=== PATIENT | female | born 1995 | race Caucasian/White ===

== ENCOUNTER 2019-05-01 07:59 | Outpatient (CLI) | payer OTHER, SELFPAY ==
[2019-05-01 08:48] LABS: Basophils Percent Auto 0.4 % (0.2-1.2); Eosinophils Absolute Auto 0.1 K/mm3 (0-0.3); Eosinophils Percent Auto 1.7 % (0-4.4); Hematocrit 38.6 % (37.0-47.0); Hemoglobin 12.9 g/dL (12.0-15.0); Immature Granulocyte Absolute 0.01 K/mm3 (0.00-0.031); Immature Granulocyte Percent A 0.2 % (0-0.5); Lymphocytes Absolute Auto 1.41 K/mm3 (0.9-3.2); Lymphocytes Percent Auto 26.1 % (18.3-44.2); Mean Corpuscular HGB Conc 33.4 g/dl (32-36); Mean Corpuscular Hemoglobin 28.9 pg (26-34); Mean Corpuscular Volume 86.4 fl (80-100); Mean Platelet Volume 9.2 fl (7.4-10.4); Monocytes Absolute Auto 0.5 K/mm3 (0.1-0.6); Monocytes Percent Auto 9.2 % (2.6-8.5); Neutrophils Absolute Auto 3.4 K/mm3 (1.3-6.7); Neutrophils Percent Auto 62.4 % (45.5-73.1); Platelet Count Result 254 k/mm3 (150-375); Red Blood Count 4.47 M/mm3 (4.2-5.4); Red Cell Distribution Width 12.5 % (11.5-14.5); White Blood Count 5.4 K/mm3 (4.5-10.0)
[2019-05-01 09:02] LABS: Alanine Aminotransferase 29 U/L (4-35); Albumin Level 4.4 g/dL (3.5-5.1); Alkaline Phosphatase 69 U/L (38-126); Aspartate Amino Transferase 34 U/L (14-36); Bilirubin,Total 0.5 mg/dL (0.2-1.3); Blood Urea Nitrogen 19 mg/dL (7-17); Calcium 8.4 mg/dL (8.4-10.2); Carbon Dioxide 22 mmol/L (22-30); Chloride 103 mmol/L (98-107); Estimated Glomerular Filt Rate > 60; Glucose 96 mg/dL (65-105); Sodium 139 mmol/L (137-145)
[2019-05-01 09:20] LABS: Rheumatoid Factor 65.2 IU/ML (<12)
[2019-05-01 09:30] LABS: Free T4 Free Thyroxine 0.75 ng/mL (0.78-2.19)
[2019-05-01 09:34] LABS: Cortisol Random 7.73 ug/dL
[2019-05-01 10:08] LABS: Folic Acid 13.9 ng/mL (2.76->20)
[2019-05-03 04:49] LABS: Insulin Level Total 4.6 uIU/mL (<=19.6); Thyroid Peroxidase Antibodies 204 IU/mL (<9)
[2019-05-03 12:39] LABS: LH 3.9 mIU/mL (***); Progesterone 4.2 ng/mL (***); Triiodothyronine T3 Free 3.3 pg/mL (2.3-4.2)
[2019-05-04 04:27] LABS: Adrenocorticotropic Hormone 18 pg/mL (6-50)
[2019-05-04 13:54] LABS: Thyroid Stimulating Immunoglob <89 % baseline (<140)
[2019-05-04 15:40] LABS: Testosterone Free 2.2 pg/mL (0.1-6.4); Testosterone Total 20 ng/dL (2-45)
[2019-05-06 13:19] LABS: DHEA-Sulfate 121 mcg/dL (18-391)
== END 2019-05-01 08:00 | disposition home or self-care (01) ==
PROVIDERS: Visit Provider Internal Medicine Endocrinology, Diabetes & Metabolism
DX: E06.3 Autoimmune thyroiditis (principal); N92.6 Irregular menstruation, unspecified; R53.83 Other fatigue
CPT/HCPCS: 36415; 80053; 82024; 82533; 82607; 82627; 82746; 83001; 83002; 83525; 84144; 84146; 84402; 84403; 84439; 84443; 84445; 84481; 85025; 86038; 86376; 86430

== ENCOUNTER 2019-05-02 07:33 | Outpatient (CLI) | payer OTHER, SELFPAY ==
--- NOTE | ~2019-05-02 | US_ITS ---
EXAMINATION: US thyroid EXAM DATE: 05/02/2019 07:57 INDICATION: Goiter. TECHNIQUE: Multiple grayscale and Doppler images of the thyroid were obtained (by a technologist who performed the scan) and subsequently reviewed. Individual nodules may be reported using TI-RADS syst em as designated by the 2017 ACR White Paper TI-RADS committee. Comparison is made to prior examinati on from 07/11/2012. FINDINGS: Right thyroid lobe measures 3.7 x 2.1 x 1.3 cm, the left measuring 3.4 x 1.7 x 1.2 cm. There is diffu sely mildly heterogeneous thyroid echogenicity with mildly lobular contour, but no focal nodules iden tified. The isthmus measures 4 mm in thickness. IMPRESSION: Mildly heterogeneous and enlarged thyroid. Reviewed, dictated and finalized at location B. 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
== END 2019-05-02 07:34 | disposition home or self-care (01) ==
LOC: ANHIMG 07:39
PROVIDERS: Visit Provider Internal Medicine Endocrinology, Diabetes & Metabolism
DX: E04.9 Nontoxic goiter, unspecified (principal)
CPT/HCPCS: 76536

== ENCOUNTER 2019-06-20 07:45 | Outpatient (CLI) | payer OTHER, SELFPAY ==
[2019-06-20 08:20] LABS: Alanine Aminotransferase 18 U/L (4-35); Albumin Level 4.5 g/dL (3.5-5.1); Alkaline Phosphatase 56 U/L (38-126); Aspartate Amino Transferase 29 U/L (14-36); Bilirubin,Total 0.2 mg/dL (0.2-1.3); Blood Urea Nitrogen 18 mg/dL (7-17); Calcium 9.2 mg/dL (8.4-10.2); Carbon Dioxide 30 mmol/L (22-30); Chloride 102 mmol/L (98-107); Estimated Glomerular Filt Rate > 60; Glucose 115 mg/dL (65-105); Potassium 4.2 mmol/L (3.4-5.0); Sodium 137 mmol/L (137-145)
[2019-06-22 12:10] LABS: Triiodothyronine T3 Free 2.9 pg/mL (2.3-4.2)
== END 2019-06-20 07:46 | disposition home or self-care (01) ==
LOC: ANHLAB 07:50
PROVIDERS: Visit Provider Internal Medicine Endocrinology, Diabetes & Metabolism
DX: E03.9 Hypothyroidism, unspecified (principal)
CPT/HCPCS: 36415; 80053; 84439; 84443; 84481

== ENCOUNTER 2020-01-18 06:43 | Emergency (ER) | payer OTHER, SELFPAY ==
--- NOTE | ~2020-01-18 | XR_ITS ---
EXAMINATION: XR elbow RT min 3V DATE: 01/18/2020 08:40 INDICATION: Right elbow pain. TECHNIQUE: 4 views of right elbow were obtained. COMPARISON: None. FINDINGS: Bone alignment is normal. No fracture. Joint spaces are well maintained. There is no elbow joint effusion. IMPRESSION: 1. Normal right elbow. Reviewed, dictated and finalized at location B. 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 Normal right elbow.
[2020-01-18 06:48] VITALS: BP 134/84; PULSE 58; RESP 18; TEMP 36.9; O2SAT 100
--- NOTE | 2020-01-18 08:14 | ED.UPPEXIN ---
HPI - Extremity Injury (Upper) General Chief Complaint: Extremity Injury, Upper Stated Complaint: elbow swelling and pain Time Seen by Provider: 01/18/20 08:13 Source: patient Mode of arrival: ambulatory Limitations: no limitations History of Present Illness HPI narrative: 24 years old female complaining of right elbow pain, worse with movement, started 2 weeks ago and gradually getting worse. 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 Right elbow pain started day 1 and gradually getting worse. Was seen by her family physician 1 week ago started on anti-inflammatory medication without improvement. Patient denies any trauma, fever, chills, nausea, vomiting. Related Data Home Medications Medication Instructions Recorded Confirmed carbamazepine 400 mg PO BID 01/18/20 sertraline 100 mg PO HS 01/18/20 thyroid (pork) [[place] Thyroid] 30 mg PO QACDINNER 01/18/20 thyroid (pork) [[place] Thyroid] 60 mg PO DAILY 01/18/20 topiramate 50 mg PO BID 01/18/20 Allergies Allergy/AdvReac Type Severity Reaction Status Date / Time No Known Allergies Allergy Unknown Verified 01/18/20 06:56 Review of Systems Review of Systems: Narrative: CONSTITUTIONAL: Denies fever, chills, or sweats. EYES: Denies visual changes, redness, or discharge. ENT: Denies rhinorrhea, congestion, sore throat, or otalgia. CARDIOVASCULAR: Denies chest pain, palpitations, or edema. RESPIRATORY: Denies cough or dyspnea. GASTROINTESTINAL: Denies abdominal pain, nausea, vomiting, or diarrhea. GENITOURINARY: Denies dysuria or hematuria. SKIN: Denies rash or itching. MUSCULOSKELETAL: Denies back pain, joint pain, or myalgia. NEUROLOGIC: Denies headache, numbness, or weakness. PSYCHIATRIC: Denies anxiety or depression. PMFSH Social History Social History Gender identity (if verbalized by the patient): Female Exam Narrative: Exam Narrative: General appearance: Well-developed, well-nourished Skin: Normal color Chest and respiratory: Airway patent, no respiratory distress, no accessory muscle use Heart: Regular rate/rhythm Vascular: Normal peripheral pulses, normal capillary refill. 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 Right elbow x-ray ordered. Patient need to stop her job or do light activity job. Anti-inflammatory medication to help to cool the pain down but not to cure the underlying cause which is strenuous physical work. Differential Diagnosis Differential diagnosis: Likely other (Avulsion fracture, musculoskeletal strain/sprain) Critical Care Time Critical Care Time Critical Care Time: No Discharge Plan Discharge Clinical Impression: Strain of elbow, right Qualifiers: Encounter type: subsequent encounter Qualified Code(s): S46.911D - St
--- NOTE | 2020-01-18 08:46 | PC.NURSE ---
pt refusing motrin. pt requesting mri. states does not appreciate having edps educated guess of diagnosis. somebody better figure something out . charge nurse notified and asked to speak with pt.
== END 2020-01-18 09:35 | disposition home or self-care (01) ==
PROVIDERS: Emergency Provider Emergency Medicine
DX: S46.911A Strain of unspecified muscle, fascia and tendon at shoulder and upper arm level, right arm, initial encounter (principal); X50.3XXA Overexertion from repetitive movements, initial encounter
CPT/HCPCS: 73080; 99283

== ENCOUNTER 2020-04-23 10:07 | Emergency (ER) | payer OTHER, SELFPAY ==
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
[2020-04-23 10:30] VITALS: BP 129/92; PULSE 83; RESP 18; TEMP 37.1; O2SAT 100
[2020-04-24 13:13] LABS: SARS-CoV-2 RNA PCR Negative
== END 2020-04-23 10:35 | disposition home or self-care (01) ==
PROVIDERS: Emergency Provider Nurse Practitioner Family
DX: J02.9 Acute pharyngitis, unspecified (principal); Z20.822 Contact with and (suspected) exposure to COVID-19; E78.00 Pure hypercholesterolemia, unspecified; I10 Essential (primary) hypertension; E03.9 Hypothyroidism, unspecified; F41.9 Anxiety disorder, unspecified; F32.9 Major depressive disorder, single episode, unspecified
CPT/HCPCS: 87081; 87426; 87880; 99213; C9803; G0463; U0003; U0005

== ENCOUNTER 2020-05-07 20:48 | Emergency (ER) | payer OTHER, SELFPAY ==
[2020-05-07 20:53] VITALS: BP 132/82; PULSE 67; RESP 23; TEMP 36.4; O2SAT 99
== END 2020-05-08 00:26 | disposition left against medical advice (07) ==
LOC: ANHED 22:45
DX: L29.2 Pruritus vulvae (principal)
CPT/HCPCS: 99199

== ENCOUNTER 2020-06-08 15:12 | Emergency (ER) | payer OTHER, SELFPAY ==
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
[2020-06-08 15:40] VITALS: BP 120/75; PULSE 70; RESP 16; TEMP 35.8; O2SAT 98
== END 2020-06-08 15:50 | disposition home or self-care (01) ==
PROVIDERS: Emergency Provider Nurse Practitioner
DX: J32.9 Chronic sinusitis, unspecified (principal); E78.00 Pure hypercholesterolemia, unspecified; I10 Essential (primary) hypertension; E03.9 Hypothyroidism, unspecified; F41.9 Anxiety disorder, unspecified; F31.9 Bipolar disorder, unspecified
CPT/HCPCS: 99213; G0463

== ENCOUNTER 2021-03-20 12:24 | Emergency (ER) | payer OTHER, SELFPAY ==
[2021-03-20 12:34] VITALS: BP 121/80; PULSE 61; RESP 18; TEMP 36.7; O2SAT 97
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
== END 2021-03-20 13:06 | disposition home or self-care (01) ==
PROVIDERS: Emergency Provider Nurse Practitioner
DX: J02.0 Streptococcal pharyngitis (principal); Z20.822 Contact with and (suspected) exposure to COVID-19; E78.00 Pure hypercholesterolemia, unspecified; I10 Essential (primary) hypertension; E03.9 Hypothyroidism, unspecified; F12.90 Cannabis use, unspecified, uncomplicated
CPT/HCPCS: 87426; 87880; 99213; C9803; G0463

== ENCOUNTER 2021-07-01 09:04 | Emergency (ER) | payer OTHER, SELFPAY ==
[2021-07-01 09:06] VITALS: BP 133/74; PULSE 97; RESP 18; TEMP 36.8; O2SAT 100
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
[2021-07-01 10:01] LABS: Add Urine Microscopic? YES; Appearance Urine Cloudy (Clear); Bacteria Urine Trace /hpf; Bilirubin Urine Negative (Negative); Blood Urine 1+ (Negative); Color Urine Yellow (Yellow); Glucose Urine UA Negative (Negative); Ketones Urine Negative (Negative); Leukocyte Esterase Ur 3+ LEU/UL (Negative); Mucus Urine Moderate /lpf; Nitrate Urine Negative (Negative); Protein Urine 1+ mg/dL (Negative); Squamous Epithelial Cell Urine Many /hpf (Few); Urobilinogen Urine Negative mg/dL (<2.0)
[2021-07-01 10:05] LABS: Specific Grav Ur 1.032 (1.001-1.035)
[2021-07-01] MEDS: FLUCONAZOLE 150 MG TABLET PO (10:07)
== END 2021-07-01 10:34 | disposition home or self-care (01) ==
PROVIDERS: Physician Assistant; Emergency Provider Emergency Medicine
DX: B37.3 Candidiasis of vulva and vagina (principal); N39.0 Urinary tract infection, site not specified; F31.9 Bipolar disorder, unspecified; E78.00 Pure hypercholesterolemia, unspecified; I10 Essential (primary) hypertension; E03.9 Hypothyroidism, unspecified
CPT/HCPCS: 81001; 81025; 87086; 87088; 99283; A9270

== ENCOUNTER 2021-07-03 05:07 | Emergency (ER) | payer OTHER, SELFPAY ==
[2021-07-03 05:11] VITALS: BP 136/86; PULSE 89; RESP 18; TEMP 36.1; O2SAT 98
--- NOTE | 2021-07-03 05:15 | PC.NURSE ---
When triaging pt RN asked pt for weight. Pt states I will not give that to you. RN asked if pt could write it down. Pt states I dont know what you dont understand. I am not giving it to you. RN explained need to dose medications off weight. Pt stated Well we will cross that bridge when we get there wont we.
[2021-07-03] MEDS: HYDROcodone/acetaminophen (*CRX) 5-325 MG TABLET 1 TAB PO (05:31)
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
[2021-07-03 05:48] LABS: Add Urine Microscopic? YES; Appearance Urine Turbid (Clear); Bacteria Urine 1+ /hpf; Bilirubin Urine Negative (Negative); Blood Urine 1+ (Negative); Calcium Oxalate Crystals Urine Present /hpf; Color Urine Amber (Yellow); Glucose Urine UA Negative (Negative); Ketones Urine Negative (Negative); Leukocyte Esterase Ur 2+ LEU/UL (Negative); Mucus Urine Moderate /lpf; Nitrate Urine Positive (Negative); Protein Urine 1+ mg/dL (Negative); RBC Urine >75 /hpf (0-2); Squamous Epithelial Cell Urine Many /hpf (Few); WBC Clumps Urine Present /HPF; WBC Urine >75 /hpf
[2021-07-03 05:56] LABS: Specific Grav Ur 1.032 (1.001-1.035)
[2021-07-03 06:04] LABS: Basophils Percent Auto 0.2 % (0.2-1.2); Eosinophils Absolute Auto 0.2 K/mm3 (0-0.3); Eosinophils Percent Auto 2.4 % (0-4.4); Hematocrit 40.6 % (37.0-47.0); Immature Granulocyte Absolute 0.04 K/mm3 (0.00-0.031); Immature Granulocyte Percent A 0.4 % (0-0.5); Lymphocytes Absolute Auto 1.99 K/mm3 (0.9-3.2); Lymphocytes Percent Auto 20.2 % (18.3-44.2); Mean Corpuscular Hemoglobin 27.5 pg (26-34); Mean Corpuscular Volume 85.8 fl (80-100); Monocytes Percent Auto 9.9 % (2.6-8.5); Neutrophils Absolute Auto 6.6 K/mm3 (1.3-6.7); Neutrophils Percent Auto 66.9 % (45.5-73.1); Platelet Count Result 291 k/mm3 (150-375); Red Blood Count 4.73 M/mm3 (4.2-5.4); Red Cell Distribution Width 13.6 % (11.5-14.5); White Blood Count 9.8 K/mm3 (4.5-10.0)
[2021-07-03 06:14] LABS: Anion Gap 5 mmol/L (8-16); Blood Urea Nitrogen 16 mg/dL (7-17); Calcium 8.4 mg/dL (8.4-10.2); Carbon Dioxide 24 mmol/L (22-30); Chloride 109 mmol/L (98-107); Estimated Glomerular Filt Rate > 60; Glucose 129 mg/dL (65-110); Potassium 3.9 mmol/L (3.4-5.0); Sodium 138 mmol/L (137-145)
[2021-07-03] MEDS: cefTRIAXone 1 GM VIAL IM (06:26)
[2021-07-03 06:29] VITALS: BP 143/89; PULSE 59; RESP 18; O2SAT 98
== END 2021-07-03 06:42 | disposition home or self-care (01) ==
PROVIDERS: Emergency Provider Family Medicine
DX: N30.00 Acute cystitis without hematuria (principal); B37.3 Candidiasis of vulva and vagina; E11.65 Type 2 diabetes mellitus with hyperglycemia; E06.3 Autoimmune thyroiditis; E78.00 Pure hypercholesterolemia, unspecified; I10 Essential (primary) hypertension; E03.9 Hypothyroidism, unspecified
CPT/HCPCS: 36415; 80048; 81001; 85025; 87070; 87086; 87491; 87591; 87808; 96372; 99284; A9270; J0696

== ENCOUNTER 2021-08-08 04:10 | Emergency (ER) | payer OTHER, SELFPAY ==
--- NOTE | ~2021-08-08 | CT_ITS ---
EXAMINATION: CTA chest PE protocol DATE: 08/08/2021 06:40 CDT INDICATION: Sharp right chest pain. TECHNIQUE: Computed tomographic angiography (CTA) of the chest was performed with 100 mL Omnipaque-35 0 intravenous contrast. The dose-length product was 762.69 mGy-cm. Maximum intensity projection 3D-re constructions of the aorta and other arteries were constructed by the technologist on a separate work station. Automated exposure control and iterative reconstruction technique were employed. COMPARISON: Chest x-ray dated 09/25/2014. FINDINGS: Study is technically adequate without evidence for pulmonary embolism. No significant pleur al or pericardial effusion. Mildly enlarged mediastinal lymph node and precarinal location measuring 12 mm. There are nonenlarged axillary lymph nodes. Upper abdomen is unremarkable. No pneumothorax. Th ere is a 5 mm fissural lymph node on the right, image 48. No focal airspace consolidation. No pneumot horax. No endobronchial lesions. No acute osseous abnormality. IMPRESSION: 1. No acute cardiopulmonary disease. No evidence for pulmonary embolism. 2: Mild mediastinal lymphadenopathy, likely reactive. Reviewed, dictated and finalized at location A.
--- NOTE | 2021-08-08 04:13 | ECG_ITS ---
Measurements Intervals [place] Rate: 89 P: 34 [place]: 150 QRS: 18 QRSD: 90 T: 8 QT: 346 QTc: 421 Interpretive Statements SINUS RHYTHM NORMAL ECG COMPARED TO ECG 12/05/2018 20:34:29 NO SIGNIFICANT CHANGES Electronically Signed On 08-08-2021 16:56:56 CDT by Chivo Flores M.D.
[2021-08-08 04:31] VITALS: PULSE 97
[2021-08-08 04:33] VITALS: BP 122/92; PULSE 87; RESP 20; O2SAT 99
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
[2021-08-08 04:42] LABS: Basophils Percent Auto 0.5 % (0.2-1.2); Eosinophils Absolute Auto 0.1 K/mm3 (0-0.3); Eosinophils Percent Auto 1.8 % (0-4.4); Hematocrit 40.4 % (37.0-47.0); Hemoglobin 13.7 g/dL (12.0-15.0); Immature Granulocyte Absolute 0.02 K/mm3 (0.00-0.031); Immature Granulocyte Percent A 0.3 % (0-0.5); Lymphocytes Absolute Auto 1.82 K/mm3 (0.9-3.2); Lymphocytes Percent Auto 27.7 % (18.3-44.2); Mean Corpuscular HGB Conc 33.9 g/dl (32-36); Mean Corpuscular Hemoglobin 28.2 pg (26-34); Mean Corpuscular Volume 83.1 fl (80-100); Mean Platelet Volume 9.2 fl (7.4-10.4); Monocytes Absolute Auto 1.2 K/mm3 (0.1-0.6); Neutrophils Absolute Auto 3.4 K/mm3 (1.3-6.7); Neutrophils Percent Auto 51.7 % (45.5-73.1); Platelet Count Result 295 k/mm3 (150-375); Red Blood Count 4.86 M/mm3 (4.2-5.4); White Blood Count 6.6 K/mm3 (4.5-10.0)
[2021-08-08] MEDS: KETOROLAC 30 MG/ML VIAL (*BKC) IV PUSH (04:44)
[2021-08-08] MEDS: ASPIRIN 81 MG CHEWABLE TABLET 324 MG PO (04:45)
[2021-08-08 04:53] LABS: Alanine Aminotransferase 29 U/L (6-35); Albumin Level 4.1 g/dL (3.5-5.1); Alkaline Phosphatase 73 U/L (38-126); Anion Gap 5 mmol/L (8-16); Aspartate Amino Transferase 36 U/L (14-36); Bilirubin,Total 0.2 mg/dL (0.2-1.3); Blood Urea Nitrogen 14 mg/dL (7-17); Calcium 8.7 mg/dL (8.4-10.2); Carbon Dioxide 23 mmol/L (22-30); Chloride 110 mmol/L (98-107); Estimated CRCL calculation 132 ml/min; Estimated Glomerular Filt Rate > 60; Glucose 114 mg/dL (65-110); Lipase 82 U/L (23-300); Potassium 4.3 mmol/L (3.4-5.0); Sodium 138 mmol/L (137-145)
[2021-08-08 04:57] LABS: INR 0.9; Prothrombin Time 12.2 Seconds (11.1-14.7)
[2021-08-08 04:58] LABS: Partial Thromboplastin Time 29.5 SECONDS (22.3-36.8)
[2021-08-08 05:04] LABS: Troponin I < 0.012 ng/mL (0.000-0.034)
--- NOTE | 2021-08-08 05:21 | PC.NURSE ---
Pt readly admits to smoking Cannabis prior to arrival after being woke up with chest pain. Pt. currently on her period denies being preg. Also has ana IUD.
[2021-08-08 07:08] VITALS: BP 136/91; PULSE 65; RESP 20; O2SAT 99
== END 2021-08-08 07:11 | disposition home or self-care (01) ==
PROVIDERS: Emergency Provider Emergency Medicine; PCP Emergency Medicine
DX: R07.89 Other chest pain (principal); E03.9 Hypothyroidism, unspecified; I10 Essential (primary) hypertension
CPT/HCPCS: 36415; 71275; 80053; 83690; 84484; 85025; 85610; 85730; 93005; 96374; 99284; A9270; J1885; Q9967

== ENCOUNTER 2021-08-12 19:43 | Emergency (ER) | payer OTHER, SELFPAY ==
--- NOTE | ~2021-08-12 | XR_ITS ---
EXAMINATION: XR chest 2V Exam Date/Time: 08/12/2021 20:30 CDT HISTORY: SHARP MEDIAL CP Comparison: 09/25/2014. RESULT: Lines, tubes, and devices: None. Lungs and pleura: Clear. Cardiomediastinal silhouette: Stable cardiomediastinal silhouette. Other: No acute osseous or upper abdominal finding. IMPRESSION: No acute cardiopulmonary process. Reviewed, dictated and finalized at location K.
[2021-08-12 19:45] VITALS: O2SAT 99
--- NOTE | 2021-08-12 19:46 | ECG_ITS ---
Measurements Intervals [place] Rate: 98 P: 43 [place]: 145 QRS: 31 QRSD: 88 T: 3 QT: 337 QTc: 431 Interpretive Statements SINUS RHYTHM WITHIN NORMAL LIMITS COMPARED TO ECG 08/08/2021 04:19:48 NO SIGNIFICANT CHANGE Electronically Signed On 08-13-2021 7:25:55 CDT by Cipriano Mcdonald M.D.
[2021-08-12 19:52] VITALS: BP 147/113; PULSE 90; RESP 18; TEMP 36.7; O2SAT 100
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
[2021-08-12 20:20] LABS: Basophils Percent Auto 0.4 % (0.2-1.2); Eosinophils Absolute Auto 0.1 K/mm3 (0-0.3); Eosinophils Percent Auto 1.2 % (0-4.4); Hemoglobin 13.9 g/dL (12.0-15.0); Immature Granulocyte Absolute 0.02 K/mm3 (0.00-0.031); Immature Granulocyte Percent A 0.2 % (0-0.5); Lymphocytes Absolute Auto 2.88 K/mm3 (0.9-3.2); Lymphocytes Percent Auto 35.8 % (18.3-44.2); Mean Corpuscular HGB Conc 33.1 g/dl (32-36); Mean Corpuscular Hemoglobin 27.3 pg (26-34); Mean Corpuscular Volume 82.5 fl (80-100); Mean Platelet Volume 8.8 fl (7.4-10.4); Monocytes Absolute Auto 1.2 K/mm3 (0.1-0.6); Monocytes Percent Auto 14.9 % (2.6-8.5); Neutrophils Absolute Auto 3.8 K/mm3 (1.3-6.7); Neutrophils Percent Auto 47.5 % (45.5-73.1); Platelet Count Result 340 k/mm3 (150-375); Red Blood Count 5.09 M/mm3 (4.2-5.4); Red Cell Distribution Width 12.9 % (11.5-14.5)
[2021-08-12] MEDS: ASPIRIN 81 MG CHEWABLE TABLET 324 MG PO (20:23)
[2021-08-12 20:29] LABS: Alanine Aminotransferase 41 U/L (6-35); Albumin Level 4.8 g/dL (3.5-5.1); Alkaline Phosphatase 79 U/L (38-126); Anion Gap 8 mmol/L (8-16); Aspartate Amino Transferase 40 U/L (14-36); Bilirubin,Total 0.5 mg/dL (0.2-1.3); Blood Urea Nitrogen 14 mg/dL (7-17); Calcium 9.1 mg/dL (8.4-10.2); Carbon Dioxide 23 mmol/L (22-30); Chloride 104 mmol/L (98-107); Estimated CRCL calculation 114 ml/min; Estimated Glomerular Filt Rate > 60; Glucose 106 mg/dL (65-110); Lipase 62 U/L (23-300); Potassium 3.6 mmol/L (3.4-5.0); Sodium 135 mmol/L (137-145)
[2021-08-12 20:30] LABS: INR 1.1; Prothrombin Time 13.4 Seconds (11.1-14.7)
--- NOTE | 2021-08-12 20:30 | PC.NURSE ---
Pt refused morphine, stating, I am a recovering addict and I want nothing to do with that. This nurse notified MD Barker about the pt medication preference.
[2021-08-12 20:31] LABS: Partial Thromboplastin Time 29.6 SECONDS (22.3-36.8)
[2021-08-12 20:35] VITALS: BP 136/93; PULSE 96; RESP 18; O2SAT 99
[2021-08-12] MEDS: NITROGLYCERIN SL 0.4 MG TABLET SUBLINGUAL (20:35)
[2021-08-12 20:41] LABS: Troponin I < 0.012 ng/mL (0.000-0.034)
[2021-08-12] MEDS: KETOROLAC 15 MG/ML VIAL (*BKC) IV PUSH (20:54)
[2021-08-12 20:56] VITALS: BP 133/92; PULSE 97; RESP 16; O2SAT 99
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
[2021-08-12 21:55] VITALS: BP 140/101; PULSE 88; RESP 18; O2SAT 97
== END 2021-08-12 21:55 | disposition home or self-care (01) ==
PROVIDERS: Emergency Medicine; Emergency Provider Emergency Medicine; PCP Emergency Medicine
DX: M94.0 Chondrocostal junction syndrome [Tietze] (principal); R07.89 Other chest pain; I10 Essential (primary) hypertension; E78.5 Hyperlipidemia, unspecified; E06.3 Autoimmune thyroiditis; E03.9 Hypothyroidism, unspecified; R73.03 Prediabetes; Z79.84 Long term (current) use of oral hypoglycemic drugs
CPT/HCPCS: 36415; 71046; 80053; 83690; 84484; 85025; 85610; 85730; 93005; 96374; 99284; A9270; J1885

== ENCOUNTER 2021-12-02 10:40 | Outpatient (CLI) | payer OTHER, SELFPAY ==
[2021-12-02 11:45] LABS: Beta HCG Quantitative 94.38 mIU/ML
== END 2021-12-02 10:41 | disposition home or self-care (01) ==
LOC: ANHLAB 10:45
PROVIDERS: PCP Emergency Medicine; Visit Provider Obstetrics & Gynecology
DX: N91.2 Amenorrhea, unspecified (principal)
CPT/HCPCS: 36415; 84702; 85461

== ENCOUNTER 2021-12-25 09:02 | Emergency (ER) | payer OTHER, SELFPAY ==
[2021-12-25 09:17] VITALS: BP 124/71; PULSE 98; RESP 16; TEMP 36.4; O2SAT 98
--- NOTE | 2021-12-25 09:51 | PC.NURSE ---
pt refusing ABG.
--- NOTE | 2021-12-25 09:53 | PC.NURSE ---
pt reports she just wants a piece of paper that says she has covid Informed patient that she would have to see a provider. COVID test ordered and will inform patient of results.
--- NOTE | 2021-12-25 09:53 | PCRCNOTE ---
PT. REFUSED THE ABG; DR. HUSSEIN NOTIFIED.
[2021-12-25 10:00] LABS: Alanine Aminotransferase 27 U/L (6-35); Albumin Level 4.2 g/dL (3.5-5.1); Alkaline Phosphatase 92 U/L (38-126); Anion Gap 10 mmol/L (8-16); Aspartate Amino Transferase 24 U/L (14-36); Bilirubin,Total 0.4 mg/dL (0.2-1.3); Blood Urea Nitrogen 11 mg/dL (7-17); Carbon Dioxide 26 mmol/L (22-30); Chloride 104 mmol/L (98-107); Estimated CRCL calculation 139 ml/min; Estimated Glomerular Filt Rate > 60; Glucose 138 mg/dL (65-110); Potassium 3.6 mmol/L (3.4-5.0); Sodium 140 mmol/L (137-145)
[2021-12-25 10:02] LABS: Basophils Percent Auto 0.2 % (0.2-1.2); Eosinophils Absolute Auto 0.1 K/mm3 (0-0.3); Eosinophils Percent Auto 0.4 % (0-4.4); Hematocrit 41.1 % (37.0-47.0); Hemoglobin 13.4 g/dL (12.0-15.0); Immature Granulocyte Absolute 0.05 K/mm3 (0.00-0.031); Immature Granulocyte Percent A 0.4 % (0-0.5); Lymphocytes Absolute Auto 1.57 K/mm3 (0.9-3.2); Lymphocytes Percent Auto 11.2 % (18.3-44.2); Mean Corpuscular HGB Conc 32.6 g/dl (32-36); Mean Corpuscular Hemoglobin 26.9 pg (26-34); Mean Corpuscular Volume 82.4 fl (80-100); Mean Platelet Volume 9.1 fl (7.4-10.4); Monocytes Absolute Auto 1.2 K/mm3 (0.1-0.6); Monocytes Percent Auto 8.8 % (2.6-8.5); Neutrophils Absolute Auto 11.1 K/mm3 (1.3-6.7); Platelet Count Result 310 k/mm3 (150-375); Red Blood Count 4.99 M/mm3 (4.2-5.4)
[2021-12-25 10:39] LABS: SARS-CoV-2 RNA PCR Negative
[2021-12-25 10:44] LABS: Influenza A QL RT-PCR Negative (Negative); Influenza B QL RT-PCR Negative (Negative)
== END 2021-12-25 11:10 | disposition left against medical advice (07) ==
LOC: ANHED 11:09
PROVIDERS: Nurse Practitioner Family; Emergency Provider Emergency Medicine
DX: R50.9 Fever, unspecified (principal); Z20.822 Contact with and (suspected) exposure to COVID-19
CPT/HCPCS: 36415; 80053; 85025; 87502; 99199; C9803; U0003; U0005

== ENCOUNTER 2022-05-30 19:02 | Emergency (ER) | payer OTHER, SELFPAY ==
[2022-05-30 19:08] VITALS: BP 147/88; PULSE 105; RESP 18; TEMP 36.8; O2SAT 100
--- NOTE | 2022-05-30 19:50 | ECG_ITS ---
Measurements Intervals [place] Rate: 82 P: 44 [place]: 149 QRS: 14 QRSD: 86 T: 14 QT: 348 QTc: 409 Interpretive Statements SINUS RHYTHM POSSIBLE LEFT ATRIAL ENLARGEMENT POSSIBLE LEFT VENTRICULAR HYPERTROPHY BASELINE WANDER- V2-V3 BORDERLINE ECG COMPARED TO ECG 08/12/2021 19:50:44 NO SIGNIFICANT CHANGES Electronically Signed On 05-30-2022 20:43:23 CDT by Manny Mcgowan D.O.
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
[2022-05-30] MEDS: NIFEdipine 30 MG TAB.ER.24 PO (20:24)
[2022-05-30] MEDS: ACETAMINOPHEN 500 MG TABLET 1000 MG PO (20:24)
[2022-05-30 20:52] LABS: Basophils Percent Auto 0.3 % (0.2-1.2); Eosinophils Absolute Auto 0.1 K/mm3 (0-0.3); Eosinophils Percent Auto 0.9 % (0-4.4); Hematocrit 39.9 % (37.0-47.0); Hemoglobin 13.2 g/dL (12.0-15.0); Immature Granulocyte Absolute 0.05 K/mm3 (0.00-0.031); Immature Granulocyte Percent A 0.4 % (0-0.5); Lymphocytes Absolute Auto 2.54 K/mm3 (0.9-3.2); Lymphocytes Percent Auto 21.9 % (18.3-44.2); Mean Corpuscular HGB Conc 33.1 g/dl (32-36); Mean Corpuscular Hemoglobin 27.1 pg (26-34); Mean Corpuscular Volume 81.9 fl (80-100); Mean Platelet Volume 9.1 fl (7.4-10.4); Monocytes Percent Auto 8.5 % (2.6-8.5); Neutrophils Absolute Auto 7.9 K/mm3 (1.3-6.7); Platelet Count Result 289 k/mm3 (150-375); Red Blood Count 4.87 M/mm3 (4.2-5.4); Red Cell Distribution Width 13.9 % (11.5-14.5); White Blood Count 11.6 K/mm3 (4.5-10.0)
[2022-05-30 20:58] LABS: Alanine Aminotransferase 22 U/L (6-35); Albumin Level 4.1 g/dL (3.5-5.1); Alkaline Phosphatase 76 U/L (38-126); Anion Gap 6 mmol/L (8-16); Aspartate Amino Transferase 26 U/L (14-36); Bilirubin,Total 0.3 mg/dL (0.2-1.3); Blood Urea Nitrogen 13 mg/dL (7-17); Calcium 8.6 mg/dL (8.4-10.2); Carbon Dioxide 26 mmol/L (22-30); Chloride 106 mmol/L (98-107); Estimated CRCL calculation 146 ml/min; Estimated Glomerular Filt Rate > 60; Glucose 110 mg/dL (65-110); Potassium 3.8 mmol/L (3.4-5.0); Sodium 138 mmol/L (137-145)
[2022-05-30 21:09] LABS: Troponin I < 0.012 ng/mL (0.000-0.034)
[2022-05-30 21:13] VITALS: PULSE 76; RESP 20
--- NOTE | 2022-05-30 21:26 | PC.NURSE ---
Patient moved to room 7 from 5 upon request. Patient comes to desk stating I need to move rooms, I am not going to be in a room with another patient who has c-diff. I just heard them talking about that a minute ago. I need my stuff moved now. This nurse informed her that she was moved from room 16 to 5 since she c/o cp on initial assessment to another RN and that was the only monitored room that was open. Patient still states well I am not going to stay in a room with another patient who has c-diff. Patient informed that the patient on the other side of the curtain is in a different room and hand hygiene has been maintained at all times. Patient refused to go back into room 5 and waited until room 7 was cleaned. Patient informed again that room 5 was the only one available at the time when she c/o chest pain so she was placed in that room. operating room registered nurse notified and spoke with patient as well in regards to situation.
[2022-05-30 21:28] VITALS: PULSE 81; RESP 24
[2022-05-30 21:29] VITALS: BP 138/98; PULSE 81; RESP 22
[2022-05-30 21:30] VITALS: PULSE 76
[2022-05-30 21:31] VITALS: BP 136/95; PULSE 75; RESP 24
[2022-05-30 21:34] LABS: Thyroid Stimulating Hormone Reflex 0.092 uIU/mL (0.465-4.68)
[2022-05-30 21:58] LABS: Appearance Urine Clear (Clear); Bacteria Urine 2+ /hpf; Bilirubin Urine Negative (Negative); Blood Urine Negative (Negative); Calcium Oxalate Crystals Urine Present /hpf; Color Urine Yellow (Yellow); Glucose Urine UA Negative (Negative); Ketones Urine Trace mg/dL (Negative); Leukocyte Esterase Ur 1+ LEU/UL (Negative); Nitrate Urine Negative (Negative); Non Pathogenic Casts 0-2; Protein Urine Negative (Negative); Specific Grav Ur 1.033 (1.001-1.035); Squamous Epithelial Cell Urine Moderate /hpf (Few); Urobilinogen Urine 0.2 mg/dL (<2.0); pH Urine 5.5 (5.0-9.0)
[2022-05-30 22:01] LABS: Add Urine Microscopic? YES
[2022-05-30 22:21] LABS: Free T4 Free Thyroxine Reflex 1.19 ng/dL (0.78-2.19)
[2022-05-30 23:10] LABS: Total Triiodothyronine (T3) 2.12 NG/ML (0.97-1.69)
== END 2022-05-30 22:19 | disposition home or self-care (01) ==
PROVIDERS: Emergency Provider Preventive Medicine Aerospace Medicine
DX: O10.911 Unspecified pre-existing hypertension complicating pregnancy, first trimester (principal); Z3A.00 Weeks of gestation of pregnancy not specified; R82.71 Bacteriuria
CPT/HCPCS: 36415; 80053; 81001; 84439; 84443; 84480; 84484; 84702; 85025; 87086; 87088; 93005; 99284; A9270

== ENCOUNTER 2022-06-25 08:36 | Outpatient (CLI) | payer OTHER, SELFPAY ==
[2022-06-25 09:34] LABS: Alanine Aminotransferase 21 U/L (6-35); Albumin Level 3.9 g/dL (3.5-5.1); Alkaline Phosphatase 72 U/L (38-126); Anion Gap 7 mmol/L (8-16); Aspartate Amino Transferase 21 U/L (14-36); Bilirubin,Total 0.5 mg/dL (0.2-1.3); Blood Urea Nitrogen 7 mg/dL (7-17); Calcium 8.6 mg/dL (8.4-10.2); Carbon Dioxide 24 mmol/L (22-30); Chloride 105 mmol/L (98-107); Cholesterol 176 mg/dL (0-200); Estimated Glomerular Filt Rate > 60; Glucose 99 mg/dL (65-110); HDL Direct 57 mg/dL; Potassium 3.8 mmol/L (3.4-5.0); Sodium 136 mmol/L (137-145); Triglycerides 96 mg/dL (<150)
[2022-06-25 09:41] LABS: Hemoglobin A1C 5.3 % (<5.7)
[2022-06-25 09:45] LABS: LDL Cholesterol Direct 107 mg/dL
[2022-06-25 10:01] LABS: Free T4 Free Thyroxine 1.71 ng/mL (0.78-2.19)
[2022-06-25 10:04] LABS: Thyroid Stimulating Hormone 0.134 uIU/mL (0.465-4.680)
[2022-06-29 04:36] LABS: Thyroid Peroxidase Antibodies 3700 IU/mL (<9)
== END 2022-06-25 08:37 | disposition home or self-care (01) ==
LOC: ANHLAB 08:39
PROVIDERS: Visit Provider Internal Medicine Endocrinology, Diabetes & Metabolism
DX: E03.9 Hypothyroidism, unspecified (principal); R73.03 Prediabetes
CPT/HCPCS: 36415; 80053; 80061; 83036; 84439; 84443; 84480; 86376

== ENCOUNTER 2022-08-13 16:09 | Emergency (ER) | payer OTHER, SELFPAY ==
--- NOTE | ~2022-08-13 | XR_ITS ---
EXAMINATION: XR chest 2V DATE: 08/13/2022 17:31 INDICATION: Heart palpitations and chest pain TECHNIQUE: PA and lateral views of the chest are obtained. COMPARISON: 08/12/2021 FINDINGS: The lungs are free of acute opacities. No pleural effusion or pneumothorax. The cardiomedia stinal silhouette is normal. The visualized bones and soft tissues are unremarkable. IMPRESSION: 1. No acute cardiopulmonary abnormality. Reviewed, dictated and finalized at location F.
--- NOTE | 2022-08-13 16:16 | ECG_ITS ---
Measurements Intervals [place] Rate: 75 P: 12 [place]: 148 QRS: 22 QRSD: 87 T: 16 QT: 373 QTc: 419 Interpretive Statements SINUS RHYTHM NORMAL ELECTROCARDIOGRAM COMPARED TO ECG 05/30/2022 19:59:52 NO SIGNIFICANT CHANGES Electronically Signed On 08-13-2022 16:31:24 CDT by Cipriano Mcdonald M.D.
[2022-08-13 16:17] VITALS: BP 140/79; PULSE 76; RESP 20; TEMP 36.6; O2SAT 99
[2022-08-13 16:48] LABS: Basophils Percent Auto 0.2 % (0.2-1.2); Eosinophils Absolute Auto 0.2 K/mm3 (0-0.3); Eosinophils Percent Auto 1.2 % (0-4.4); Hematocrit 35.4 % (37.0-47.0); Hemoglobin 11.8 g/dL (12.0-15.0); Immature Granulocyte Absolute 0.06 K/mm3 (0.00-0.031); Immature Granulocyte Percent A 0.5 % (0-0.5); Lymphocytes Percent Auto 15.6 % (18.3-44.2); Mean Corpuscular HGB Conc 33.3 g/dl (32-36); Mean Corpuscular Hemoglobin 27.8 pg (26-34); Mean Corpuscular Volume 83.3 fl (80-100); Mean Platelet Volume 9.2 fl (7.4-10.4); Monocytes Absolute Auto 1.1 K/mm3 (0.1-0.6); Neutrophils Absolute Auto 8.9 K/mm3 (1.3-6.7); Neutrophils Percent Auto 73.5 % (45.5-73.1); Platelet Count Result 255 k/mm3 (150-375); Red Blood Count 4.25 M/mm3 (4.2-5.4); Red Cell Distribution Width 13.6 % (11.5-14.5); White Blood Count 12.2 K/mm3 (4.5-10.0)
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
[2022-08-13 16:51] LABS: Alanine Aminotransferase 20 U/L (6-35); Albumin Level 3.7 g/dL (3.5-5.1); Alkaline Phosphatase 65 U/L (38-126); Anion Gap 6 mmol/L (8-16); Aspartate Amino Transferase 24 U/L (14-36); Bilirubin,Total 0.3 mg/dL (0.2-1.3); Blood Urea Nitrogen 6 mg/dL (7-17); Calcium 8.1 mg/dL (8.4-10.2); Carbon Dioxide 23 mmol/L (22-30); Chloride 104 mmol/L (98-107); Estimated CRCL calculation 208 ml/min; Estimated Glomerular Filt Rate > 60; Glucose 93 mg/dL (65-110); Lipase 46 U/L (23-300); Potassium 3.6 mmol/L (3.4-5.0); Sodium 133 mmol/L (137-145)
[2022-08-13 16:53] LABS: Partial Thromboplastin Time 26.4 SECONDS (22.3-36.8)
[2022-08-13 17:03] LABS: Troponin I < 0.012 ng/mL (0.000-0.034)
[2022-08-13 17:30] VITALS: BP 150/85; PULSE 82; RESP 22; O2SAT 99
[2022-08-13 17:54] LABS: Thyroid Stimulating Hormone 0.116 uIU/mL (0.465-4.680)
[2022-08-13 18:00] LABS: Amphetamine Screen Urine Negative (Negative); Barbiturate Screen Urine Negative (Negative); Benzodiazepines Screen Urine Negative (Negative); Cannabinoid Screen Urine Positive (Negative); Cocaine Screen Urine Negative (Negative); Methadone Screen Urine Negative (Negative); Opiate Screen Urine Negative (Negative); Phencyclidine Screen Urine Negative (Negative)
[2022-08-13 18:13] VITALS: BP 133/82; PULSE 88; RESP 20; O2SAT 97
== END 2022-08-13 18:15 | disposition home or self-care (01) ==
PROVIDERS: Emergency Provider Emergency Medicine
DX: O99.342 Other mental disorders complicating pregnancy, second trimester (principal); F41.9 Anxiety disorder, unspecified; F31.9 Bipolar disorder, unspecified; O26.892 Other specified pregnancy related conditions, second trimester; R00.2 Palpitations; O99.322 Drug use complicating pregnancy, second trimester; F12.10 Cannabis abuse, uncomplicated; O10.912 Unspecified pre-existing hypertension complicating pregnancy, second trimester; O99.282 Endocrine, nutritional and metabolic diseases complicating pregnancy, second trimester; E06.3 Autoimmune thyroiditis; E03.9 Hypothyroidism, unspecified; E78.00 Pure hypercholesterolemia, unspecified; Z87.891 Personal history of nicotine dependence; Z3A.17 17 weeks gestation of pregnancy; Z79.84 Long term (current) use of oral hypoglycemic drugs
CPT/HCPCS: 36415; 71046; 80053; 80307; 83690; 84443; 84484; 85025; 85610; 85730; 93005; 99284

== ENCOUNTER 2022-08-23 11:11 | Emergency (ER) | payer OTHER, SELFPAY ==
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
== END 2022-08-23 11:30 | disposition left against medical advice (07) ==
DX: Z53.21 Procedure and treatment not carried out due to patient leaving prior to being seen by health care provider (principal)
CPT/HCPCS: 99199

== ENCOUNTER 2022-10-14 03:40 | Outpatient (CLI) | payer OTHER, SELFPAY ==
[2022-10-14] VITALS (17 sets, daily range): BP systolic 117–120; BP diastolic 52–78; PULSE 65–80; TEMP 36.6; O2SAT 97–99
--- NOTE | 2022-10-14 05:04 | PC.NURSE ---
Called Dr. Pryor, on-call doctor, to update on pt reason for visit, elevated blood pressures taken at home, headache and tightening of stomach that are now resolved, blood pressure upon admission, tracing, and prescription blood pressure cuff request. Orders received to discharge pt, have pt call office at 0830 to request a prescription blood pressure cuff.
== END 2022-10-14 05:27 ==
LOC: ANHOBPP 03:52 → ANHOBOP 04:01 → ANHOBPP 04:01
PROVIDERS: Visit Provider Obstetrics & Gynecology
DX: O13.9 Gestational [pregnancy-induced] hypertension without significant proteinuria, unspecified trimester (principal); Z3A.00 Weeks of gestation of pregnancy not specified
CPT/HCPCS: 59025; 99199

== ENCOUNTER 2022-11-12 10:42 | Outpatient (RCR) | payer OTHER, SELFPAY ==
[2022-11-12 11:55] LABS: Hematocrit 37.9 % (37.0-47.0); Hemoglobin 12.4 g/dL (12.0-15.0)
[2022-11-12 12:48] LABS: HIV 1/2 Ab P24 Ag Result Negative (Negative)
[2022-11-15] MEDS: RHO(D) IMMUNE GLOBULIN 300 MCG/2 ML SYRINGE IM (10:35)
== END 2022-11-15 06:20 | disposition home or self-care (01) ==
LOC: ANHLAB 10:42
PROVIDERS: Visit Provider Obstetrics & Gynecology
DX: Z11.4 Encounter for screening for human immunodeficiency virus [HIV] (principal); Z29.13 Encounter for prophylactic Rho(D) immune globulin; O36.0130 Maternal care for anti-D [Rh] antibodies, third trimester, not applicable or unspecified; Z3A.00 Weeks of gestation of pregnancy not specified
CPT/HCPCS: 36415; 85014; 85018; 85461; 86703; 86850; 86900; 86901; 90384; 96372; G0432; J2790

== ENCOUNTER 2022-11-21 13:13 | Outpatient (CLI) | payer OTHER, SELFPAY ==
[2022-11-21 13:30] VITALS: BP 127/81; PULSE 107
[2022-11-21 13:46] VITALS: BP 129/80; PULSE 84
[2022-11-21 14:00] VITALS: BP 129/80; PULSE 89
[2022-11-21 14:11] LABS: Basophils Percent Auto 0.1 % (0.2-1.2); Eosinophils Absolute Auto 0.1 K/mm3 (0-0.3); Eosinophils Percent Auto 0.7 % (0-4.4); Hematocrit 35.7 % (37.0-47.0); Hemoglobin 11.8 g/dL (12.0-15.0); Immature Granulocyte Absolute 0.04 K/mm3 (0.00-0.031); Immature Granulocyte Percent A 0.4 % (0-0.5); Lymphocytes Absolute Auto 1.64 K/mm3 (0.9-3.2); Lymphocytes Percent Auto 15.2 % (18.3-44.2); Mean Corpuscular HGB Conc 33.1 g/dl (32-36); Mean Corpuscular Hemoglobin 27.7 pg (26-34); Mean Corpuscular Volume 83.8 fl (80-100); Mean Platelet Volume 9.9 fl (7.4-10.4); Monocytes Absolute Auto 0.9 K/mm3 (0.1-0.6); Monocytes Percent Auto 8.1 % (2.6-8.5); Neutrophils Absolute Auto 8.2 K/mm3 (1.3-6.7); Neutrophils Percent Auto 75.5 % (45.5-73.1); Platelet Count Result 257 k/mm3 (150-375); Red Blood Count 4.26 M/mm3 (4.2-5.4); Red Cell Distribution Width 13.5 % (11.5-14.5); White Blood Count 10.8 K/mm3 (4.5-10.0)
[2022-11-21 14:12] LABS: Appearance Urine Clear (Clear); Bilirubin Urine Negative (Negative); Blood Urine Negative (Negative); Color Urine Yellow (Yellow); Glucose Urine UA Negative (Negative); Ketones Urine Negative (Negative); Leukocyte Esterase Ur Negative LEU/UL (NEGATIVE); Nitrate Urine Negative (Negative); Protein Urine Negative (Negative); Specific Grav Ur 1.026 (1.001-1.035); Urobilinogen Urine 0.2 mg/dL (<2.0); pH Urine 6.5 (5.0-9.0)
[2022-11-21 14:13] LABS: Add Urine Microscopic? NO
[2022-11-21 14:16] LABS: Creatinine Urine 81.1 mg/dL; Total Protein Urine Random 13 mg/dL; Ur Ttl Prot Creatinine Ratio 0.16 mg/mg (0-0.20)
[2022-11-21 14:21] VITALS: BP 140/83; PULSE 84
[2022-11-21 14:22] LABS: Alanine Aminotransferase 16 U/L (6-35); Albumin Level 3.5 g/dL (3.5-5.1); Alkaline Phosphatase 95 U/L (38-126); Anion Gap 6 mmol/L (8-16); Aspartate Amino Transferase 22 U/L (14-36); Bilirubin,Total 0.3 mg/dL (0.2-1.3); Blood Urea Nitrogen 8 mg/dL (7-17); Calcium 8.8 mg/dL (8.4-10.2); Carbon Dioxide 22 mmol/L (22-30); Chloride 105 mmol/L (98-107); Estimated Glomerular Filt Rate > 60; Glucose 119 mg/dL (65-110); Potassium 3.8 mmol/L (3.4-5.0); Sodium 133 mmol/L (137-145); Uric Acid 4.4 mg/dL (2.5-7.5)
--- NOTE | 2022-11-21 14:30 | PC.NURSE ---
Dr Gonzalez on unit, BP and labs reviewed. Orders to have patient increase procardia 60xl to twice a day. May dc home.
[2022-11-21 14:34] VITALS: BP 132/91; PULSE 80
[2022-11-21 14:35] VITALS: BP 129/80; PULSE 86
== END 2022-11-21 14:35 | disposition home or self-care (01) ==
LOC: ANHOBOP 13:20 → ANHOBPP 13:22
PROVIDERS: Visit Provider Obstetrics & Gynecology
DX: R03.0 Elevated blood-pressure reading, without diagnosis of hypertension (principal)
CPT/HCPCS: 36415; 59025; 80053; 81003; 82570; 84156; 84550; 85025; 87086; 87088; 99199

== ENCOUNTER 2022-11-25 12:51 | Outpatient (CLI) | payer OTHER, SELFPAY ==
[2022-11-25 13:39] LABS: Basophils Percent Auto 0.2 % (0.2-1.2); Eosinophils Absolute Auto 0.1 K/mm3 (0-0.3); Eosinophils Percent Auto 0.7 % (0-4.4); Hematocrit 37.3 % (37.0-47.0); Hemoglobin 12.1 g/dL (12.0-15.0); Immature Granulocyte Absolute 0.04 K/mm3 (0.00-0.031); Immature Granulocyte Percent A 0.4 % (0-0.5); Lymphocytes Absolute Auto 1.79 K/mm3 (0.9-3.2); Lymphocytes Percent Auto 18.3 % (18.3-44.2); Mean Corpuscular HGB Conc 32.4 g/dl (32-36); Mean Corpuscular Volume 83.3 fl (80-100); Mean Platelet Volume 9.6 fl (7.4-10.4); Monocytes Absolute Auto 0.9 K/mm3 (0.1-0.6); Monocytes Percent Auto 9.4 % (2.6-8.5); Platelet Count Result 290 k/mm3 (150-375); Red Blood Count 4.48 M/mm3 (4.2-5.4); Red Cell Distribution Width 13.6 % (11.5-14.5); White Blood Count 9.8 K/mm3 (4.5-10.0)
[2022-11-25 13:43] LABS: Appearance Urine Clear (Clear); Bacteria Urine Rare /hpf; Bilirubin Urine 1+ (Negative); Blood Urine Negative (Negative); Color Urine Dark Yellow (Yellow); Glucose Urine UA Negative (Negative); Ketones Urine Trace mg/dL (Negative); Leukocyte Esterase Ur Trace LEU/UL (NEGATIVE); Nitrate Urine Negative (Negative); Protein Urine Trace mg/dL (Negative); RBC Urine 0-2 /hpf (0-2); Specific Grav Ur 1.026 (1.001-1.035); Squamous Epithelial Cell Urine Few /hpf (Few); Urobilinogen Urine 0.2 mg/dL (<2.0); WBC Urine 0-5 /hpf (0-3)
[2022-11-25 13:45] VITALS: BP 115/83; PULSE 106
[2022-11-25 13:46] LABS: Add Urine Microscopic? YES; Total Protein Urine Random 6 mg/dL; Ur Ttl Prot Creatinine Ratio 0.02 mg/mg (0-0.20)
[2022-11-25 14:00] VITALS: BP 122/83; PULSE 80
[2022-11-25 14:04] LABS: Alanine Aminotransferase 15 U/L (6-35); Albumin Level 3.6 g/dL (3.5-5.1); Alkaline Phosphatase 113 U/L (38-126); Aspartate Amino Transferase 22 U/L (14-36); Blood Urea Nitrogen 8 mg/dL (7-17); Calcium 8.9 mg/dL (8.4-10.2)
[2022-11-25 14:05] LABS: Anion Gap 7 mmol/L (8-16); Bilirubin,Total 0.4 mg/dL (0.2-1.3); Carbon Dioxide 23 mmol/L (22-30); Chloride 105 mmol/L (98-107); Estimated Glomerular Filt Rate > 60; Glucose 85 mg/dL (65-110); Potassium 3.8 mmol/L (3.4-5.0); Sodium 135 mmol/L (137-145); Uric Acid 4.7 mg/dL (2.5-7.5)
[2022-11-25 14:15] VITALS: BP 118/79; PULSE 96
[2022-11-25 14:45] VITALS: PULSE 96
== END 2022-11-25 14:45 | disposition home or self-care (01) ==
LOC: ANHOBOP 12:56 → ANHLDR 13:35
PROVIDERS: Visit Provider Obstetrics & Gynecology
DX: O13.9 Gestational [pregnancy-induced] hypertension without significant proteinuria, unspecified trimester (principal); Z3A.00 Weeks of gestation of pregnancy not specified
CPT/HCPCS: 36415; 59025; 80053; 81001; 82570; 84156; 84550; 85025; 87086; 99199

== ENCOUNTER 2023-04-24 14:51 | Emergency (ER) | payer OTHER, SELFPAY ==
[2023-04-24 15:03] VITALS: BP 136/95; PULSE 92; RESP 16; TEMP 36.7; O2SAT 100
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
== END 2023-04-24 16:05 | disposition home or self-care (01) ==
PROVIDERS: Emergency Provider Nurse Practitioner; PCP Nurse Practitioner Family
DX: J01.90 Acute sinusitis, unspecified (principal); M54.50 Low back pain, unspecified; Z20.822 Contact with and (suspected) exposure to COVID-19; Z87.891 Personal history of nicotine dependence; F12.90 Cannabis use, unspecified, uncomplicated; E78.00 Pure hypercholesterolemia, unspecified; I10 Essential (primary) hypertension; E03.9 Hypothyroidism, unspecified; F31.9 Bipolar disorder, unspecified; F41.9 Anxiety disorder, unspecified
CPT/HCPCS: 87426; 87804; 99213; G0463

== ENCOUNTER 2023-05-25 10:41 | Emergency (ER) | payer OTHER, SELFPAY ==
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
[2023-05-25 11:11] LABS: Glucose Point of Care 105 mg/dl (65-105)
[2023-05-25 11:15] VITALS: BP 121/84; PULSE 86; RESP 18; TEMP 36.4; O2SAT 100
[2023-05-25] MEDS: ONDANSETRON HCL ODT 4 MG TABLET SUBLINGUAL (11:19)
[2023-05-25 11:31] VITALS: BP 121/84
[2023-05-25 11:32] VITALS: BP 113/88; BP 125/81
== END 2023-05-25 11:43 | disposition home or self-care (01) ==
PROVIDERS: Emergency Provider Nurse Practitioner Family; PCP Nurse Practitioner Family
DX: A08.4 Viral intestinal infection, unspecified (principal); Z20.822 Contact with and (suspected) exposure to COVID-19; Z87.891 Personal history of nicotine dependence; F12.90 Cannabis use, unspecified, uncomplicated; E06.3 Autoimmune thyroiditis; E78.00 Pure hypercholesterolemia, unspecified; I10 Essential (primary) hypertension; E03.9 Hypothyroidism, unspecified
CPT/HCPCS: 82948; 87426; 87804; 99213; A9270; G0463

== ENCOUNTER 2023-06-11 13:13 | Emergency (ER) | payer OTHER, SELFPAY ==
[2023-06-11 13:25] VITALS: BP 123/85; PULSE 83; RESP 16; TEMP 37; O2SAT 99
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
== END 2023-06-11 14:18 | disposition home or self-care (01) ==
PROVIDERS: Emergency Provider Nurse Practitioner Family; PCP Nurse Practitioner Family
DX: A08.4 Viral intestinal infection, unspecified (principal); Z20.822 Contact with and (suspected) exposure to COVID-19; Z87.891 Personal history of nicotine dependence; E06.3 Autoimmune thyroiditis; E78.00 Pure hypercholesterolemia, unspecified; I10 Essential (primary) hypertension; E03.9 Hypothyroidism, unspecified; F12.90 Cannabis use, unspecified, uncomplicated; F41.9 Anxiety disorder, unspecified; F32.A Depression, unspecified
CPT/HCPCS: 87426; 87804; 99213; G0463

== ENCOUNTER 2023-09-06 08:11 | Emergency (ER) | payer OTHER, SELFPAY ==
[2023-09-06 08:29] VITALS: BP 114/70; PULSE 109; RESP 16; TEMP 36.5; O2SAT 99
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
[2023-09-06 09:55] LABS: EDINFLUASCREEN Negative; EDINFLUBSCREEN Negative
== END 2023-09-06 09:05 | disposition home or self-care (01) ==
PROVIDERS: Emergency Provider Nurse Practitioner Family; PCP Nurse Practitioner Family
DX: J06.9 Acute upper respiratory infection, unspecified (principal); Z20.822 Contact with and (suspected) exposure to COVID-19; Z87.891 Personal history of nicotine dependence; F12.90 Cannabis use, unspecified, uncomplicated; E06.3 Autoimmune thyroiditis; E78.00 Pure hypercholesterolemia, unspecified; I10 Essential (primary) hypertension; E03.9 Hypothyroidism, unspecified; F41.9 Anxiety disorder, unspecified; F31.9 Bipolar disorder, unspecified
CPT/HCPCS: 87081; 87426; 87804; 87880; 99213; G0463

== ENCOUNTER 2023-10-19 12:25 | Outpatient (CLI) | payer OTHER, SELFPAY | END 2023-10-19 12:26 | disposition home or self-care (01) | PROVIDERS: PCP Nurse Practitioner Family; Visit Provider Internal Medicine Endocrinology, Diabetes & Metabolism | DX: E03.8 Other specified hypothyroidism (principal); E06.3 Autoimmune thyroiditis | CPT/HCPCS: 36415; 84443 ==

== ENCOUNTER 2024-02-24 12:48 | Emergency (ER) | payer OTHER, SELFPAY ==
[2024-02-24 13:05] VITALS: BP 122/72; PULSE 120; RESP 16; TEMP 36.2; O2SAT 100
[2024-02-24 13:36] LABS: EDCOVIDSCREEN Negative (Negative); EDINFLUASCREEN Negative (Negative); EDINFLUBSCREEN Negative (Negative); EDSTREPNEGPOS1 Negative (Negative)
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
== END 2024-02-24 14:05 | disposition home or self-care (01) ==
PROVIDERS: Emergency Provider Nurse Practitioner; PCP Nurse Practitioner Family
DX: J06.9 Acute upper respiratory infection, unspecified (principal); E03.9 Hypothyroidism, unspecified; I10 Essential (primary) hypertension; Z79.899 Other long term (current) drug therapy; Z79.84 Long term (current) use of oral hypoglycemic drugs; Z20.822 Contact with and (suspected) exposure to COVID-19
CPT/HCPCS: 87081; 87426; 87804; 87880; 99213; G0463

== ENCOUNTER 2024-04-22 08:03 | Emergency (ER) | payer OTHER, SELFPAY ==
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
[2024-04-22 08:40] VITALS: PULSE 88; RESP 18; O2SAT 97
[2024-04-22 08:42] VITALS: BP 120/67; PULSE 88; RESP 18; TEMP 37; O2SAT 97
[2024-04-22 09:06] LABS: EDCOVIDSCREEN Negative (Negative); EDINFLUASCREEN Negative (Negative); EDINFLUBSCREEN Negative (Negative); EDSTREPNEGPOS1 Positive (Negative)
== END 2024-04-22 09:10 | disposition home or self-care (01) ==
PROVIDERS: Emergency Provider Nurse Practitioner; PCP Nurse Practitioner Family
DX: J02.0 Streptococcal pharyngitis (principal); I10 Essential (primary) hypertension; E03.9 Hypothyroidism, unspecified; Z87.891 Personal history of nicotine dependence; Z79.899 Other long term (current) drug therapy; Z20.822 Contact with and (suspected) exposure to COVID-19
CPT/HCPCS: 87426; 87804; 87880; 99213; G0463

== ENCOUNTER 2024-05-27 09:44 | Emergency (ER) | payer OTHER, SELFPAY ==
[2024-05-27 09:53] VITALS: BP 124/90; PULSE 72; RESP 16; TEMP 35.6; O2SAT 100
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
[2024-05-27 10:19] LABS: EDSTREPNEGPOS1 Positive (Negative)
== END 2024-05-27 10:21 | disposition home or self-care (01) ==
PROVIDERS: Emergency Provider Nurse Practitioner Family; PCP Internal Medicine
DX: J02.0 Streptococcal pharyngitis (principal); H69.92 Unspecified Eustachian tube disorder, left ear; Z87.891 Personal history of nicotine dependence; F12.90 Cannabis use, unspecified, uncomplicated; I10 Essential (primary) hypertension; E78.00 Pure hypercholesterolemia, unspecified; E03.9 Hypothyroidism, unspecified; E06.3 Autoimmune thyroiditis; F41.9 Anxiety disorder, unspecified; F32.A Depression, unspecified
CPT/HCPCS: 87880; 99213; G0463

== ENCOUNTER 2025-02-26 08:36 | Outpatient (CLI) | payer MEDICARE, MEDICAID, SELFPAY ==
--- OUTSIDE RECORDS SUMMARY | 2023-12-15 13:30 | XMS_ITS ---
Author Organization [facility] Address [address] [place], [place] [id number] Phone [phone] Care Team Providers Care Retail Advisor Name Role Phone Patrick Puente Primary Care Provider [phone] Jeremy SHOOK, Soraya Valentin [phone] REASON FOR VISIT establish care jhonatan Social History Sex Observation Social History Observation Description Sex Observation Female Encounters Date Time Type Facility Location Provider Diagnosis 12/15/2023 01:30 PM Office Visit [facility] Luna [address] [place] [address] Soraya Luna Plan Of Treatment No Information Medical (General) History Medical History History ICD Code hypertension HASHIMOTOS PREDIABETES bipolar, anxiety, ADD, depression 1 , 2 TAb, 1 Sab HSV genital Progress Notes * Cipriano RENOaDOB:[birth year] (29 yo F)Acc No.[id number]:12/15/2023 Progress Notes Patient: Cris Reno Provider: Soraya Luna MD :1995 Age:28 Y Sex:Female Date:12/15/2023 Address:[address] [place] [id number] Pcp:Patrick Puente Subjective: * Chief Complaints: * Establish care jhonatan * Electronic signature of Gustavo Luna MD on 02/26/2025 at 09:03 AM TEST PREPARATION TUTOR Sign off status: Pending * Provider: Soraya Luna MD Date: 12/15/2023 Generated for Job guzman/Maribel/Michael on: 02/26/2025 09:03 AM TEST PREPARATION TUTOR
--- OUTSIDE RECORDS SUMMARY | 2023-12-15 14:15 | XMS_ITS ---
Author Organization [facility] Address [address] [place], [place] [id number] Phone [phone] Care Team Providers Care Dry Mill Operator Name Role Phone Patrick Puente Primary Care Provider REASON FOR VISIT establish care jhonatan Social History Sex Observation Social History Observation Description Sex Observation Female Encounters Date Time Type Facility Location Provider Diagnosis 12/15/2023 02:15 PM Office Visit [address] [address] Patrick Puente Plan Of Treatment No Information Medical (General) History Medical History History ICD Code hypertension HASHIMOTOS PREDIABETES bipolar, anxiety, ADD, depression 1 , 2 TAb, 1 Sab HSV genital Progress Notes * Cipriano RENOaDOB:[birth year] (29 yo F)Acc No.[id number]:12/15/2023 Progress Notes Patient: Cris Reno Provider: Patrick Puente MD :1995 Age:28 Y Sex:Female Date:12/15/2023 Address:[address] [place], [place] [id number] Subjective: * Chief Complaints: * Establish care jhonatan * Electronic signature of Lenny Puente on 02/26/2025 at 09:02 AM DIRECTOR UNIVERSITY Sign off status: Pending * Provider: Patrick Puente MD Date: 12/15/2023 Generated for Job guzman/Maribel/eTransmitting on: 02/26/2025 09:02 AM DIRECTOR UNIVERSITY
--- OUTSIDE RECORDS SUMMARY | 2023-12-21 11:10 | XMS_ITS ---
Author Organization [facility] Address [address] [place], [place] [id number] Phone [phone] Care Team Providers Care Professor Of Biological Sciences Name Role Phone Patrick Puente Primary Care Provider [phone] Jeremy SHOOK, Soraya Valentin [phone] REASON FOR VISIT establish care Social History Sex Observation Social History Observation Description Sex Observation Female Encounters Date Time Type Facility Location Provider Diagnosis 12/21/2023 11:10 AM Office Visit [facility] Luna [address] [place] [address] Soraya Luna Plan Of Treatment No Information Medical (General) History Medical History History ICD Code hypertension HASHIMOTOS PREDIABETES bipolar, anxiety, ADD, depression 1 , 2 TAb, 1 Sab HSV genital History and Physical Notes * HPI (History of Present Illness) Category c/o Denies Symptom Duration Details Notes Catego ry Notes Migrated HPI Interval Hx : 28 yo female comes in to establish care in management of hypothyroidism Progress Notes * Cipriano RENOaDOB:[birth year] (29 yo F)Acc No.[id number]:12/21/2023 Progress Notes Patient: Cris Reno Provider: Soraya Luna MD :1995 Age:28 Y Sex:Female Date:12/21/2023 Address:[address] [place] [address] [place] [phone] Pcp:Patrick Puente Subjective: * Chief Complaints: * Establish care * HPI: Migrated HPI: Interval Hx : 28 yo female comes in to establish care in management of hypothyroidism. * Electronic signature of Gustavo Luna MD on 02/26/2025 at 09:02 AM ASSET PROTECTION LEAD Sign off status: Pending * Provider: Soraya Luna MD Date: 12/21/2023 Generated for Job guzman/Maribel/Natanaelitting on: 02/26/2025 09:02 AM ASSET PROTECTION LEAD
--- OUTSIDE RECORDS SUMMARY | 2024-01-22 21:00 | XMS_ITS ---
Author Organization [facility] [address] [id number] Phone [phone] Care Team Providers Care Camera Systems Engineer Name Role Phone Patrick Puente Primary Care Provider [phone] Migration, Provider Unavailable Unavailable REASON FOR VISIT [facility] Conversion Encounter Medications Medication SIG (Take, Route, Frequency, Duration) Notes Start Date End Date Diagnosis (ICD Code) Status Lisinopril 10 MG Tablet 1 tab(s) orally once a day Active amLODIPine Besylate 10 MG Tablet 1 tab(s) orally once a day Active metFORMIN HCl 500 MG Tablet 1 tab(s) orally 2 times a day Active Vibramycin HYCLATE 100 MG CAPSULE 1 CAP(S) ORALLY 2 TIMES A DAY; Duration: 10 DAYS *Please review and pick correct strength-formul [facility]ion from [facility] options. If intended option is not shown, discontinue and re-order from Quick Search* *Reorder from [facility] for eRx and Interaction Alerts* 4 Active metroNIDAZOLE 500 MG Tablet 1 tab(s) orally TWICE DAILY; Duration: 7 days 4 Active Trulicity 0.75 MG/0.5 ML SOLUTION DIRECTED SUBCUTANEOUSLY ONCE A WEEK *Please review and pick correct strength-formul ation from [facility] options. If intended option is not shown, discontinue and re-order from Quick Search* *Pick strength-form from [facility] for eRX* Active Effexor XR 150 MG Capsule Extended Release 24 Hour 1 cap(s) orally once a day Active Effexor XR 75 MG Capsule Extended Release 24 Hour 1 cap(s) orally once a day Active Latuda 120 MG Tablet 1 tab(s) orally once a day Active Trileptal 300 MG Tablet 1 tab(s) orally 2 times a day Active Tirosint 100 MCG (0.1 MG) CAPSULE 1 CAP(S) ORALLY ONCE A DAY *Please review and pick correct strength-formul ation from [facility] options. If intended option is not shown, discontinue and re-order from Quick Search* *Pick strength-form from [facility] for eRX* Active Social History Sex Observation Social History Observation Description Sex Observation Female Encounters Date Time Type Facility Location Provider Diagnosis 01/22/2024 09:00 PM Office Visit [address] [id number] Provider Migration Plan Of Treatment Medication Medication Name Sig Start Date Stop Date Notes Vibramycin HYCLATE 100 MG CAPSULE 1 CAP(S) ORALLY 2 TIMES A DAY; Duration: 10 DAYS 12/24/2023 *Please review and pick correct strength-formulation from [facility] options. If intended option is not shown, discontinue and re-order from Quick Search* *Reorder from [facility] for eRx and Interaction Alerts* metroNIDAZOLE 500 MG Tablet 1 tab(s) orally TWICE DAILY; Duration: 7 days 12/24/2023 Medical (General) History Medical History History ICD Code hypertension HASHIMOTOS PREDIABETES bipolar, anxiety, ADD, depression 1 , 2 TAb, 1 Sab HSV genital Progress Notes * Cipriano PEREZaDOB:[birth year] (29 yo F)Acc No.[id number]:01/22/2024 Patient: Cris Perez Provider: Provider Migration :1995 Age:28 Y Sex:Female Date:01/22/2024 Address:[address] [place], [place] [id number] Pcp:Patrick Puente Subjective: * Chief Complaints: * [facility] Conversion Encounter * Medications: TakingTirosint 100 MCG (0.1 MG) CAPSULE 1 CAP(S) ORALLY ONCE A DAY , Notes to Pharmacist: *Please review and pick correct strength-formulation from [facility] options. If intended option is not shown, discontinue and re-order from Quick Search* *[facility] from [facility] for eRX*Tirosint 100 MCG (0.1 MG) CAPSULE 1 CAP(S) ORALLY ONCE A DAY , Notes to Pharmacist: *Please review and pick correct strength-formulation from [facility] options. If intended option is not shown, discontinue and re-order from Quick Search* *[facility]*[id number] 300 MG Tablet 1 tab(s) orally 2 times a day Trileptal 300 MG Tablet 1 tab(s) orally 2 times a day [id number] 120 MG Tablet 1 tab(s) orally once a day Latuda 120 MG Tablet 1 tab(s) orally once a day [id number] XR 75 MG Capsule Extended Release 24 Hour 1 cap(s) orally once a day Effexor XR 75 MG Capsule Extended Release 24 Hour 1 cap(s) orally once a day [id number] XR 150 MG Capsule Extended Release 24 Hour 1 cap(s) orally once a day Effexor XR 150 MG Capsule Extended Release 24 Hour 1 cap(s) orally once a day [id number] 0.75 MG/0.5 ML SOLUTION DIRECTED SUBCUTANEOUSLY ONCE A WEEK , Notes to Pharmacist: *Please review and pick correct strength-formulation from [facility] options. If intended option is not shown, discontinue and re-order from Quick Search* *Pick strength-form from [facility] for eRX*Trulicity 0.75 MG/0.5 ML SOLUTION DIRECTED SUBCUTANEOUSLY ONCE A WEEK , Notes to Pharmacist: *Please review and pick correct strength-formulation from [facility] options. If intended option is not shown, discontinue and re-order from Quick Search* *[facility]*[id number] HCl 500 MG Tablet 1 tab(s) orally 2 times a day metFORMIN HCl 500 MG Tablet 1 tab(s) orally 2 times a day [id number] Besylate 10 MG Tablet 1 tab(s) orally once a day amLODIPine Besylate 10 MG Tablet 1 tab(s) orally once a day [id number] 10 MG Tablet 1 tab(s) orally once a day Lisinopril 10 MG Tablet 1 tab(s) orally once a day [id number] Tirosint 100 MCG (0.1 MG) CAPSULE 1 CAP(S) ORALLY ONCE A DAY , Notes to Pharmacist: *Please review and pick correct strength-formulation from [facility] options. If intended option is not shown, discontinue and re-order from Quick Search* *Pick strength- form from [facility] for eRX*Taking Trileptal 300 MG Tablet 1 tab(s) orally 2 times a day Taking Latuda 120 MG Tablet 1 tab(s) orally once a day Taking Effexor XR 75 MG Capsule Extended Release 24 Hour 1 cap(s) orally once a day Taking Effexor XR 150 MG Capsule Extended Release 24 Hour 1 cap(s) orally once a day Taking Trulicity 0.75 MG/0.5 ML SOLUTION DIRECTED SUBCUTANEOUSLY ONCE A WEEK , Notes to Pharmacist: *Please review and pick correct strength-formulation from [facility] options. If intended option is not shown, discontinue and re-order from Quick Search* *Pick strength-form from [facility] for eRX*Taking metFORMIN HCl 500 MG Tablet 1 tab(s) orally 2 times a day Taking amLODIPine Besylate 10 MG Tablet 1 tab(s) orally once a day Taking Lisinopril 10 MG Tablet 1 tab(s) orally once a day Plan: * Treatment: * Electronic signature of Prov ider Migration on 02/26/2025 at 09:02 AM CUSTOMER CARE REPRESENTATIVE Sign off status: Pending * Provider: Provider Migration Date: 01/22/2024 Generated for Job guzman/Maribel/Michael on: 02/26/2025 09:02 AM CUSTOMER CARE REPRESENTATIVE
--- OUTSIDE RECORDS SUMMARY | 2025-02-08 11:00 | XMS_ITS ---
Author Organization [facility] Address [address] [place] [address] Phone [phone] Care Team Providers Care Drama Teacher Name Role Phone Skyler Gilliam Primary Care Provider Servando Jayne Unavailable [phone] REASON FOR VISIT blood draw Social History Sex Observation Social History Observation Description Sex Observation Female Sexual Orientation Social History Observation Description Sexual Orientation Straight or heterose xual Gender Identity Social History Observation Description Gender Identity Female Encounters Date Time Type Facility Location Provider Diagnosis 02/08/2025 11:00 AM Office Visit [address] [place] [address] Skyelr Gilliam Plan Of Treatment No Information Medical (General) History Medical History History ICD Code Hashimotos Prediabetic Anxiety Dissociative identity Disorder Depression Hx of Methamphetamine use disorder Hx of abusing rx pills Manic Bipolar disorder Surgical History Surgery Date(Month/Year) Dilation & Currettage section Hospitalization History Reason Date(Month/Year) [facility] 07/30/22-08/02/22 childbirth 2016 Progress Notes * Cris RENO DDOB:1995 (29 yo F)Acc No.[id number]:02/08/2025 UNLOCKED PROGRESS NOTE Patient: Cris KRISHNAMURTHY Provider: Rogeilo Gilliam :1995 A ge:29 Y S ex:Female Date:02/08/2025 Address:[address] [place] [address] , [id number] Check In:11:04 AM CSTCheck O ut:11:43 AM 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 Blood draw. * Screening: * * Medical History: Objective: * Vitals: Assessment: Plan: * Treatment: * * Electronic signature of Macho Gilliam , [id number] on 02/26/2025 at 09:03 AM CUT OFF SAW SET UP OPERATOR Sign off status: Pending * Provider: Rogelio Gilliam Date: 04/11/2024 Generated for Job guzman/Maribel/Michael on: 04/29/2024 09:03 AM CUT OFF SAW SET UP OPERATOR
--- OUTSIDE RECORDS SUMMARY | 2025-02-13 13:40 | XMS_ITS ---
Author Organization [facility] Address [address] [place] [address] Phone [phone] Care Team Providers Care Core Shaper Sides Name Role Phone Skyler Gilliam Primary Care Provider Jayne Al Unavailable REASON FOR VISIT last appt 11/2024 3month follow up Social History Sex Observation Social History Observation Description Sex Observation Female Sexual Orientation Social History Observation Description Sexual Orientation Straight or heterose xual Gender Identity Social History Observation Description Gender Identity Female Encounters Date Time Type Facility Location Provider Diagnosis 02/13/2025 01:40 PM Office Visit [address] [place] [address] Skyler Gilliam Plan Of Treatment No Information Medical (General) History Medical History History ICD Code Hashimotos Prediabetic Anxiety Dissociative identity Disorder Depression Hx of Methamphetamine use disorder Hx of abusing rx pills Manic Bipolar disorder Surgical History Surgery Date(Month/Year) Dilation & Currettage section Hospitalization History Reason Date(Month/Year) [facility] 07/30/22-08/02/22 childbirth 2016 Progress Notes * Cris RENO DDOB:1995 (29 yo F)Acc No.[id number]:02/13/2025 UNLOCKED PROGRESS NOTE Progress Notes Patient: Cris KRISHNAMURTHY Provider: Rogelio Gilliam :1995 A ge:29 Y S ex:Female Date:02/13/2025 Address:[address] [place] [address] , [id number] Subjective: * Chief Complaints: * 1 . Last appt 11/2024 3month follow up. * Screening: * * Medical History: Objective: * Vitals: Assessment: Plan: * Treatment: * * Electronic signature of Macho Gilliam , [id number] on 02/26/2025 at 09:03 AM CATERING STAFF MEMBER Sign off status: Pending * Provider: Rogelio Gilliam Date: 04/16/2024 Generated for Job guzman/Maribel/Michael on: 04/29/2024 09:03 AM CATERING STAFF MEMBER
--- OUTSIDE RECORDS SUMMARY | 2025-02-23 15:20 | XMS_ITS ---
Author Organization [facility] Address [address] [place] [address] Phone [phone] Care Team Providers Care Senior Manager [employer] Name Role Phone Skyler Gilliam Primary Care Provider AlJayne Unavailable REASON FOR VISIT regarding labs Social History Sex Observation Social History Observation Description Sex Observation Female Sexual Orientation Social History Observation Description Sexual Orientation Straight or heterose xual Gender Identity Social History Observation Description Gender Identity Female Encounters Date Time Type Facility Location Provider Diagnosis 02/23/2025 03:20 PM Telephone Encounter [address] [place] [address] Skyler Gilliam Plan Of Treatment No Information Medical (General) History Medical History History ICD Code Hashimotos Prediabetic Anxiety Dissociative identity Disorder Depression Hx of Methamphetamine use disorder Hx of abusing rx pills Manic Bipolar disorder Surgical History Surgery Date(Month/Year) Dilation & Currettage section Hospitalization History Reason Date(Month/Year) [facility] 07/30/22-08/02/22 childbirth 2016 Progress Notes * Cris RENO DDOB:1995 (29 yo F)Acc No.[id number]:02/23/2025 UNLOCKED PROGRESS NOTE Patient: Cris KRISHNAMURTHY :1995 A ge:29 Y S ex:Female Address:[address] [place] [address] , [place], [address] Subjective: * Chief Complaints: * R egarding labs * Medical History: * Surgical History: * Hospitalization/Major Diagno stic Procedure: * Medications: Objective: * Vitals: * Physical Examination: Assessment: Plan: * Treatment: * Procedure Codes: * * Date:
--- OUTSIDE RECORDS SUMMARY | 2025-02-26 09:02 | XMS_ITS | Patient Health Record ---
Author Organization [facility] Address [address] [facility] ACACIA Gloria [id number] Phone [phone] Care Team Providers Care Pasting Machine Offbearer Name Role Phone Patrick Puente Primary Care Provider Allergies No Known Allergies Reason For Referral No Information Medications Medication SIG (Take, Route, Frequency, Duration) Notes Start Date End Date Diagnosis (ICD Code) Status Lisinopril 10 MG Tablet 1 tab(s) orally once a day Active amLODIPine Besylate 10 MG Tablet 1 tab(s) orally once a day Active metFORMIN HCl 500 MG Tablet 1 tab(s) orally 2 times a day Active Trulicity 0.75 MG/0.5 ML SOLUTION DIRECTED SUBCUTANEOUSLY ONCE A WEEK *Please review and pick correct strength-formul ation from [employer] options. If intended option is not shown, discontinue and re-order from Quick Search* *Pick strength-form from [employer] for eRX* Active Effexor XR 150 MG [...] review and pick correct strength-formul ation from [employer] options. If intended option is not shown, discontinue and re-order from Quick Search* *Pick strength-form from [employer] for eRX* Active Vibramycin HYCLATE 100 MG CAPSULE 1 CAP(S) ORALLY 2 TIMES A DAY; Duration: 10 DAYS *Please review and pick correct strength-formul ation from [employer] options. If intended option is not shown, discontinue and re-order from Quick Search* *Reorder from [employer] for eRx and Interaction Alerts* 4 Active metroNIDAZOLE 500 MG Tablet 1 tab(s) orally TWICE DAILY; Duration: 7 days 4 Active Social History Sex Observation Social History Observation Description Sex Observation Female Problems Problem Type SNOMED Code ICD Code Dates Problem Status W/U Status Risk Notes Problem Genital herpes simplex (14928636) Herpesviral infection of urogenital system, unspecified (A60.00) Added On:12/20 Active confirmed Problem Hypothyroidism (80662553) Hypothyroidism, unspecified (E03.9) Added On:12/20 Active confirmed Problem Bipolar affective disorder, currently depressed, mild (680465858) Bipolar disorder, current episode depressed, mild (F31.31) Added On:12/20 Active confirmed Problem Essential hypertension (23005062) Essential (primary) hypertension (I10) Added On:12/20 Active confirmed Problem Human papilloma virus deoxyribonucleic acid test positive, high 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 vaginal specimen (925820449940366) Cervical high risk human papillomavirus (HPV) DNA test positive (R87.810) Added On:12/20 Active confirmed Problem Depression (082079884) Depression, Unspecified (F32.A) Added On:12/20 Active confirmed Encounters Date Time Type Facility Location Provider Diagnosis 04/14/2024 01:49 PM Telephone Encounter [id number] [place] [address] [facility] Plan Of Treatment Pending Test Test Name Order Date US TRANSVAGINAL 12/21/2023 Medical (General) History Medical History History ICD Code hypertension HASHIMOTOS PREDIABETES bipolar, anxiety, ADD, depression 1 , 2 TAb, 1 Sab HSV genital
--- OUTSIDE RECORDS SUMMARY | 2025-02-26 09:02 | XMS_ITS | Clinical Summary ---
Author Organization [facility] Address [address] [place] [address] Phone Care Team Providers Care Munitions Factory Worker Name Role Phone HAYDEN PANCHAL M.D. Primary Care Provider [phone] Reason for Visit and Chief Complaint NO SHOW Problems Includes: Problems addressed during this encounter and other active Problems All Visits Onset Date Resolved Date Provider Condition S tatus Assessment of Previous Colposcopy 07/13/2020 HAYDEN PANCHAL MD Active Last Documented On 1 8:05PM ; [facility] Obesity 07/13/2020 HAYDEN PANCHAL MD Acti ve Last Documented On 1 8:04PM ; [facility] Screening For Unspecified Condition 07/13/2020 HAYDEN PANCHAL MD Active Last Documented On 1 8:04PM ; [facility] Previous Colposcopy 11/06/2019 RAJENDRA MATHIAS VITAMIN MANAGER-BC Active Last Documented On 11/06/2019 8:28AM ; [facility] Note: [facility] Herpes Simplex 11/06/2019 RAJENDRA MATHIAS NP-BC Active Last Documented On 11/06/2019 8:28AM ; [facility] Note: + type II blood titers at outside clinic Bipolar Disorder Nos 11/01/2019 HAYDEN ROSS MD Active Last Documented On 0 3:18PM ; [facility] Borderline Personality Disorder 11/01/2019 HAYDEN PANCHAL MD Active Last Documented On 11/01/2019 3:19PM ; [facility] Note: reported by patient as diagnosis rashad vasquez her by her therapist at [place] in [place]. Zabrina Thyroiditis (Chronic Lymphocytic) 11/01/2019 HAYDEN PANCHAL MD Activ e Last Documented On 0 3:23PM ; [facility] Dysmenorrhea 11/01/2019 HAYDEN PANCHAL MD Ac tive Last Documented On 0 3:19PM ; [facility] Post-traumatic Stress Disorder 11/01/2019 HAYDEN PANCHAL MD Active Last Documented On 0 3:18PM ; [facility] Plan of Treatment No Plan of Treatment Recorded Assessments Includes: Assessments from this encounter No Assessments Recorded Medical Equipment - Implanted Devices Includes: Current Devices No Medical Equipment Recorded Medications Includes: Medications discussed during this encounter and other current Medications Current Medications (continue as prescribed) Topiramate 100 MG Oral Tablet 10/10/2020 Provider: HAYDEN PANCHAL MD Diagnosis: Obesity, unspeci fied TAKE 1 TABLET BY MOUTH TWICE DAILY Last Documented On 1 12:41PM By HAYDEN PANCHAL MD ; [facility] [place] Thyroid 60 MG Oral Tablet 10/10/2020 Provider: HAYDEN PANCHAL MD Diagnosis: Autoimmune thyro iditis one daily Last Documented On 1 12:41PM By HAYDEN PANCHAL MD ; [facility] Acyclovir 800 MG Oral Tablet 10/10/2020 Provider: HAYDEN PANCHAL MD Diagnosis: One tablet daily Last Documented On 12:41PM By HAYDEN PANCHAL MD ; [facility] Acyclovir 800 MG Oral Tablet 07/10/2020 Provider: RAJENDRA BUENO Diagnosis: One tablet twice a day Last Documented On 1 9:35AM By RAJENDRA BUENO ; [facility] Abilify 10 MG Oral Tablet 07/09/2020 Provider: Diagnosis: Last Documented On 07/09/2020 1:57PM By Carmita SINGH ; [facility] Topiramate 50 MG Oral Tablet 06/02/2020 Provider: HAYDEN PANCHAL MD Diagnosis: Overweight TAKE 1 TABLET BY MOUTH TWICE DAILY Last Documented On 06/02/2020 9:05AM By HAYDEN PANCHAL MD ; [facility] Flagyl 500 MG Oral Tablet 05/08/2020 Provider: [facility] Diagnosis: One tablet twice a day Last Documented On 1 3:41PM By RAJENDRA MATHIAS VELIA ; [facility] Abilify 5 MG Oral Tablet 05/08/2020 Provider: Diagnosis: Last Documented On 05/08/2020 3:25PM By Racquel Rider MA ; [facility] Zoloft 50 MG Oral Tablet 11/01/2019 Provider: Diagnosis: Last Documented On 0 1:55PM By YANIRA SINGH ; [facility] Paragard Intrauterine Copper Intrauterine device 11/16 Provider: Diagnosis: Last Documented On 11/06/2019 8:42AM By ROBERTO SINGH ; [facility] Medications Administered Includes: Administered Medications from this encounter No Administered Medications Recorded Results Includes: Results discussed during this encounter No Results Recorded For Specified Dates History of Present Illness Includes: History of Present Illness from this encounter No History of Present Illness Recorded Social History No Social History Recorded - Smoking Status Unknown Medical History Includes: Medical History addressed during this encounter No Medical History Recorded Family History Includes: Family History addressed during this encounter No Family History Recorded Review of Systems Includes: Review of Systems from this encounter No Review of Systems Recorded Mental Status Includes: Mental Status from this encounter No Mental Status Recorded Functional Status Includes: Functional Status from this encounter No Functional Status Recorded Physical Exam Includes: Physical Exam from this encounter No Physical Exam Recorded Allergies Includes: Active Allergies No Known Allergies Encounters Encounter Provider Location Date Check-In Time Check-Out Time Diagnosis NO SHOW RAJENDRA BUENO [facility] 06/30/2021 12:27PM 11:59PM Insurance Includes: Active Insurance Policies Plan Name Member ID Group # Subscriber Relationship Effect akbar Dates 1 - [facility] [id number] LUZ Fox Clinical Notes Includes: Clinical Notes from this encounter No Clinical Notes Recorded
--- OUTSIDE RECORDS SUMMARY | 2025-02-26 09:02 | XMS_ITS | Clinical Summary ---
Author Organization [facility] Address [address] [place] [address] Phone Care Team Providers Care Board Mill Supervisor Name Role Phone Catina Garcia MD Primary Care Provider [phone] Allergies No known active allergies Medications thyroid (Roxana Thyroid) 15 MG TabletIndicatio ns:afternoon Take 45 mg by mouth See Admin Instructions. Indications: afternoon Active thyroid (Roxana Thyroid) 15 MG TabletIndicatio ns:morning Take 75 mg by mouth See Admin Instructions. Indications: morning Active ARIPiprazole (Abilify) 10 MG Tablet Take 10 mg by mouth daily. Active sertraline (Zoloft) 100 MG Tablet Take 100 mg by mouth daily. Active metFORMIN (GLUCOPHAGE) 500 MG Tablet Take 500 mg by mouth daily. Active Social History Tobacco Use Types Packs/Day Years Used Date Smoking Tobacco: Every Day Cigarettes Alcohol Use Standard Drinks/Week Comments Not Currently 0 (1 standard drink = 0.6 oz pur e alcohol) Comments Unknown Sex and Gender Information Value Date Recorded Sex Assigned at Not on file Legal Sex Female 5:15 PM CDT Gender Identity Not on file Sexual Orientation Not on file Last Filed Vital Signs Vital Sign Reading Time Taken Comments Blood Pressure 128/82 09/13/2020 7:12 PM CDT Pulse 89 09/13/2020 7:12 PM CDT Temperature 36.7 C (98.1 F) 09/13/2020 5:22 PM CDT Respiratory Rate 16 09/13/2020 7:12 PM CDT Oxygen Saturation 99% 09/13/2020 7:12 PM CDT Inhaled Oxygen Concentration - - Weight 90.7 kg (200 lb) 09/13/2020 5:22 PM CDT Height 165.1 cm (5' 5) 09/13/2020 5:22 PM CDT Body Mass Index 33.28 09/13/2020 5:22 PM CDT Plan of Treatment Health Maintenance Due Date Last Done Comments Hepatitis C Virus (HCV) Screening 1994 TdaP Immunization 1994 Hepatitis B Immunization (2 of 3 - 3-dose series) 02/16/1996 01/19/1996 Varicella Immunization (1 of 2 - 13+ 2-dose series) 06/26/2007 Pap Smear 06/26/2015 Cervical Cancer Screening (CCS) 2024 HPV/Cotest 2024 Influenza Immunization (#1) 2024 SARS-COV-2 Immunization ( season) 2024 08/14/2021, 10/07/2020, 09/09/2020 Respiratory Syncytial Virus (RSV) Immunization (Adult) (1 - 1-dose 75+ series) 2069 DTaP/Tdap/Td Immunization Discontinued 01/19/1996 Human Papillomavirus (HPV) Immunization (No Doses Required) Completed Meningococcal Immunization (ACWY) Aged Out No longer eligible based on patient's age to complete this topic Pneumococcal Immunization Combined Aged Out No longer eligible based on patient's age to complete this topic Rotavirus Immunization Aged Out No lo nger eligible based on patient's age to complete this topic Insurance MEDICAID [place] [address] [id number] Care Teams Board Mill Supervisor Relationship Specialty Start Date End Date Catina Garcia MD PCP - General Family Medicine 09/13/20
--- OUTSIDE RECORDS SUMMARY | 2025-02-26 09:02 | XMS_ITS | Clinical Summary ---
Author Organization [facility] Address [address] [place] [address] Phone Care Team Providers Care Motor Expert Name Role Phone HAYDEN PANCHAL M.D. Primary Care Provider [phone] Reason for Visit and Chief Complaint NO SHOW Problems Includes: Problems addressed during this encounter and other active Problems All Visits Onset Date Resolved Date Provider Condition S tatus Assessment of Previous Colposcopy 07/13/2020 HAYDEN PANCHAL MD Active Last Documented On 1 8:05PM ; [facility] Obesity 07/13/2020 HAYDEN PANCHAL MD Acti ve Last Documented On 1 8:04PM ; [facility] Screening For Unspecified Condition 07/13/2020 HAYDEN PANCHAL MD Active Last Documented On 1 8:04PM ; [facility] Previous Colposcopy 11/06/2019 RAJENDRA MATHIAS MANAGER OF BROADCAST CONTENT-BC Active Last Documented On 11/06/2019 8:28AM ; [facility] Note: [facility] Herpes Simplex 11/06/2019 RAJENDRA MATHIAS NP-BC Active Last Documented On 11/06/2019 8:28AM ; [facility] Note: + type II blood titers at outside clinic Bipolar Disorder Nos 11/01/2019 HAYDEN ROSS MD Active Last Documented On 0 3:18PM ; [facility] Borderline Personality Disorder 11/01/2019 HAYDEN PANCHAL MD Active Last Documented On 11/01/2019 3:19PM ; [facility] Note: reported by patient as diagnosis rashad vasquez her by her therapist at [place] in [place]. [place]rina Thyroiditis (Chronic Lymphocytic) 11/01/2019 HAYDEN PANCHAL MD Activ e Last Documented On 0 3:23PM ; [facility] Dysmenorrhea 11/01/2019 HAYDEN PANCHAL MD Ac tive Last Documented On 0 3:19PM ; [facility] Post-traumatic Stress Disorder 11/01/2019 HAYDEN PANCHAL MD Active Last Documented On 0 3:18PM ; [facility] Plan of Treatment No [...] 1 12:41PM By HAYDEN PANCHAL MD ; [facility] [place] Thyroid 60 MG Oral Tablet 10/10/2020 Provider: HAYDEN PANCHAL MD Diagnosis: Autoimmune thyro iditis one daily Last Documented On 1 12:41PM By HAYDEN PANCHAL MD ; [facility] Acyclovir 800 MG Oral Tablet 10/10/2020 Provider: HAYDEN PANCHAL MD Diagnosis: One tablet daily Last Documented On 12:41PM By HAYDEN PANCHAL MD ; [facility] Acyclovir 800 MG Oral Tablet 07/10/2020 Provider: RAJENDRA BUENO Diagnosis: One tablet twice a day Last Documented On 1 9:35AM By RAJENDRA BUENO ; [facility] Abilify 10 MG Oral Tablet 07/09/2020 Provider: Diagnosis: Last Documented On 07/09/2020 1:57PM By Carmita SINGH ; [facility] Topiramate 50 MG Oral Tablet 06/02/2020 Provider: HAYDEN PANCHAL MD Diagnosis: Overweight TAKE 1 TABLET BY MOUTH TWICE DAILY Last Documented On 06/02/2020 9:05AM By HAYDEN PANCHAL MD ; [facility] Flagyl 500 MG Oral Tablet 05/08/2020 Provider: [facility] Diagnosis: One tablet twice a day Last Documented On 1 3:41PM By RAJENDRA MATHIAS VELIA ; [facility] Abilify 5 MG Oral Tablet 05/08/2020 Provider: Diagnosis: Last Documented On 05/08/2020 3:25PM By Racquel Rider MA ; [facility] Zoloft 50 MG Oral Tablet 11/01/2019 Provider: Diagnosis: Last Documented On 0 1:55PM By YANIRA SINGH ; [facility] Paragard Intrauterine Copper Intrauterine device 11/16 Provider: Diagnosis: Last Documented On 11/06/2019 8:42AM By ROBERTO SINGH ; [facility] Medications Administered Includes: Administered Medications from this [...] Check-Out Time Diagnosis NO SHOW RAJENDRA BUENO [facility] 04/16/2021 9:23AM 11:59PM Insurance Includes: Active Insurance Policies Plan Name Member ID Group # Subscriber Relationship Effect akbar Dates 1 - [facility] [id number] LUZ Fox Clinical Notes Includes: Clinical Notes from this encounter No Clinical Notes Recorded
--- OUTSIDE RECORDS SUMMARY | 2025-02-26 09:02 | XMS_ITS | Clinical Summary ---
Author Organization [facility] Address [address] [place] [address] Phone Care Team Providers Care Drafter Geophysical Name Role Phone HAYDEN PANCHAL M.D. Primary Care Provider [phone] Reason for Visit and Chief Complaint * PHONE CALL Problems Includes: Problems addressed during this encounter and other active Problems All Visits Onset Date Resolved Date Provider Condition S tatus Assessment of Previous Colposcopy 07/13/2020 HAYDEN PANCHAL MD Active Last Documented On 1 8:05PM ; [facility] Obesity 07/13/2020 HAYDEN PANCHAL MD Acti ve Last Documented On 1 8:04PM ; [facility] Screening For Unspecified Condition 07/13/2020 HAYDEN PANCHAL MD Active Last Documented On 1 8:04PM ; [facility] Previous Colposcopy 11/06/2019 RAJENDRA MATHIAS WREATH MACHINE OPERATOR-BC Active Last Documented On 11/06/2019 8:28AM ; [facility] Note: [facility] Herpes Simplex 11/06/2019 RAJENDRA MATHIAS NP-BC Active Last Documented On 11/06/2019 8:28AM ; [facility] Note: + type II blood titers at outside clinic Bipolar Disorder Nos 11/01/2019 HAYDEN ROSS MD Active Last Documented On 0 3:18PM ; [facility] Borderline Personality Disorder 11/01/2019 HAYDEN PANCHAL MD Active Last Documented On 11/01/2019 3:19PM ; [facility] Note: reported by patient as diagnosis rashad vasquez her by her therapist at [place] in [place]. Zabrina Thyroiditis (Chronic Lymphocytic) 11/01/2019 HAYDEN PANCHAL MD Activ e Last Documented On 0 3:23PM ; [facility] Dysmenorrhea 11/01/2019 HAYDEN PANCHAL MD Ac tive Last Documented On 0 3:19PM ; [facility] Post-traumatic Stress Disorder 11/01/2019 HAYDEN PANCHAL MD Active Last Documented On 0 3:18PM ; [facility] Plan of Treatment No [...] 1 12:41PM By HAYDEN PANCHAL MD ; [facility] [place] Thyroid 60 MG Oral Tablet 10/10/2020 Provider: HAYDEN PANCHAL MD Diagnosis: Autoimmune thyro iditis one daily Last Documented On 1 12:41PM By HAYDEN PANCHAL MD ; [facility] Acyclovir 800 MG Oral Tablet 10/10/2020 Provider: HAYDEN PANCHAL MD Diagnosis: One tablet daily Last Documented On 12:41PM By HAYDEN PANCHAL MD ; [facility] Acyclovir 800 MG Oral Tablet 07/10/2020 Provider: RAJENDRA BUENO Diagnosis: One tablet twice a day Last Documented On 1 9:35AM By RAJENDRA BUENO ; [facility] Abilify 10 MG Oral Tablet 07/09/2020 Provider: Diagnosis: Last Documented On 07/09/2020 1:57PM By Carmita SINGH ; [facility] Topiramate 50 MG Oral Tablet 06/02/2020 Provider: HAYDEN PANCHAL MD Diagnosis: Overweight TAKE 1 TABLET BY MOUTH TWICE DAILY Last Documented On 06/02/2020 9:05AM By HAYDEN PANCHAL MD ; [facility] Flagyl 500 MG Oral Tablet 05/08/2020 Provider: DOMONIQUE MATHIAS RADHA- Diagnosis: One tablet twice a day Last Documented On 1 3:41PM By RAJENDRA MATHIAS RADHA- ; [facility] Abilify 5 MG Oral Tablet 05/08/2020 Provider: Diagnosis: Last Documented On 05/08/2020 3:25PM By Racquel Rider MA ; [facility] Zoloft 50 MG Oral Tablet 11/01/2019 Provider: Diagnosis: Last Documented On 0 1:55PM By YANIRA SINGH ; [facility] Paragard Intrauterine Copper Intrauterine device 11/16 Provider: Diagnosis: Last Documented On 11/06/2019 8:42AM By ROBERTO SINGH ; [facility] Medications Administered Includes: Administered Medications from this encounter No Administered Medications Recorded Results Includes: Results discussed during this encounter No Results Recorded For Specified Dates History of Present Illness Includes: History of Present Illness from this encounter No History of Present Illness Recorded Social History No Social History Recorded - Smoking Status Unknown Procedures and Surgical History Surgical History Last Updated Dilation + Curettage 201707/10/2020 Last Documented On 2 11:05AM ; [facility] Medical History Includes: Medical History addressed during this encounter Description Last Updated Last pap smear date 04/04/2019 03/24/2021 Last Documented On 2 11:35AM ; [facility] Aborta 2 07/10/2020 Last Documented On 2 11:05AM ; [facility] Contraception: paragard 9-11-18 07/11/19 21 Last Documented On 2 11:05AM ; [facility] 4 07/10/2020 Last Documented On 2 11:05AM ; [facility] History of depression Pt is bi polar 07/2020 Last Documented On 2 11:05AM ; [facility] History of Pap smear done 2018 1 Last Documented On 2 11:05AM ; [facility] History of thyroid disorder Hoshimotos 0 07/10/2020 Last Documented On 2 11:05AM ; [facility] LMP: 04/27/2020 07/10/2020 Last Documented On 2 11:05AM ; [facility] Para 2 07/10/2020 Last Documented On 2 11:05AM ; [facility] Result: normal 07/10/2020 Last Documented On 2 11:05AM ; [facility] Sexually active 07/10/2020 Last Documented On 2 11:05AM ; [facility] Family History Includes: Family History addressed during this encounter Description Last Updated Fraternal history of diabetes mellitus 1 /2 brother 11/06/2019 Last Documented On 2 11:05AM ; [facility] Maternal history of hypertension parents 11/06/2019 Last Documented On 2 11:05AM ; [facility] Maternal history of pure hypercholestero lemia parents 11/06/2019 Last Documented On 2 11:05AM ; [facility] Review of Systems Includes: Review of Systems [...] Location Date Check-In Time Check-Out Time Diagnosis * PHONE CALL ALEXANDRE MOSLEY RN [facility] 03/24/2021 11:05AM 11:59PM Insurance Includes: Active Insurance Policies Plan Name Member ID Group # Subscriber Relationship Effect akbar Dates 1 - [facility] [id number] LUZ Fox Clinical Notes Includes: Clinical Notes from this encounter No Clinical Notes Recorded
--- OUTSIDE RECORDS SUMMARY | 2025-02-26 09:02 | XMS_ITS | Patient Health Record ---
Author Organization [facility] Address [address] [place] [address] Phone [phone] Care Team Providers Care Vice President Pharmacy Name Role Phone Skyler Gilliam Primary Care Provider [phone] Jayne Al Unavailable [phone] Lexi Renteria APRN Unavailable [phone] Rosy Hines Unavailable [phone] Lizeth Torres Unavailable [phone] Theron Dunn Unavailable [phone] Raisa Guerrero Unavailable [phone] Allergies No Known Allergies Results Component Value Reference Range Flag Notes Hemoglobin A1c CLIA Waived Order date: 02/08/2025 Reviewed date:02/08/2025 11:06:41 AM Interpretation: Performing Lab: Notes/Report: Hemoglobin A1c 5.5 4.0 - 6.4 % PDF Report Order date: 04/12/2024 Reviewed date:04/16/2024 05:55:51 PM Interpretation: Performing Lab:[facility], [place], Phone - [phone], Director - [place] Notes/Report: Clinical Information:[id number] PDF Report1 LCLS Hemoglobin A1c* Order date: 08/01/2024 Reviewed date:08/14/2024 01:57:51 PM Interpretation: Performing Lab:[facility] [address] [place], [place] [address]ox [facility], Phone - [phone], Director - [facility] Notes/Report: Hemoglobin A1c 5.6 4.8-5.6 % . Prediabetes: 5.7 - 6.4 Diabetes: >6.4 Glycemic control for adults with diabetes: <7.0 CBC With Differential/Platel et* Order date: 08/01/2024 Reviewed date:08/14/2024 01:57:51 PM Interpretation: Performing Lab:[facility] [place] [address] [facility], Phone - [phone], Director - [facility] Notes/Report: WBC 8.8 3.4-10.8 x10E3/uL RBC 4.85 3.77-5.28 x10E6/uL Hemoglobin 12.9 11.1-15.9 g/dL Hematocrit 40.7 34.0-46.6 % MCV 84 79-97 fL MCH 26.6 26.6-33.0 pg MCHC 31.7 31.5-35.7 g/dL RDW 13.9 11.7-15.4 % Platelets 393 150-450 x10E3/uL Neutrophils 64 Not Estab. % Lymphs 23 Not Estab. % Monocytes 9 Not Estab. % Eos 2 Not Estab. % Basos 1 Not Estab. % Neutrophils (Absolute) 5.8 1.4-7.0 x10E3/uL Lymphs (Absolute) 2.0 0.7-3.1 x10E3/uL Monocytes(Absolute) 0.8 0.1-0.9 x10E3/uL Eos (Absolute) 0.1 0.0-0.4 x10E3/uL Baso (Absolute) 0.0 0.0-0.2 x10E3/uL Immature Granulocytes 1 Not Estab. % Immature Grans (Abs) 0.0 0.0-0.1 x10E3/uL Lipid Panel* Order date: 08/01/2024 Reviewed date:08/14/2024 01:57:51 PM Interpretation: Performing Lab:[facility] [place], [address] [facility], Phone - [phone], Director - Tessie Notes/Report: Cholesterol, Total 210 100-199 mg/dL H Triglycerides 97 0-149 mg/dL HDL Cholesterol 63 >39 mg/dL VLDL Cholesterol Aristeo 17 5-40 mg/dL LDL Chol Calc (NIH) 130 0-99 mg/dL H CMP 14 Comprehensive Metabol ic Panel* Order date: 08/01/2024 Reviewed date:08/14/2024 01:57:51 PM Interpretation: Performing Lab:[facility] [place], [address] [facility], Phone - [phone], Director - eTssie Notes/Report: Glucose 103 70-99 mg/dL H BUN 13 6-20 mg/dL Creatinine 0.99 0.57-1.00 mg/dL eGFR 79 >59 mL/min/1.73 BUN/Creatinine Ratio 13 9-23 Sodium 136 134-144 mmol/L Potassium 4.4 3.5-5.2 mmol/L Chloride 101 96-106 mmol/L Carbon Dioxide, Total 22 20-29 mmol/L Calcium 9.3 8.7-10.2 mg/dL Protein, Total 7.8 6.0-8.5 g/dL Albumin 4.5 4.0-5.0 g/dL Globulin, Total 3.3 1.5-4.5 g/dL Bilirubin, Total <0.2 0.0-1.2 mg/dL Alkaline Phosphatase 122 44-121 IU/L H AST (SGOT) 17 0-40 IU/L ALT (SGPT) 14 0-32 IU/L TSH Rfx on Abnormal to Free T4 Order date: 08/01/2024 Reviewed date:08/14/2024 01:57:51 PM Interpretation: Performing Lab:[facility] [place], [address] [facility], Phone - [phone], Director - Tessie Notes/Report: TSH 2.690 0.450-4.500 uIU/mL Rheumatoid Arthritis Factor Order date: 02/08/2025 Reviewed date:02/16/2025 01:24:58 PM Interpretation: Performing Lab:[facility] [place], [address] [facility], Phone - [phone], Director - Tessie Notes/Report: Rheumatoid Factor (RF) 77.7 <14.0 IU/mL H Anti-CCP (Cyclic Citrullinat ed Peptide Antibodies, IgG and IgA, KACIE Order date: 02/08/2025 Reviewed date:02/16/2025 01:24:58 PM Interpretation: Performing Lab:[facility] Nina Pinto[address] [place] [address], Phone - [phone], Director - [facility] Notes/Report: Anti-CCP Ab, IgG/IgA 10 0-19 units Negative <20 Weak positive 20 - 39 Moderate positive 40 - 59 Strong positive >59 YAHAIRA by IFA, Reflex to 9-biom arkers profile, Serum Order date: 02/08/2025 Reviewed date:02/16/2025 01:24:58 PM Interpretation: Performing Lab:[facility] Millie Trey [facility], Phone - [phone], Director - [facility] Notes/Report: YAHAIRA by IFA Rfx Titer/Pattern Negative Negative <1:80 Borderline 1:80 Positive >1:80 ICAP nomenclature: AC-0 For more information about Hep-2 cell patterns use ANApatterns.org, the official website for the International Consensus on Antinuclear Antibody (YAHAIRA) Patterns (ICAP). Please Note: YAHAIRA Multiplex methodology was designed to detect up to 11 antibodies of the 100+ antibodies that may be detected by YAHAIRA IFA methodology. C-Reactive Protein, Quant Order date: 02/08/2025 Reviewed date:02/16/2025 01:24:59 PM Interpretation: Performing Lab:[facility] Millie Trey [facility], Phone - [phone], Director - [facility] Notes/Report: C-Reactive Protein, Quant 2 0-10 mg/L CBC With Differential/Platel et* Order date: 02/08/2025 Reviewed date:02/16/2025 01:24:59 PM Interpretation: Performing Lab:[facility] Radha Pinto Menezes [facility], Phone - [phone], Director - [facility] Notes/Report: WBC 8.8 3.4-10.8 x10E3/uL RBC 4.67 3.77-5.28 x10E6/uL Hemoglobin 12.7 11.1-15.9 g/dL Hematocrit 39.9 34.0-46.6 % MCV 85 79-97 fL MCH 27.2 26.6-33.0 pg MCHC 31.8 31.5-35.7 g/dL RDW 15.0 11.7-15.4 % Platelets 464 150-450 x10E3/uL H Neutrophils 63 Not Estab. % Lymphs 23 Not Estab. % Monocytes 8 Not Estab. % Eos 5 Not Estab. % Basos 1 Not Estab. % Neutrophils (Absolute) 5.6 1.4-7.0 x10E3/uL Lymphs (Absolute) 2.0 0.7-3.1 x10E3/uL Monocytes(Absolute) 0.7 0.1-0.9 x10E3/uL Eos (Absolute) 0.4 0.0-0.4 x10E3/uL Baso (Absolute) 0.0 0.0-0.2 x10E3/uL Immature Granulocytes 0 Not Estab. % Immature Grans (Abs) 0.0 0.0-0.1 x10E3/uL CMP 14 Comprehensive Metabol ic Panel* Order date: 02/08/2025 Reviewed date:02/16/2025 01:24:59 PM Interpretation: Performing Lab:[facility] [place], [address] [facility], Phone - [phone], Director - Tessie Notes/Report: Glucose 90 70-99 mg/dL BUN 13 6-20 mg/dL Creatinine 0.94 0.57-1.00 mg/dL eGFR 84 >59 mL/min/1.73 BUN/Creatinine Ratio 14 9-23 Sodium 139 134-144 mmol/L Potassium 3.9 3.5-5.2 mmol/L Chloride 103 96-106 mmol/L Carbon Dioxide, Total 20 20-29 mmol/L Calcium 9.4 8.7-10.2 mg/dL Protein, Total 7.8 6.0-8.5 g/dL Albumin 4.7 4.0-5.0 g/dL Globulin, Total 3.1 1.5-4.5 g/dL Bilirubin, Total 0.2 0.0-1.2 mg/dL Alkaline Phosphatase 85 41-116 IU/L AST (SGOT) 15 0-40 IU/L ALT (SGPT) 12 0-32 IU/L Triiodothyronine (T3) Order date: 02/08/2025 Reviewed date:02/16/2025 01:24:59 PM Interpretation: Performing Lab:[address], Phone - [phone], Director - [facility] Notes/Report: Triiodothyronine (T3) 83 71-180 ng/dL TSH Rfx on Abnormal to Free T4 Order date: 02/08/2025 Reviewed date:02/16/2025 01:24:59 PM Interpretation: Performing Lab:[address], Phone - [phone], Director - [facility] Notes/Report: TSH 0.740 0.450-4.500 uIU/mL Lipid Panel* Order date: 02/08/2025 Reviewed date:02/16/2025 01:24:59 PM Interpretation: Performing Lab:[facility] [employer], Phone - [phone], Director - [facility] Notes/Report: Cholesterol, Total 185 100-199 mg/dL Triglycerides 69 0-149 mg/dL HDL Cholesterol 51 >39 mg/dL VLDL Cholesterol Aristeo 13 5-40 mg/dL LDL Chol Calc (NIH) 121 0-99 mg/dL H HIV Screen *HIV 1, 2 Ab, p24 Ag ([id number]) Order date: 02/08/2025 Reviewed date:02/16/2025 01:24:59 PM Interpretation: Performing Lab:[facility], [address] [place] [address], Phone - [phone], Director - [facility] Notes/Report: HIV Ab/p24 Ag Screen Preliminary Reactive Non Reactive Please refer to the Final Interpretation. Results reactive by HIV Antigen/Antibody EIA must be confirmed by the HIV testing algorithm to be considered indicative of a true HIV infection. HIV 1 Ab Non Reactive Non Reactive HIV 2 Ab Non Reactive Non Reactive Interpretation: Negative See RNA R eflex. HIV-1 RNA Non Reactive Non Reactive HIV-2 RNA Non Reactive Non Reactive Final Interpretation HIV Negative HIV antibodies were NOT confirmed and HIV-1 and HIV-2 RNA was NOT detected. No laboratory evidence of HIV Infection. Possible biologic false positive. Hepatitis B Surface Antigen (HBsAg Screen) Order date: 02/08/2025 Reviewed date:02/16/2025 01:24:59 PM Interpretation: Performing Lab:[address], Phone - [phone], Director - [facility] Notes/Report: HBsAg Screen Confirm. indicated Negative HBsAg Confirmation Negative Final result obtained by neutralization. Hepatitis C Virus Antibody w /Rflx to Quantitative Real-time PCR ([id number]) Order date: 02/08/2025 Reviewed date:02/16/2025 01:24:59 PM Interpretation: Performing Lab:[address], Phone - [phone], Director - [facility] Notes/Report: HCV Ab Non Reactive Non Reactive Interpretation: Not infected with HCV unless early or acute infection is suspected (which may be delayed in an immunocompromised individual), or other evidence exists to indicate HCV infection. Rapid Plasma Reagin (RPR) Te st With Reflex to Quantitative RPR and Confirmatory Treponema pallidum Antibodies Order date: 02/08/2025 Reviewed date:02/16/2025 01:24:59 PM Interpretation: Performing Lab:[address], Phone - [phone], Director - [facility] Notes/Report: RPR Non Reactive Non Reactive QuantiFERON-TB Gold Plus ([id number] 2879) Order date: 02/08/2025 Reviewed date:02/16/2025 01:24:59 PM Interpretation: Performing Lab:[address], Phone - [phone], [facility] - [facility] Notes/Report: QuantiFERON Incubation Incubation performed. QuantiFERON-TB Gold Plus Negative Negative No response to M tuberculosis antigens detected. Infection with M tuberculosis is unlikely, but high risk individuals should be considered for additional testing (ATS/IDSA/CDC Clinical Practice Guidelines, 2017). The reference range is an Antigen minus Nil result of <0.35 IU/mL. Chemiluminescence immunoassay methodology QuantiFERON Criteria QuantiFERON-TB Gold Plus is a qualitative indirect test for M tuberculosis infection (including disease) and is intended for use in conjunction with risk assessment, radiography, and other medical and diagnostic evaluations. The QuantiFERON-TB Gold Plus result is determined by subtracting the Nil value from either TB antigen (Ag) value. The Mitogen tube serves as a control for the test. QuantiFERON TB1 Ag Value 0.03 QuantiFERON TB2 Ag Value 0.02 QuantiFERON Nil Value 0.02 QuantiFERON Mitogen Value >10.00 UA/M w/rflx Culture, Routine Order date: 02/08/2025 Reviewed date:02/16/2025 01:24:58 PM Interpretation: Performing Lab:[facility], [address] [place] [address], Phone - [phone], Director - Tessie Notes/Report: Specific [place] 1.025 1.005-1.030 pH 5.5 5.0-7.5 Urine-Color Yellow Yellow Appearance Turbid Clear A WBC Esterase Trace Negative A Protein Trace Negative/Trace Glucose Negative Negative Ketones Negative Negative Occult Blood Negative Negative Bilirubin Negative Negative Urobilinogen,Semi-Qn 0.2 0.2-1.0 mg/dL Nitrite, Urine Negative Negative Microscopic Examination See below: M icroscopic was indicated and was performed. Urinalysis Reflex This sp ecimen has reflexed to a Urine Culture. WBC 6-10 0 - 5 /hpf A RBC None seen 0 - 2 /hpf Epithelial Cells (non renal) >10 0 - 10 /hpf A Casts None seen None seen /lpf Crystals Present N/A A Crystal Type Calcium Oxalate N/A Mucus Threads Present Not Estab. Bacteria Many None seen/Few A Urine Culture, Routine Final report Result 1 No growth Rapid Plasma Reagin (RPR) Te st With Reflex to Quantitative RPR and Confirmatory Treponema pallidum Antibodies Order date: 04/12/2024 Reviewed date:04/16/2024 05:55:51 PM Interpretation: Performing Lab:[address], Phone - [phone], Director - [place] Notes/Report: Test(s) 425780- Atopobium vaginae; 614580- BVAB 2; 332963- Megasphaera 1 was developed and its performance characteristics determined by [facility]. It has not been cleared or approved by the Food and Drug Administration. Test(s) 500544-Mmevkfa albicans, FATMATA; 427438-Rryvofh glabrata, FATMATA was developed and its performance characteristics determined by [facility]. It has not been cleared or approved by the Food and Drug Administration. RPR Non Reactive Non Reactive HIV Screen *HIV 1, 2 Ab, p24 Ag ([id number]) Order date: 04/12/2024 Reviewed date:04/16/2024 05:55:51 PM Interpretation: Performing Lab:[facility] Shahrzad Avendaño [place], Phone - [phone], Director - [place] Notes/Report: Test(s) 540373- Atopobium vaginae; 978803- BVAB 2; 648603- Megasphaera 1 was developed and its performance characteristics determined by [employer]. It has not been cleared or approved by the Food and Drug Administration. Test(s) 377957-Cskkxzq albicans, FATMATA; 173849-Bzvvmxh glabrata, FATMATA was developed and its performance characteristics determined by [employer]. It has not been cleared or approved by the Food and Drug Administration. HIV Ab/p24 Ag Screen Non Reactive Non Reactive HIV-1/HIV-2 antibodies and HIV-1 p24 antigen were NOT detected. There is no laboratory evidence of HIV infection. HIV Negative Pap IG Aptima HPV Age Gdln, +CtNgTv (046571) Order date: 04/12/2024 Reviewed date:04/16/2024 05:55:51 PM Interpretation:Normal Performing Lab:[facility] [place], [place]o [place], Phone - [phone], Director - [place]a Notes/Report: Clinical Information:[id number] Clinical Information:[id number] Age Gdln ACOG Testing 21-29 DIAGNOSIS: NEGATIVE FOR INTRAEPITHELIAL LESION OR MALIGNANCY. Specimen adequacy: Satisf actory for evaluation. No endocervical component is identified. Clinician provided ICD10: Z01.419 Performed by: Quique Grissom, Corpsman (ASCP) . . Note: The Pap smear is a screening test designed to aid in the detection of premalignant and malignant conditions of the uterine cervix. It is not a diagnostic procedure and should not be used as the sole means of detecting cervical cancer. Both false-positive and false-negative reports do occur. . Test Methodology: This liquid based ThinPrep(R) pap test was screened with the use of an image guided system. . The HPV DNA reflex criteria were not met with this specimen result therefore, no HPV testing was performed. . Chlamydia, Nuc. Acid Amp Negative Negative Gonococcus, Nuc. Acid Amp Negative Negative Trich vag by FATMATA Negative Negative NuSwab Vaginitis Plus (VG+) (497678) Order date: 04/12/2024 Reviewed date:04/16/2024 05:55:51 PM Interpretation: Performing Lab:[facility] [place], [address] [place] [address] [place], Phone - [phone], Director - [place]a Notes/Report: Test(s) 215106- Atopobium vaginae; 842368- BVAB 2; 240603- Megasphaera 1 was developed and its performance characteristics determined by [facility]. It has not been cleared or approved by the Food and Drug Administration. Test(s) 985091-Mhkjfco albicans, FATMATA; 996339-Mueygvi glabrata, FATMATA was developed and its performance characteristics determined by [facility]. It has not been cleared or approved by the Food and Drug Administration. Atopobium vaginae Moderate - 1 BVAB 2 High - 2 A Megasphaera 1 High - 2 A Calculate total score by adding the 3 individual bacterial vaginosis (BV) marker scores together. Total score is interpreted as follows: Total score 0-1: Indicates the absence of BV. Total score 2: Indeterminate for BV. Additional clinical data should be evaluated to establish a diagnosis. Total score 3-6: Indicates the presence of BV. Stephanie albicans, FATMATA Negative Negative Stephanie glabrata, FATMATA Negative Negative Trich vag by FATMATA Negative Negative Chlamydia trachomatis, FATMATA Negative Negative Neisseria gonorrhoeae, FATMATA Negative Negative Urinalysis In-House, Routine Order date: 02/08/2025 Reviewed date:02/08/2025 11:28:37 AM Interpretation: Performing Lab: Notes/Report: Urine-Color jimmy Appearance cloudy Leukocytes small Nitrite, Urine POS Urobilinogen,Semi-Qn 0.2 Protein trace pH 6.0 Occult Blood neg Specific [place] 1.030 Ketones neg Bilirubin neg Glucose neg Reason For Referral Referral Date 07/27/2024 Referral Status Open Reason BMI OVER 40 WITH DM2 AND HBP Diagnosis 1 Obesity, morbid, BMI 40.0-49.9 (E66.01) Referral Organization [facility] Referring Provider First Name Skyler Referring Provider Last Name Mane Referring Provider Speciality Internal M edicine Referred Provider Specialty Bariatric Van rgery General Notes Davion Moran 02:02:44 PM >Referral sent with attachments. Letter mailed Clinical Notes [facility] Surgery, [address] [place] [address] , [address], Medical Office Building [address], [place] [address], , Referral Priority Routine Referral Date 08/14/2024 Referral Status Pending Reason Request for hypothyr oid f/u Diagnosis 1 Hypothyroidism (E03. 9) Referral Organization [facility] Referring Provider First Name Skyler Referring Provider Last Name Mane Referring Provider Speciality Internal edicine Referred Provider Specialty Endocrinolog y General Notes Rosy Escalera 09/2024 10:50:47 AM > Successfully faxed referral order and pt. information to below provider. Pt. notified by automated message and verbally over the phone. See TE for more details. Clinical Notes [facility] Endocrinology , [facility], Hitesh Galdamez MD, [address], [place] [phone] , , Referral Priority Routine Referral Date 09/20/2024 Referral Status Open Reason annual exam, prefers [facility] Diagnosis 1 Well woman exam with routine gynecological exam (Z01.419) Referral Organization [facility] hospital Referring Provider First Name Skyler Referring Provider Last Name Mane Referring Provider [facility] [address] Internal [facility] Referred Provider Specialty Substitute Nurse General Notes Lilly St RN 09/20/2024 02:53:17 PM > Referral to [facility]. letter to patient. Clinical Notes [facility], [address] [facility], [facility] [address], , Fax# Referral Priority Routine Referral Date 11/27/2024 Referral Status Open Reason HOME SLEEP STUDY WIT H REFLEX FULL PSG IF ABNL, PREFERS [facility] Diagnosis 1 Sleep disorder (G47. 9) Referral Organization [facility] Referring Provider First Name Skyler Referring Provider Last Name Mane Referring Provider Speciality Internal edicine Referred Provider Specialty Sleep Medici ne General Notes Lilly St RN 02/16/2025 02:25:12 PM > Referral to [facility]. Letter to pt. Clinical Notes [facility], [address] [facility] [address], , Referral Priority Routine Referral Date 11/27/2024 Referral Status Open Reason CAVITIES, PREFERS [facility] [place] Diagnosis 1 Dental caries (K02.9 ) Referral Organization [facility] hospital Referring Provider First Name Skyler Referring Provider Last Name Mane Referring Provider Speciality Internal M edicine Referred Provider Specialty Dental Care General Notes Lilly St RN 02/16/2025 02:07:49 PM > Referral to [facility]. Letter to pt. Clinical Notes [facility], [address] [place] [id number], , Fax#[phone] Referral Priority Routine Referral Date 02/16/2025 Referral Status Open Reason Positive rheumatoid factor with NL YAHAIRA, anti-CCP, and CRP Diagnosis 1 Abnormal laboratory test (R89.9) Referral Organization [facility] Referring Provider First Name Skyler Referring Provider Last Name Mane Referring Provider Speciality Internal edicine Referred Provider Specialty Rheumatology General Notes Lilly St RN 02/16/2025 01:59:42 PM > Referral to Dr. Edwin Grossman. Letter to pt. Clinical Notes Dr. Edwin Grossman, [address] [place] [address], Referral Priority Routine Addressed Referral details can be found under 'Consultation Request Notes' section Medications Medication SIG (Take, Route, Frequency, Duration) Notes Start Date End Date Diagnosis (ICD Code) Status Abilify Maintena 400 MG Prefilled Syringe as directed Intramuscular once every 28 days; Duration: 28 days 12/22/19 25 Bipolar 1 disorder (ICD_10 - F31.9) Active buPROPion HCl ER (XL) 150 MG Tablet Extended Release 24 Hour 1 tablet in the morning Orally daily; Duration: 30 days Bipolar 1 disorder (ICD_10 - F31.9) Active Cetirizine HCl 10 MG Tablet 1 tablet as needed Orally Once a day; Duration: 30 days As needed NASAL DRAINAGE 04/03/19 25 Serous otitis media, unspecified chronicity, unspecified laterality (ICD_10 - H65.90) Active buPROPion HCl ER (XL) 300 MG Tablet Extended Release 24 Hour 1 tablet in the morning Orally Once a day; Duration: 30 days 01/27/20 24 Bipolar 1 disorder (ICD_10 - F31.9) Active valACYclovir HCl 1 GM Tablet 2 tablet Orally every 12 hours; Duration: 1 days 06/17/19 Active Tirosint 100 MCG Capsule 1 capsule in the morning on an empty stomach Orally Once a day; Duration: 30 days Approved until 05/10/24. Hypothyroidism (ICD_10 - E03.9) Active Vitamin D (Ergocalciferol) 1.25 MG (87801 UT) Capsule 1 capsule Orally once a week; Duration: 30 days Bipolar 1 disorder (ICD_10 - F31.9) Active Fluticasone Propionate 50 MCG/ACT Suspension ADMINISTER 1 SPRAY INTO EACH NOSTRIL TWICE DAILY; Duration: 90 Active Trulicity 4.5 MG/0.5ML Solution Auto-injector 0.5 mL Subcutaneous weekly; Duration: 28 days Diabetes mellitu s (ICD_10 - E11.9) Active Propranolol HCl 40 MG Tablet 1 tablet Orally Twice a day; Duration: 30 days 02/16/20 Bipolar 1 disorder (ICD_10 - F31.9) Active Fluconazole 100 MG Tablet 1 tablet Orally daily; Duration: 7 days 02/09/20 25 Thrush, oral (ICD_10 - B37.0) Active Nitrofurantoin Macrocrystal 100 MG Capsule 1 capsule Orally twice a day; Duration: 5 days 02/09/20 UTI symptoms (ICD_10 - R39.9) Active Nystatin 159611 UNIT/ML Suspension 5 mL Mouth/Throat Four times a day; Duration: 14 days swish in mouth for at least 2 minutes, then spit out 02/14/20 Active Zoloft 100 MG Tablet 1.5 tablets Orally Once a day; Duration: 30 days 12/14/19 Bipolar 1 disorder (ICD_10 - F31.9) Active Propranolol HCl 20 MG Tablet TAKE 1 TABLET BY MOUTH TWICE DAILY NEEDED; Duration: 90 Active Topiramate 200 MG Tablet 1 tablet Orally twice a day; Duration: 30 days WITH SUPPER Diabetes mellitu s (ICD_10 - E11.9) Active metFORMIN HCl ER 500 MG Tablet Extended Release 24 Hour 1 tablet with evening meal Orally Once a day; Duration: 30 days Diabetes mellitu s (ICD_10 - E11.9) Active OXcarbazepine 600 MG Tablet 1 tablet Orally Twice a day; Duration: 30 days Bipolar 1 disorder (ICD_10 - F31.9) Active traZODone HCl 150 MG Tablet 1 tablet at bedtime Orally Once a day; Duration: 30 days Bipolar 1 disorder (ICD_10 - F31.9) Active amLODIPine Besylate 5 MG Tablet 1 tablet Orally Once a day; Duration: 30 days Hypertension (ICD_10 - I10) Active Social History Tobacco Use: Social History Observation Description Date Details (start date - stop date) Current Smoker NA - NA Sex Observation Social History Observation Description Sex Observation Female Sexual Orientation Social History Observation Description Sexual Orientation Straight or heterose xual Gender Identity Social History Observation Description Gender Identity Female SDOH Assessments Date Tool Assessment Assessment LOINC Value Assessment Notes Goals Interventions 11/28/19 PRAPARE (LOINC: 01141-7) Total Score: 5 Date Completed/Upda solomon: 04/20/19 25 What is your current housing situation? 66359-3 I have housing (TU55229-2) Are you worried about losing your housing? 23893-3 No (LA32-8) What is the highest level of school that you have finished? 83631-2 More than high school (WQ07814-8) What is your current work situation? 57957-5 Otherwise unemployed but not seeking work (ex. 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 Check all that apply 67597-1 I do not have problems meeting my needs Has lack of transportation k ept you from medical appointments, meetings, work or from getting things needed for daily living? 83181-8 No (LA32-8) How often do you see or talk to people that you care about and feel close to? (For example: talking to friends on the phone, visiting friends or family, going to jew or club meetings) 56451-3 More than 5 times a week (RY00571-4) How stressed are you? Stress is when someone feels tense, nervous, anxious, or can\t sleep at night because their mind is troubled 45956-8 Quite a bit (NS44715-9) In the past year have you sp ent more than 2 nights in a row in a detention, jail, long term center, or juvenile correctional facility? 52318-1 No (LA32-8) Do you feel physically and emotionally safe where you currently live? 49111-9 Yes (LA33-6) In the past year, have you b een afraid of your partner or ex-partner? 44585-1 No (LA32-8) PRAPARE Score: 5 Social History Social Determinants Social Info Question Answer Notes PRAPARE Date Completed/Updated: 04/20/2024 What is your current housing situation? I have h ousing Are you worried about losing your housing? No What is the highest level of school that you have finished? More than high school What is your current work situation? Oth erwise unemployed but not seeking work (ex. 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 Check all that apply I do not have problems meeting my needs Has lack of transportation k ept you from medical appointments, meetings, work or from getting things needed for daily living? No How often do you see or talk to people that you care about and feel close to? (For example: talking to friends on the phone, visiting friends or family, going to jew or club meetings) More than 5 times a week How stressed are you? Stress is when someone feels tense, nervous, anxious, or can\t sleep at night because their mind is troubled Quite a bit In the past year have you sp ent more than 2 nights in a row in a detention, jail, long term center, or juvenile correctional facility? No Do you feel physically and e motionally safe where you currently live? Yes In the past year, have you b een afraid of your partner or ex-partner? No PRAPARE Score: 5 Miscellaneous Social Info Question Answer Notes Method of learning: Preferred method of learning: Disc ussion,Demonstration Primary Social History Social Info Question Answer Notes Living Arrangement Living Arrangement: Independent Fariba ing Is this a supportive environment? Yes Single Question Alcohol Screening How many times in the past year have you had (4 for women, or 5 for men) or more drinks in a day? 0 Employment Status Employment Status: On Disability Illicit Substance Usage Illicit Substance Usage: No Alcohol Use Alcohol Use Frequency: Never Tobacco Use: Social Info Question Answer Notes Tobacco Control (Standard) Tobacco use: Current smoker Problems Problem Type SNOMED Code ICD Code Dates Problem Status W/U Status Risk Notes Problem Morbid obesity (disorder) (366234638) Morbid (severe) obesity due to excess calories (E66.01) Added On:08/28 Active confirmed Problem Tobacco user (086894952) Nicotine dependence, unspecified, uncomplicated (F17.200) Added On:01/26 Active confirmed Problem Hypertension (10716281) Hypertension (I10) Added On:08/18 Onset Date: 08/19/19 Active confirmed Problem Posttraumatic stress disorder (73538865) PTSD (post-traumatic stress disorder) (F43.10) Added On:09/25 Onset Date: 12/09/19 Active confirmed Problem Bipolar 1 disorder (101531294) Bipolar 1 disorder (F31.9) Added On:05/19 Active confirmed Problem Hypothyroidism (10456912) Hypothyroidism (E03.9) Added On:10/29 Active confirmed Problem Abdominal pain (98991942) Abdominal pain (R10.9) Added On:10/30 Active confirmed Problem Otitis externa (4315301) Otitis externa (H60.90) Added On:07/27 Active confirmed Problem Laboratory test result abnormal (950222534) Abnormal laboratory test (R89.9) Added On:02/16 Active confirmed Problem Sleep disorder (74464598) Sleep disorder (G47.9) Added On:11/27 Active confirmed Problem Adult health examination (073672499) Routine adult health maintenance (Z00.00) Added On:08/27 Active confirmed Problem Trigger finger (4981895) Trigger finger (M65.30) Added On:11/13 Active confirmed Problem Overweight (955144957) Over weight (E66.3) Added On:11/27 Active confirmed Problem Rheumatoid arthritis (29916450) Rheumatoid arthritis (M06.9) Added On:11/13 Active confirmed Problem Diabetes mellitus (55295048) Diabetes mellitus (E11.9) Added On:05/19 Onset Date: 05/20/19 Active confirmed Problem Abnormal mammogram (617490263) Abnormal mammogram (R92.8) Added On:09/23 Active confirmed Problem Arthritis (5773325) Arthritis (M19.90) Added On:10/30 Active confirmed Problem SI - Stress incontinence (66657954) Stress incontinence (N39.3) Added On:01/05 Active confirmed Problem Vitamin D deficiency (95126778) Vitamin D deficiency disease (E55.9) Added On:03/10 Active confirmed Problem Premenstrual tension syndrome (16437256) PMDD (premenstrual dysphoric disorder) (F32.81) Added On:09/25 Onset Date: 12/09/19 Active confirmed Problem Acute pharyngitis (513022615) Sorethroat (J02.9) Added On:12/30 Active confirmed Problem Moderate recurrent major depression (11593182) Depression, major, recurrent, moderate (F33.1) Added On:11/19 Onset Date: 12/09/19 Active confirmed Problem Morbid obesity (829028123) Obesity, morbid, BMI 40.0-49.9 (E66.01) Added On:12/06 Active confirmed Problem Obesity (895775829) Obesity, unspecified classification, unspecified obesity type, unspecified whether serious comorbidity present (E66.9) Added On:10/30 Active confirmed Problem Breast lump (90668033) Breast lump (N63.0) Added On:09/02 Active confirmed Problem Hypertension complicating (disorder) (31296766240162) Hypertension affecting in first trimester (O16.1) Added On:05/19 Active confirmed Problem Female urinary stress incontinence (69319180) Stress incontinence in female (N39.3) Added On:01/26 Active confirmed Problem COVID-19 (237173652) COVID-19 (U07.1) Added On:12/15 Active confirmed Problem Macromastia (329071986) Macromastia (N62) Added On:02/16 Active confirmed Problem Dyspnea (506984531) Shortness of breath on exertion (R06.02) Added On:08/28 Active confirmed Vital Signs Vital Sign Value Notes Appt Date Heart Rate 85 /min f 02/08/2025 Temperature 97.6 degrees Fahrenheit f 06/2024 Respiratory Rate 18 /min f 02/08/2025 Blood pressure diastolic 72 mm Hg f 06/2024 Oximetry 98 % f 02/08/2025 Height 62 in f 02/08/2025 Blood pressure systolic 118 mm Hg f 06/2024 Weight 212.4 lbs f 02/08/2025 BMI 38.84 kg/m2 f 02/08/2025 Encounters Date Time Type Facility Location Provider Diagnosis 08/02/19 09:00 AM Office Visit [address] [address] Skyler Gilliam Diabetes mellitus E11.9 ; Otitis media in diseases classified elsewhere, left ear H67.2 and Hypertension I10 02/09/20 11:00 AM Office Visit [address] [address] Skyler Gilliam 02/27/20 25 09:00 AM Office Visit [address] [address] Jayne Al 04/03/19 02:20 PM Office Visit, Est Pt., Level 3 (02776) [address] [address] Skyler Gilliam Serous otitis media, unspecified chronicity, unspecified laterality H65.90 and Viral URI J06.9 04/05/19 25 08:40 AM BEHAV CHNG SMOKING 3-10 MIN (90433) [address] [place] [address] Jayne Al PTSD (post-traumatic stress disorder) F43.10 ; PMDD (premenstrual dysphoric disorder) F32.81 ; Bipolar 1 disorder F31.9 and Nicotine dependence, unspecified, uncomplicated F17.200 04/12/19 25 02:20 PM Office Visit, Est Pt., Level 3 (22355) [address] [address] Rosy Short Well woman exam with routine gynecological exam Z01.419 and Exposure to potential infection Z20.9 05/13/19 25 09:20 AM BEHAV CHNG SMOKING 3-10 MIN (50342) [address] [address] Jayne Al PTSD (post-traumatic stress disorder) F43.10 ; PMDD (premenstrual dysphoric disorder) F32.81 ; Bipolar 1 disorder F31.9 and Nicotine dependence, unspecified, uncomplicated F17.200 07/28/19 25 01:40 PM Office Visit, Est Pt., Level 3 (75138) [address] [address] Skyler Gilliam Otitis externa H60.90 ; Otitis media in diseases classified elsewhere, left ear H67.2 ; Obesity, morbid, BMI 40.0-49.9 E66.01 ; Diabetes mellitus E11.9 and Hypertension I10 08/25/19 25 09:40 AM Office Visit, Est Pt., Level 3 (13578) [address] [address] Skyler Gilliam Morbid (severe) obesity due to excess calories E66.01 08/31/19 25 10:40 AM Telehealth Office Visit, Est Pt., Level 4 (83630) [facility] [address] [place] [address] Jayne Al PTSD (post-traumatic stress disorder) F43.10 ; PMDD (premenstrual dysphoric disorder) F32.81 and Bipolar 1 disorder F31.9 11/28/19 25 01:40 PM Office Visit, Est Pt., Level 3 (50613) [facility] [place] [address] [place] [address] Skyler Gilliam Over weight E66.3 ; Dental caries K02.9 ; Sleep disorder G47.9 and Obesity, unspecified classification, unspecified obesity type, unspecified whether serious comorbidity present E66.9 12/14/19 25 03:40 PM Office Visit, Est Pt., Level 4 (38826) [facility] [address] [address] Raisa Guerrero PTSD (post-traumatic stress disorder) F43.10 ; Bipolar 1 disorder F31.9 and Over weight E66.3 12/22/19 25 11:20 AM Telehealth Office Visit, Est Pt., Level 3 (98744) [facility] [address], [place] [address] Raisa Guerrero PTSD (post-traumatic stress disorder) F43.10 ; Bipolar 1 disorder F31.9 and Over weight E66.3 12/26/19 25 09:00 AM Office Visit [address] [address] Jayne Al Bipolar 1 disorder F31.9 01/05/20 01:00 PM Office Visit, Est Pt., Level 4 (11891) [address] [place] [address] Jayne Al PTSD (post-traumatic stress disorder) F43.10 ; Bipolar 1 disorder F31.9 ; PMDD (premenstrual dysphoric disorder) F32.81 and Over weight E66.3 01/30/20 09:00 AM Office Visit [address] [place] [address] Jayne Al Bipolar 1 disorder F31.9 02/09/20 10:20 AM Office Visit, Est Pt., Level 4 (83890) [address] [address] Skyler Gilliam Diabetes mellitus E11.9 ; Joint pain M25.50 ; Fatigue R53.83 ; Lipid screening Z13.220 ; Exposure to potential infection Z20.9 ; Hypothyroidism E03.9 ; UTI symptoms R39.9 ; Vaginitis N76.0 ; Hypertension I10 and Thrush, oral B37.0 02/16/20 25 11:00 AM CLIN DEPRESSION SCREEN DOC (G8431) [address] [address] Jayne Al Bipolar 1 disorder F31.9 02/24/20 25 03:20 PM Telephone Encounter [address] [address] Skyler Gilliam 03/22/19 25 04:18 PM Telephone Encounter [place] [address] [place] [address] Jayne Al PTSD (post-traumatic stress disorder) F43.10 04/16/19 25 05:53 PM Telephone Encounter [address] [address] Rosy Short Vaginosis N76.0 04/18/19 25 02:33 PM Telephone Encounter [facility] [place] [address] [place] [address] Jayne Al PTSD (post-traumatic stress disorder) F43.10 04/21/19 25 10:11 AM Telephone Encounter [address] [address] Lexi Renteria 04/21/19 25 11:01 AM Telephone Encounter [address] [address] Lexi Renteria 05/02/19 25 04:25 PM Telephone Encounter [address] [address] Jayne Al PTSD (post-traumatic stress disorder) F43.10 06/14/19 25 03:10 PM Telephone Encounter [address] [address] Skyler Gilliam 07/29/19 25 03:24 PM Telephone Encounter [address] [address] Skyler Gilliam 08/02/19 25 08:04 AM Telephone Encounter [address] [address] Skyler Gilliam 08/02/19 25 09:23 AM Telephone Encounter [address] [address] Skyler Gilliam Otitis externa H60.90 08/04/19 25 12:34 PM Telephone Encounter [address] [address] Skyler Gilliam Otitis externa H60.90 08/10/19 25 12:24 PM Telephone Encounter [address] [address] Skyler Gilliam 08/24/19 25 08:44 AM Telephone Encounter [address] [address] Jayne Al PTSD (post-traumatic stress disorder) F43.10 08/30/19 25 01:11 PM Telephone Encounter [address] [address] Skyler Gilliam 09/12/19 25 08:49 AM Telephone Encounter [address] [address] Skyler Gilliam 09/14/19 25 03:23 PM Telephone Encounter [address] [address] Skyler Gilliam Well woman exam with routine gynecological exam Z01.419 and Dental caries K02.9 10/11/19 25 10:14 AM Telephone Encounter [address] [address] Jayne Al PMDD (premenstrual dysphoric disorder) F32.81 12/09/19 25 09:37 AM Telephone Encounter [address] [address] Jayne Al 12/14/19 25 04:10 PM Telephone Encounter [address] [address] Raisa Guerrero 12/16/19 25 11:11 AM Telephone Encounter [address] [address] Skyler Gilliam 12/19/19 25 10:12 AM Telephone Encounter [address] [place] [address] Raisa Cesar 12/20/19 03:01 PM Telephone Encounter [facility] [address] [place] [address] Raisa Babbmaya 12/22/19 25 12:02 PM Telephone Encounter [address] [place] [address] Lexi Lawrencerudy Bipolar 1 disorder F31.9 01/05/20 25 08:48 AM Telephone Encounter [facility] [address] [place] [address] Skyler Gilliam PTSD (post-traumatic stress disorder) F43.10 01/19/20 25 07:34 AM Telephone Encounter [address] [address] Jayne Al PTSD (post-traumatic stress disorder) F43.10 01/27/20 25 01:30 PM Telephone Encounter [place] [address] [place] [address] Jayne Al 02/06/20 25 07:43 AM Telephone Encounter [address] [address] Jayne Al 02/07/20 07:07 AM Telephone Encounter [address] [address] Skyler Gilliam Hypothyroidism E03.9 02/14/20 07:03 AM Telephone Encounter [address] [address] Skyler Gilliam Thrush, oral B37.0 02/16/20 11:31 AM Telephone Encounter [address] [place] [address] Skyler Gilliam 02/16/20 04:13 PM Telephone Encounter [address] [place] [address] Skyler Gilliam Abnormal laboratory test R89.9 Assessments Encounter Date Diagnosis (ICD Code) Assessment Notes Treat ment Notes Section Notes 02/15/2025 Abnormal laboratory test (ICD-10 - R89.9) 09/13/2024 Well woman exam with routine gynecological exam (ICD-10 - Z01.419) 07/27/2024 Otitis externa (ICD-10 - H60.90) 08/24/2024 Morbid (severe) obesity due to excess calories (ICD-10 - E66.01) 04/03/2024 Serous otitis media, unspecified chronicity, unspecified laterality (ICD-10 - H65.90) 04/03/2024 Viral URI (ICD-10 - J06.9) 04/12/2024 Exposure to potentia l infection (ICD-10 - Z20.9) 02/13/2025 Thrush, oral (ICD-10 - B37.0) 10/10/2024 PMDD (premenstrual dysphoric disorder) (ICD-10 - F32.81) CancelRx Response got Denied on 2024-10-12 15:52:34 for 'Sertraline HCl 100 MG Tablet'Pharmacy Notes: Unable to Cancel Rx. Please contact Pharmacy 09/13/2024 Dental caries (ICD-1 0 - K02.9) 11/27/2024 Dental caries (ICD-1 0 - K02.9) 12/13/2024 PTSD (post-traumatic stress disorder) (ICD-10 - F43.10) 12/21/2024 PTSD (post-traumatic stress disorder) (ICD-10 - F43.10) 01/04/2025 PTSD (post-traumatic stress disorder) (ICD-10 - F43.10) 01/04/2025 PTSD (post-traumatic stress disorder) (ICD-10 - F43.10) Continue current medications. Labs done recently. Continue services as scheduled. May self-administer medications or be administered own oral medications per [facility] protocols. Provided informed consent with understanding of side effects, adverse effects, risks and benefits as well as alternative treatments as previously discussed and with the above recommended medications & other aspects of the treatment program. Agrees to return sooner if symptoms worsen or suicidal or homicidal ideations occur. 01/18/2025 PTSD (post-traumatic stress disorder) (ICD-10 - F43.10) 04/18/2024 PTSD (post-traumatic stress disorder) (ICD-10 - F43.10) 05/02/2024 PTSD (post-traumatic stress disorder) (ICD-10 - F43.10) 05/12/2024 PTSD (post-traumatic stress disorder) (ICD-10 - F43.10) Continue current medications. Continue services as scheduled. Labs completed recently. May self-administer medications or be administered own oral medications per [facility] protocols. Provided informed consent with understanding of side effects, adverse effects, risks and benefits as well as alternative treatments as previously discussed and with the above recommended medications & other aspects of the treatment program. Agrees to return sooner if symptoms worsen or suicidal or homicidal ideations occur. 08/23/2024 PTSD (post-traumatic stress disorder) (ICD-10 - F43.10) 08/30/2024 PTSD (post-traumatic stress disorder) (ICD-10 - F43.10) Continue current medications. Continue services as scheduled. Labs completed recently. May self-administer medications or be administered own oral medications per [facility] protocols. Provided informed consent with understanding of side effects, adverse effects, risks and benefits as well as alternative treatments as previously discussed and with the above recommended medications & other aspects of the treatment program. Agrees to return sooner if symptoms worsen or suicidal or homicidal ideations occur. 03/22/2024 PTSD (post-traumatic stress disorder) (ICD-10 - F43.10) 04/05/2024 PTSD (post-traumatic stress disorder) (ICD-10 - F43.10) 07/27/2024 Otitis media in diseases classified elsewhere, left ear (ICD-10 - H67.2) 12/21/2024 Bipolar 1 disorder (ICD-10 - F31.9) 12/25/2024 Bipolar 1 disorder (ICD-10 - F31.9) 01/04/2025 Bipolar 1 disorder (ICD-10 - F31.9) 01/29/2025 Bipolar 1 disorder (ICD-10 - F31.9) 02/15/2025 Bipolar 1 disorder (ICD-10 - F31.9) Increase Propranolol to help with anxiety/agitation. She had taken 40mg and tolerated it well without any apparent side effects of lower BP. No dizziness. Continue other medications. She had been concerned about reza with the second dose, but the elevated mood resolved. Encouraged to take Oxcarbazepine as prescribed. She is requesting rheumatology referral from Dr Gilliam. Labs done recently. Continue services as scheduled. Reviewed [employer]ER May self-administer medications or be administered own oral medications per [facility] protocols. Provided informed consent with understanding of side effects, adverse effects, risks and benefits as well as alternative treatments as previously discussed and with the above recommended medications & other aspects of the treatment program. Agrees to return sooner if symptoms worsen or suicidal or homicidal ideations occur. 12/13/2024 Bipolar 1 disorder (ICD-10 - F31.9) Continue Bupropion Hcl ER 150 mg, 300 mg Continue Sertraline 150 mg Continue Lurasidone 120 mg Start ziprasidone 40 mg BID Increase trazodone to 100 mg nightly 08/01/2024 Otitis externa (ICD-10 - H60.90) 08/03/2024 Otitis externa (ICD-10 - H60.90) 02/08/2025 Joint pain (ICD-10 - M25.50) 04/16/2024 Vaginosis (ICD-10 - N76.0) 11/27/2024 Over weight (ICD-10 - E66.3) 02/06/2025 Hypothyroidism (ICD-10 - E03.9) 08/01/2024 Diabetes mellitus (ICD-10 - E11.9) 02/08/2025 Diabetes mellitus (ICD-10 - E11.9) 04/12/2024 Well woman exam with routine gynecological exam (ICD-10 - Z01.419) 12/13/2024 Over weight (ICD-10 - E66.3) 02/08/2025 Fatigue (ICD-10 - R53.83) 12/21/2024 Bipolar 1 disorder (ICD-10 - F31.9) Increase propranolol to 20 mg BID Start abilify 10 mg Abilify maintena injection on 12/2508/01/2024 Otitis media in diseases classified elsewhere, left ear (ICD-10 - H67.2) 01/04/2025 PMDD (premenstrual dysphoric disorder) (ICD-10 - F32.81) 04/05/2024 PMDD (premenstrual dysphoric disorder) (ICD-10 - F32.81) 05/12/2024 PMDD (premenstrual dysphoric disorder) (ICD-10 - F32.81) 08/30/2024 PMDD (premenstrual dysphoric disorder) (ICD-10 - F32.81) 07/27/2024 Obesity, morbid, BMI 40.0-49.9 (ICD-10 - E66.01) 11/27/2024 Sleep disorder (ICD-10 - G47.9) 11/27/2024 Obesity, unspecified classification, unspecified obesity type, unspecified whether serious comorbidity present (ICD-10 - E66.9) 08/01/2024 Hypertension (ICD-10 - I10) 04/05/2024 Bipolar 1 disorder (ICD-10 - F31.9) 05/12/2024 Bipolar 1 disorder (ICD-10 - F31.9) 08/30/2024 Bipolar 1 disorder (ICD-10 - F31.9) 12/21/2024 Over weight (ICD-10 - E66.3) 01/04/2025 Over weight (ICD-10 - E66.3) 07/27/2024 Diabetes mellitus (ICD-10 - E11.9) 02/08/2025 Lipid screening (ICD-10 - Z13.220) 07/27/2024 Hypertension (ICD-10 - I10) 04/05/2024 Nicotine dependence, unspecified, uncomplicated (ICD-10 - F17.200) 05/12/2024 Nicotine dependence, unspecified, uncomplicated (ICD-10 - F17.200) 02/08/2025 Exposure to potentia l infection (ICD-10 - Z20.9) 02/08/2025 Hypothyroidism (ICD-10 - E03.9) 02/08/2025 UTI symptoms (ICD-10 - R39.9) 02/08/2025 Vaginitis (ICD-10 - N76.0) 02/08/2025 Hypertension (ICD-10 - I10) 02/08/2025 Thrush, oral (ICD-10 - B37.0) 04/05/2024 Other Stop Effexor. Restart Zoloft. Did not like the withdrawal effects from Effexor, though it seemed to be helpful. Would like a letter on the false positive for Fentanyl being related to medication. Continue services as scheduled. Labs completed recently. May self-administer medications or be administered own oral medications per [facility] protocols. Provided informed consent with understanding of side effects, adverse effects, risks and benefits as well as alternative treatments as previously discussed and with the above recommended medications & other aspects of the treatment program. Agrees to return sooner if symptoms worsen or suicidal or homicidal ideations occur. 07/27/2024 Other Learning About the Safe Use of Antibiotics material was discussed. Pt was educated on use of antibiotic medication including dosing, side effects, adverse effects and anticipated response. Pt was also educated on importance of completing full course of treatment as ordered. Patient voiced understanding of all. 12/13/2024 Other May self-administer medications or be administered own oral medications per [facility] protocols. Provided informed consent with understanding of side effects, adverse effects, risks and benefits as well as alternative treatments as previously discussed and with the above recommended medications & other aspects of the treatment program. Agrees to return sooner if symptoms worsen or suicidal or homicidal ideations occur. Medication Hx: Abilify Effexor - withdrawals Sertraline 200 mg - reza Medication Plan: Continue Bupropion Hcl ER 150 mg, 300 mg Continue Sertraline 150 mg Continue Lurasidone 120 mg Start ziprasidone 40 mg BID Increase trazodone to 100 mg nightly Treatment Plan: Follow up: [] Rx phoned into pharmacy [x] Rx faxed/e-prescribed into pharmacy [] PDMP Reviewed [] [facility] Reviewed [] Labs ordered Encouraged by [facility]: [x] consider utilizing therapist/counselor /social security assessor/psychologist , referral given [] continue with therapist/counselor /social security assessor/psychologist Psychoeducation: Treatment options discussed in detail with patient/guardian verbalizing understanding of treatment rationales. Side effects and benefits of all medications prescribed discussed at length between psychiatric prescribing provider and patient/guardian along with the risks associated of [id number] interactions, including but not limited to prescription medications, OTC medications, vitamins, minerals and herbal supplements. Patient/Guardian and provider dialogue showcased verbalized understanding from patient on rationales of medication risk vs benefits. 12/21/2024 Other Continue other medications. May self-administer medications or be administered own oral medications per [employer] protocols. Provided informed consent with understanding of side effects, adverse effects, risks and benefits as well as alternative treatments as previously discussed and with the above recommended medications & other aspects of the treatment program. Agrees to return sooner if symptoms worsen or suicidal or homicidal ideations occur. May also contact the 24-hour crisis hotline, refer to the closest emergency room or call 911 if new symptoms arise of existing symptoms worsen. The Patient/Guardian is aware that this would apply to symptoms like: suicidal ideation, homicidal ideation, high risk behaviors, manic symptoms, psychotic symptoms, physical symptoms, or any other symptoms that may be dangerous to self or others. 04/16/2024 Other Learning About the Safe Use of Antibiotics material was discussed. Pt was educated on use of antibiotic medication including dosing, side effects, adverse effects and anticipated response. Pt was also educated on importance of completing full course of treatment as ordered. Patient voiced understanding of all. Plan Of Treatment No Information Insurance Providers Payer Name Payer Address Payer Phone Subscriber Number Group Number Insured Name Patient Relationship to Insured Coverage Start Date Coverage End Date [employer] [address] [address] [place] [address] [id number] Cris Perez Self - patient is the insured 5 MEDICAID [address] [facility] [place] [address] [id number] Cris Perez Self - patient is the insured 5 MEDICARE PART A [address] [place] [address] [id number] Cris Perez Self - patient is the insured 5 5 Medications Administered Medication Instructions Date of Administration Dosage Diagnosis (ICD Code) Notes Abilify Maintena 10/20/2021 400 mg Pa tient tolerated well. Abilify Maintena 11/19/2021 400 mg Pt bereket well. Abilify Maintena 12/25/2024 400 mg Pt bereket well. Abilify Maintena 01/29/2025 400 mg Manuf. Otsuka Pt toll well Medical (General) History Medical History History ICD Code Hashimotos Prediabetic Anxiety Dissociative identity Disorder Depression Hx of Methamphetamine use disorder Hx of abusing rx pills Manic Bipolar disorder Surgical History Surgery Date(Month/Year) Dilation & Currettage section Hospitalization History Reason Date(Month/Year) [facility] 07/30/22-08/02/22 childbirth 2016
--- OUTSIDE RECORDS SUMMARY | 2025-02-26 09:03 | XMS_ITS | Data Portability ---
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 04/16/2022 STIs/STDs Yes HPV Vaccine Y Duration of Flow (days) 6 Current Control Method Sexually Active? Y Menses Monthly Y Date of DEXA bone scan Age of first menstrual cycle 10 Date of Last Pap Smear 08/28/2021 Sexual Problems? N LMP Approximate Obstetrics History GPAL:G 6 P 2 0 3 2 Type Value Full Term 2 Induced 2 Spontaneous 1 Living 2 Total 6 Past Encounters Encounter ID Performer Location Encounter Start Date Encounter Closed Date Diagnosis/Indication Diagnosis SNOMED-CT Code Diagnosis ICD10 Code Diagnosis IMO Codes Diagnosis Note [id number] KANNAN Smart [facility] [address] [address] 07/31/2021 16:46:26 08/01/2021 10:12:15 Contraception care management 519331042 Z30.9 Patient would like ParaGuard IUD removed, it is making periods heavier and more painfulBP today 141/97, is working with PCP on HTN. No symptoms. She will call PCP to let them know what her BP is. Red flag symptoms discussed with patient and when to seek emergency care.She is not a candidate for estrogen containing BCAll progestin only methods discussedS he would like to think about her optionsRTC for ParaGuard IUD removal Time spent with the patient was 30 minutes [id number] KANNAN Smart [facility] [address] [address] 08/13/2021 16:06:01 08/13/2021 17:01:08 Removal of intrauterine device [id number] Z30.432 [facility] ion care management [id number] Z30.9 Patient would like ParaGuard IUD removed, it is making periods heavier and more painfulWas seen in ED yesterday for Chest pain, she states she had negative cardiac testing. Was told she had swollen lymph nodes, is following with her PCP on this and has been referred to a cardiologi st.She would like to use condoms for control for now.We discussed possible cramping and bleeding over the next few days. Patient informed that return to fertility is immediate. Patient encouraged to take PNV daily. She would like a referral to discuss breast reduction, as she is having back pain daily due to breast size. We discussed referral to breast surgery to find out if she is a candidate for surgery. She would need to be cleared by cardiologi st prior, patient understand s. Time spent in visit is a total of30 mins with at least 50% of visit consisting of counseling and review of plan of care. [id number] KANNAN Smart [facility] [address] [address] 08/28/2021 16:08:22 08/29/2021 11:48:48 Gynecologic examination 67188008 Z01.419 Take Calcium with Vitamin D 1200mg daily if not receiving in daily diet. It is strongly advised to have an annual flu shot and up can obtain at most pharmacies . If you have not had a TDap shot in the last 10 years you should obtain one as well. Discussed with patient & provided with informatio n regarding Gardisil vaccine to prevent the 4 strains for HPV that cause cervical cancer if under age 26. Encourage safe sexual practices, to use condoms and limit partners if not already in a monogamous relationsh ip. Do monthly self breast exams. Have mammogram yearly or every other year depending on family history. BRCA testing is now available for patients with strong genetic history of female cancer. If interested contact the office. Engage in daily exercise of low impact aerobic exercise 45-60 minutes 4-5 times weekly. Avoid tobacco and illicit drugs as well as using moderation with alcohol intake less than 1-2 8 oz beverages daily. This lifestyle behavior pattern will lead to less health conditions and longer life span. If BMI greater than 25 weight watchers or dietary consult advised. Patient received above instructio ns, and questions have been answered. If you have any questions please call or respond to this email. Patient was made aware of the patient portal and may obtain a paper copy of today's plan if desired. WWEPatient unsure of pap historyPap done todaySTI Testing declinedRe cently had the paraguard removed, periods are literacy coach/le ss painful since removalShe is in recovery for substance abuse, considerin g in the future. Is worried she will relapse. We discussed seeking therapy/co unseling, as she could benefit from this. We discussed working on healthy eating, getting adequate exercise, and weight management in preparatio n for a . Will start a daily PNVUTD with PCPRTC in 1 year for WWE or sooner if needed [id number] Hayden Gonzalez MD [facility] [address] [address] 11/28/2021 10:15:54 11/28/2021 12:16:17 Uncertain viability of [id number] O36.80X0 Z3A.00 [id number] MD Terrell Kauffman [address] [address] 05/27/2022 11:55:23 05/27/2022 13:05:55 Uncertain viability of 608424846 O36.80X0 O99.891 Z3A.01 [id number] Hayden Gonzalez MD [facility] [address] [address] 06/04/2022 13:41:40 06/04/2022 14:34:28 [id number] Stacy Beckford CNM [facility] [address] [address] 06/04/2022 13:42:40 06/05/2022 10:54:07 test positive 350226132 Z32.01 Risk factors addressed: Tobacco Cessation, Safe Sexual Practices, environmen tami, work hazards, travel restrictio ns, seat belt use.Eat a health well balanced diet, avoid alcohol, tobacco, and street drugs.Enga ge in daily low impact exercise, avoid temperatur e extremes, and cat, rodent, and bird feces.Avoi d travel to areas where zika virus is a concern.Of fered cf/sma/nip t. Handouts given and discussed with patient.Ch ildbirth classes recommende d.New OB sheet given.MFM consult for medication use, diabetes, hypertensi on.If previous , counseling .Pt verbalizes that she understand s the importance of above instructio ns.All questions were answered.P atient reminded to have annual well woman examinatio n and address preventati ve healthcare . Hypothyroi dism in 034473626 E03.9 Labs to be drawn today. Prediabetes 952086864 R7 3.03 Continue metformin, start checking blood sugars 4x per day (fbs and 1 hour after each meal). Log given. Plan to follow up in 1 week. Amenorrhea 58320874 N91. 2 Routine an tenatal care 890765747 Z34.91 Urinary symptoms 8273634 08 R39.9 Venereal d isease screening 895860473 Z11.3 [id number] Hayden Gonzalez MD [facility] [address] [address] 08/10/2022 13:49:00 08/10/2022 14:41:28 Endocrine, nutritional and metabolic disease complicating , childbirth and puerperium 586050666 O99.282 Z3A.16 [id number] Hayden Gonzalez MD [facility] [address] [address] 08/10/2022 13:49:15 08/11/2022 16:19:38 [id number] HaydenMD Terrell Nelson [address] [address] 08/20/2022 15:28:50 08/20/2022 16:43:23 Urinary symptoms 440204747 R39.9 Dysuria 43367061 R30.0 Herpes simplex 91991107 B00.9 Harmful pa ttern of use of cocaine 62952626 F14.10 [id number] MD Terrell Kauffman [address] [address] 09/14/2022 11:06:02 09/14/2022 12:16:06 Routine care 610348813 Z34.92 [id number] MD Terrell Kauffman [address] [address] 09/28/2022 10:15:04 09/28/2022 11:20:33 Chronic hypertension complicating AND/OR reason for care during 07632259 O16.9 Anxiety 54972133 F41.9 Routine an tenatal care 031125002 Z34.92 [id number] Hayden Gonzalez MD [facility] [address] [address] 10/26/2022 10:12:15 10/26/2022 11:21:52 Routine care 961794860 Z34.92 Anemia 662573655 D64.9 [id number] MD Terrell Kauffman [address] [address] 11/24/2022 11:43:09 11/24/2022 12:43:53 Polyhydramnios 61497063 O40.3XX0 O16.9 O99.283 O24.113 O99.210 O35.5XX0 Z3A.31 [id number] MD Terrell Kauffman [address] [address] 11/24/2022 11:43:35 11/24/2022 14:15:55 Polyhydramnios 53537840 O40.3XX0 O16.9 O99.283 O24.113 O99.210 O35.5XX0 Z3A.31 Gestationa l diabetes mellitus 13535372 O24.419 Chronic hy pertension complicating AND/OR reason for care during 40410576 O16.9 [id number] Hayden Gonzalez MD [facility] [address] [address] 11/27/2022 11:16:20 11/27/2022 12:12:35 Screening for drug of abuse in urine specimen positive 455785485 R82.5 Routine an tenatal care 118398442 Z34.92 [id number] Hayden Gonzalez MD [facility] [address] [address] 11/27/2022 11:16:45 11/27/2022 12:49:42 Polyhydramnios 28580459 O40.3XX0 O16.9 O99.283 O24.113 O99.210 O35.5XX0 Z3A.31 [id number] Hayden Gonzalez MD [facility] [address] [address] 12/04/2022 12:08:11 12/04/2022 13:20:42 Polyhydramnios 59411277 O40.3XX0 O16.9 O99.283 O24.113 O99.210 O35.5XX0 Z3A.31 [id number] Stacy Horner [facility] [address] [address] 12/04/2022 12:08:31 12/04/2022 13:37:25 Gestation period, 33 weeks 75354785 Z3A.33 Chronic hy pertension in obstetric context 7002351 O16.9 [id number] Hayden Gonzalez MD [facility] [address] [address] 12/08/2022 11:00:17 12/08/2022 14:51:04 Gestational diabetes mellitus 14240982 O24.419 [id number] Hayden Gonzalez MD [facility] [address] [address] 12/08/2022 11:00:30 12/08/2022 11:59:19 Chronic hypertension complicating AND/OR reason for care during 54166878 O16.9 O24.414 O99.210 O40.3XX0 O99.323 Z3A.33 Health Concerns Section Related Observation LastModified by Organization Detai ls LastModified Time None Recorded Concern Status LastModified by Organization Details LastModified Time None Recorded Advance Directives Directive None Recorded Payers Insurance Date Sequence Insurance Name Policy Number Policy Wharton Covered Member ID Wharton Member ID Guarantor Name 09/13/2024 1 [employer] (MEDICARE REPLACEMENT/AD VANTAGE - HMO) Cris Perez [id number] Cris Perez 07/06/2022 1 [facility] (MEDICAID HMO) [id number] Cris Perez [id number] Cris Perez 08/10/2022 1 [place] Cris Perez [id number] Cris Perez 08/10/2022 1 [facility] - DOS ON OR AFTER 20 (MEDICAID REPLACEMENT - HMO) Cris Perez [id number] Cris Perez 09/13/2024 1 [facility] (MEDICAID HMO) [id number] 0003 Cris Perez [id number] Cris Perez 07/20/2022 1 [facility] (HMO) [id number] Cris Perez [id number] Cris Perez Notes Date Note Type Note Provider Name and Address Organization Details Recorded Time 11/27/2022 text/html Generic HPI TemplateReported by Patient Hayden Gonzalez MD [address], [place], [address], [facility] 11/27/2022 12:12:23 12/04/2022 text/html Generic HPI TemplateReported by Patient Stacy Horner CNM [address], [place], [address], [facility] 12/04/2022 13:31:43 OBGyn Episode Ob Episode Information Episode Created Date Number of Fetuses Patient Bloodtype Patient rh Status Prepregnancy Weight lbs Domestic Partner Domestic Partner Phone Father Name Production Sorter Status 06/05/19 23 1 CLOSED Fetus Data First Name Last Name Admitted to NICU Weight (g) Sex Living Outcome Pediatric Complications Fetus ID Race Codes Race Delivery Type , Spontane ous [id number] Tony Calculation Initial Tony Date Initial Exam Date Initial Exam Provider Initial Ultrasound Date Last Menstrual Period Date Ultra Sound Weeks Gestation 0 Eighteen To Twenty Week Tony Update Ultra Sound Date Fundal Height At Umbil Quickening Date Ultra Sound Latest Weeks Gestation Final Tony Confirmed By Final Tony Confirmed Date Final Tony Date Ultra Sound Latest Days Gestation 0 0 Menstrual History Last Menstrual Date Menses Monthly On Bcp Conception Prior Menses Frequency Hcg Plus Date Menarche Onset Age Delivery Information Delivery Date Delivery Type Labor Anesthesia Weeks Gestation Incision Type Labor Labor Length Hrs Delivered By Post Complications Tubal Sterilization Discharge Date Comments 1 Discharge Information Feeding Method Contraceptive Method Maternal HG B and HCT Levels Ob Episode Information Episode Created Date Number of Fetuses Patient Bloodtype Patient rh Status Prepregnancy Weight lbs Domestic Partner Domestic Partner Phone Father Name Production Sorter Status 06/05/19 23 1 CLOSED Fetus Data First Name Last Name Admitted to NICU Weight (g) Sex Living Outcome Pediatric Complications Fetus ID Race Codes Race Delivery Type , Induced Tony Calculation Initial Tony Date Initial Exam Date Initial Exam Provider Initial Ultrasound Date Last Menstrual Period Date Ultra Sound Weeks Gestation 0 Eighteen To Twenty Week Tony Update Ultra Sound Date Fundal Height At Umbil Quickening Date Ultra Sound Latest Weeks Gestation Final Tony Confirmed By Final Tony Confirmed Date Final Tony Date Ultra Sound Latest Days Gestation 0 0 Menstrual History Last Menstrual Date Menses Monthly On Bcp Conception Prior Menses Frequency Hcg Plus Date Menarche Onset Age Delivery Information Delivery Date Delivery Type Labor Anesthesia Weeks Gestation Incision Type Labor Labor Length Hrs Delivered By Post Complications Tubal Sterilization Discharge Date Comments 2 Discharge Information Feeding Method Contraceptive Method Maternal HG B and HCT Levels Ob Episode Information Episode Created Date Number of Fetuses Patient Bloodtype Patient rh Status Prepregnancy Weight lbs Domestic Partner Domestic Partner Phone Father Name Production Sorter Status 06/05/19 23 1 CLOSED Fetus Data First Name Last Name Admitted to NICU Weight (g) Sex Living Outcome Pediatric Complications Fetus ID Race Codes Race Delivery Type , Induced [id number] Tony Calculation Initial Tony Date Initial Exam Date Initial Exam Provider Initial Ultrasound Date Last Menstrual Period Date Ultra Sound Weeks Gestation 0 Eighteen To Twenty Week Tony Update Ultra Sound Date Fundal Height At Umbil Quickening Date Ultra Sound Latest Weeks Gestation Final Tony Confirmed By Final Tony Confirmed Date Final Tony Date Ultra Sound Latest Days Gestation 0 0 Menstrual History Last Menstrual Date Menses Monthly On Bcp Conception Prior Menses Frequency Hcg Plus Date Menarche Onset Age Delivery Information Delivery Date Delivery Type Labor Anesthesia Weeks Gestation Incision Type Labor Labor Length Hrs Delivered By Post Complications Tubal Sterilization Discharge Date Comments 8 Discharge Information Feeding Method Contraceptive Method Maternal HG B and HCT Levels Ob Episode Information Episode Created Date Number of Fetuses Patient Bloodtype Patient rh Status Prepregnancy Weight lbs Domestic Partner Domestic Partner Phone Father Name Production Sorter Status 06/05/19 23 1 CLOSED Fetus Data First Name Last Name Admitted to NICU Weight (g) Sex Living Outcome Pediatric Complications Fetus ID Race Codes Race Delivery Type 3175.14 4 F Prematur e 11950 Vaginal Delivery Tony Calculation Initial Tony Date Initial Exam Date Initial Exam Provider Initial Ultrasound Date Last Menstrual Period Date Ultra Sound Weeks Gestation 0 Eighteen To Twenty Week Tony Update Ultra Sound Date Fundal Height At Umbil Quickening Date Ultra Sound Latest Weeks Gestation Final Tony Confirmed By Final Tony Confirmed Date Final Tony Date Ultra Sound Latest Days Gestation 0 0 Menstrual History Last Menstrual Date Menses Monthly On Bcp Conception Prior Menses Frequency Hcg Plus Date Menarche Onset Age Delivery Information Delivery Date Delivery Type Labor Anesthesia Weeks Gestation Incision Type Labor Labor Length Hrs Delivered By Post Complications Tubal Sterilization Discharge Date Comments 6 40 true preclamp s ia / GHTN Discharge Information Feeding Method Contraceptive Method Maternal HG B and HCT Levels Ob Episode Information Episode Created Date Number of Fetuses Patient Bloodtype Patient rh Status Prepregnancy Weight lbs Domestic Partner Domestic Partner Phone Father Name Production Sorter Status 06/05/19 23 1 CLOSED Fetus Data First Name Last Name Admitted to NICU Weight (g) Sex Living Outcome Pediatric Complications Fetus ID Race Codes Race Delivery Type 3486.76 1704 M [place] [address]6534 Vaginal Delivery Tony Calculation Initial Tony Date Initial Exam Date Initial Exam Provider Initial Ultrasound Date Last Menstrual Period Date Ultra Sound Weeks Gestation 0 Eighteen To Twenty Week Tony Update Ultra Sound Date Fundal Height At Umbil Quickening Date Ultra Sound Latest Weeks Gestation Final Tony Confirmed By Final Tony Confirmed Date Final Tony Date Ultra Sound Latest Days Gestation 0 0 Menstrual History Last Menstrual Date Menses Monthly On Bcp Conception Prior Menses Frequency Hcg Plus Date Menarche Onset Age Delivery Information Delivery Date Delivery Type Labor Anesthesia Weeks Gestation Incision Type Labor Labor Length Hrs Delivered By Post Complications Tubal Sterilization Discharge Date Comments 2 40 true preeclmp s ia / HTN Discharge Information Feeding Method Contraceptive Method Maternal HG B and HCT Levels Ob Episode Information Episode Created Date Number of Fetuses Patient Bloodtype Patient rh Status Prepregnancy Weight lbs Domestic Partner Domestic Partner Phone Father Name Production Sorter Status 08/11/19 23 1 O Negative 244 CLOSED Fetus Data First Name Last Name Admitted to NICU Weight (g) Sex Living Outcome Pediatric Complications Fetus ID Race Codes Race Delivery Type Problems Problem Notes [facility] Appts: 10/19 (u/s reque sted 11/02), 11/02 (u/s requested), 11/17 u/s and MD visit (CONSULT IN CHART WITH RECOMMENDATIONS), 12/15 U/S & OVPt was fired from [facility] 10/05 r/t verbal outburst with Dr. Jaramillo and pt had to be escorted from building. Will fax new referral to [facility] to continue high risk care. [facility] consult note in chart from 10/19 visit!Hypothyroidism: M to manage & to see [facility] to follow, current guide travel resigned. monitor every 4-6 wks. On 50mcg Tirosint 11/12/22DM: BS QID, [facility] already caring for pt in and has been. Problem Name Start Date End Date Resolution Snomed Code Not e Large for gestation age fetus 961609107 Harmful pattern of use of cocaine 17545533 12/04 UDS + THC & Cocaine. At [facility]- trying to get into a program. pt states has only used 3 times during - 12/08/22 BW, RN Marijuana user 889246691 Heavy use, she states all day. Past history of pre-eclampsia 06/04/2022 [id number] Baseline labs WNL Bipolar disorder 21428753 Con tinue meds/psych per [facility] Depressive disorder 48779386 Chronic hypertension in obstetric context 4213095 procard ia - 60mg xl - delivery at 37/38wks per [facility] 100mg labetaol at hs Gestational diabetes mellitus 85249687 12u NPH am, 16u NPH qh- [facility] managing Hypothyroidism 75951199 [facility] - Alternate tirosint 50mcg with 75mcg every-other day. recommend TSH in 4 weeks (11/16/22) Polyhydramnios 10/19/2022 35612173 CESAR 42 - rpt with [facility] schd. Twice weekly testing @ 32wks RhD negative 810262478 Rhogam given 11/15/22 Tony Calculation Initial Tony Date Initial Exam Date Initial Exam Provider Initial Ultrasound Date Last Menstrual Period Date Ultra Sound Weeks Gestation 01/21/2023 08/10/2022 05/27/2022 04/16/2022 6 Eighteen To Twenty Week Tony Update Ultra Sound Date Fundal Height At Umbil Quickening Date Ultra Sound Latest Weeks Gestation Final Tony Confirmed By Final Tony Confirmed Date Final Tony Date Ultra Sound Latest Days Gestation 0 [email or web address] 08/12/2022 01/22/20 23 0 Pre- Flowsheet Flowsheet Date 08/10/2022 Duarte Score Blood Edema Fundus Height Fundus Units Glucose Ketones Leukocytes Nitrite Labor Signs Protein Cervic Dilation Cervic Effacement Cervic Station Type Weight in lbs Pre/Post Dialysis Refused BP Diastolic BP Location Tested BP Systolic BP Type Fetus Heart Rate Present Fetus Movement Comments Flowsheet Date 08/10/2022 Duarte Score Blood Edema Fundus Height Fundus Units Glucose Ketones Leukocytes Nitrite Labor Signs Protein Cervic Dilation Cervic Effacement Cervic Station 16 Type Weight in lbs Pre/Post Dialysis Refused Weight 238.718233242422 BP Diastolic BP Location Tested BP Systolic BP Type 89 R arm 143 sitting Fetus Heart Rate Present A 145 Fetus Movement Comments 27-year-old 6 para 2 032 at 16 weeks gestation presents for initial care. She has a history preeclampsia. and 2 vaginal deliveries. she has a complex history to of psychiatric illness, blood pressure concerns and prediabetes. She is multiple medications. Discussed care in detail. She again routine care. M consult to follow-up. Flowsheet Date 08/20/2022 Duarte Score Blood Edema Fundus Height Fundus Units Glucose Ketones Leukocytes Nitrite Labor Signs Protein Cervic Dilation Cervic Effacement Cervic Station 18 Type Weight in lbs Pre/Post Dialysis Refused Weight 237.911953500903 BP Diastolic BP Location Tested BP Systolic BP Type 80 R arm 128 sitting Fetus Heart Rate Present A 145 Fetus Movement Comments patient presents for dysuria . She has some leukocytes in her urine. We will culture and treat. Reports using cocaine recently. She was smoking cocaine. Patient is having heart palpitations. She is also using marijuana regularly. She is trying to quit. She is seeking outpatient help for drug abuse. to treat for urinary tract infection. Examined for herpes lesion, a nonvisualized. Flowsheet Date 09/14/2022 Duarte Score Blood Edema Fundus Height Fundus Units Glucose Ketones Leukocytes Nitrite Labor Signs Protein Cervic Dilation Cervic Effacement Cervic Station 21 none trace Type Weight in lbs Pre/Post Dialysis Refused Weight 236.260526350557 BP Diastolic BP Location Tested BP Systolic BP Type 86 R arm 144 sitting 84 L arm 124 sitting Fetus Heart Rate Present A 151 Fetus Movement Comments getting baseline labs today, 24 hour urine, needs cardiology consult on EKG still, Flowsheet Date 09/28/2022 Duarte Score Blood Edema Fundus Height Fundus Units Glucose Ketones Leukocytes Nitrite Labor Signs Protein Cervic Dilation Cervic Effacement Cervic Station 23 Type Weight in lbs Pre/Post Dialysis Refused Weight 240.687537644250 BP Diastolic BP Location Tested BP Systolic BP Type 82 R arm 133 sitting Fetus Heart Rate Present A 140 Fetus Movement A Yes Comments seeing MFM for diabetes, chris ointment next week, prescribed nifedipine for chronic hypertension, nifedipine refill, blood pressure is well controlled, given order for [facility] today, cocaine abuse stable Flowsheet Date 10/26/2022 Duarte Score Blood Edema Fundus Height Fundus Units Glucose Ketones Leukocytes Nitrite Labor Signs Protein Cervic Dilation Cervic Effacement Cervic Station 27 none trace Type Weight in lbs Pre/Post Dialysis Refused Weight [phone] BP Diastolic BP Location Tested BP Systolic BP Type 82 R arm 130 sitting Fetus Heart Rate Present A 145 Fetus Movement A Yes Comments MFM managing blood sugars, m ood is stable, patient complains of severe fatigue. To check CBC and iron profile, heavy marijuana use. Flowsheet Date 11/24/2022 Duarte Score Blood Edema Fundus Height Fundus Units Glucose Ketones Leukocytes Nitrite Labor Signs Protein Cervic Dilation Cervic Effacement Cervic Station Type Weight in lbs Pre/Post Dialysis Refused Weight 244.651632476192 BP Diastolic BP Location Tested BP Systolic BP Type 91 138 Fetus Heart Rate Present Fetus Movement Comments Flowsheet Date 11/24/2022 Duarte Score Blood Edema Fundus Height Fundus Units Glucose Ketones Leukocytes Nitrite Labor Signs Protein Cervic Dilation Cervic Effacement Cervic Station Type Weight in lbs Pre/Post Dialysis Refused BP Diastolic BP Location Tested BP Systolic BP Type Fetus Heart Rate Present Fetus Movement Comments Flowsheet Date 11/27/2022 Duarte Score Blood Edema Fundus Height Fundus Units Glucose Ketones Leukocytes Nitrite Labor Signs Protein Cervic Dilation Cervic Effacement Cervic Station 34 none trace Type Weight in lbs Pre/Post Dialysis Refused Weight 250.678166710142 BP Diastolic BP Location Tested BP Systolic BP Type 92 R arm 134 sitting Fetus Heart Rate Present A 145 Fetus Movement A Yes Comments recent episode of elevated b lood pressures, seen in Labor and delivery, labetalol was added, blood sugars management MFM. Stable psych conditions, thyroid meds changed MFM, discussed delivery at 38 weeks Flowsheet Date 11/27/2022 Duarte Score Blood Edema Fundus Height Fundus Units Glucose Ketones Leukocytes Nitrite Labor Signs Protein Cervic Dilation Cervic Effacement Cervic Station Type Weight in lbs Pre/Post Dialysis Refused BP Diastolic BP Location Tested BP Systolic BP Type Fetus Heart Rate Present Fetus Movement Comments Flowsheet Date 12/04/2022 Duarte Score Blood Edema Fundus Height Fundus Units Glucose Ketones Leukocytes Nitrite Labor Signs Protein Cervic Dilation Cervic Effacement Cervic Station Type Weight in lbs Pre/Post Dialysis Refused BP Diastolic BP Location Tested BP Systolic BP Type Fetus Heart Rate Present Fetus Movement Comments Flowsheet Date 12/04/2022 Duarte Score Blood Edema Fundus Height Fundus Units Glucose Ketones Leukocytes Nitrite Labor Signs Protein Cervic Dilation Cervic Effacement Cervic Station neg trace none trace Type Weight in lbs Pre/Post Dialysis Refused Weight [id number] BP Diastolic BP Location Tested BP Systolic BP Type 87 135 Fetus Heart Rate Present Fetus Movement A Yes Comments patient is having some swell ing, nausea and vomiting. + cocaine and THC today, nst R, admits to not checking blood sugars very frequently but says they are normal, discussed HTN, bp's better in the evening with labetalol 100mg at hs, cont to monitor, sxs and precautions reviewed f/u next week Flowsheet Date 12/08/2022 Duarte Score Blood Edema Fundus Height Fundus Units Glucose Ketones Leukocytes Nitrite Labor Signs Protein Cervic Dilation Cervic Effacement Cervic Station Type Weight in lbs Pre/Post Dialysis Refused BP Diastolic BP Location Tested BP Systolic BP Type Fetus Heart Rate Present Fetus Movement Comments Flowsheet Date 12/08/2022 Duarte Score Blood Edema Fundus Height Fundus Units Glucose Ketones Leukocytes Nitrite Labor Signs Protein Cervic Dilation Cervic Effacement Cervic Station Type Weight in lbs Pre/Post Dialysis Refused BP Diastolic BP Location Tested BP Systolic BP Type Fetus Heart Rate Present Fetus Movement Comments Menstrual History Last Menstrual Date Menses Monthly On Bcp Conception Prior Menses Frequency Hcg Plus Date Menarche Onset Age 0204/16/2022 Genetic Screening And Infection History Question Response Note Mental Retardation/Autism false Patient's Age Will Be 35 Years Or Older At Estim ated Date of Delivery false Thalassemia ([place]er, Persian, Mediterranean, Or Background): MCV < 80 false Neural Tube Defect (Meningomyelocele, Spina Bifi da, Or Anencephaly) false Congenital Heart Defect false Down Syndrome false [place] (eg, Baptist, [place], [place]) f alse [place] Disease false Sickle Cell Disease Or Trait () false Hemophilia Or Other Blood Disorders false Muscular Dystrophy false Cystic Fibrosis false [place] false Intellectual Disability/Autism false If Yes, Was Person Tested For Fragile X? false Other Inherited Genetic Or Chromosomal Disorder false Maternal Metabolic Disorder (eg, Type 1 Diabetes , PKU) false Patient Or Baby's Father Had A Child With Defects Not Listed Above false Recurrent Loss, Or A Stillbirth false Medications (including Suppl ements, Vitamins, Herbs, OTC Drugs), Illicit/Recreational Drugs, Alcohol false If Yes, Agent(s) And Strength/Dosage false Any Other Genetic History false Live With Someone With TB Or Exposed To TB false Patient Or Partner Has History Of Genital Herpes false Rash Or Viral Illness Since Last Menstrual Perio d false History Of STD, Gonorrhea, Chlamydia, HPV, Syphi lis false Other Infection History false History of HIV false History of Hepatitis false Prior GBS-infected child false Hemoglobinopathy Or Carrier false Other Structural Defect false Recent Travel History Outside of Country false Delivery Information Delivery Date Delivery Type Labor Anesthesia Weeks Gestation Incision Type Labor Labor Length Hrs Delivered By Post Complications Tubal Sterilization Discharge Date Comments Discharge Information Feeding Method Contraceptive Method Maternal HG B and HCT Levels
--- OUTSIDE RECORDS SUMMARY | 2025-02-26 09:03 | XMS_ITS | Clinical Summary ---
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 The patient has the following MAJOR risk factors BMI >/= 40 and the following MINOR risk factors preeclampsia and parity >/=3. enoxaparin 40 mg BID ordered for VTE prophylaxis. # Disposition: Follow up task sent to [facility] scheduling pool. Desires discharge home today. Polyhydramnios, mild 10/19/2022 023 Overview (01/01/2023): History US 10/19: severe polyhydramnios with CESAR 42 cm and DVP 13 cm. US 11/02: CESAR 24.4 cm Continues to have poly S/p counseling Recommendations - growth ultrasounds q4 weeks - surveillance per CHTN and diabetes plan Assessment & Plan (11/03/2022 1:39 PM CDT): Mild polyhydramnios today. Discussed with patient. Likely idiopathic vs. related to insulin resistance. Will continue to monitor during growth US for now. Assessment & Plan (10/19/2022 4:19 PM CDT): History New diagnosis of severe polyhydramnios with CESAR 42 cm and DVP 13 cm. Counseling We discussed the US findings today of severe polyhydramnios. We also discussed the implications of polyhydramnios in . Polyhydramnios can be caused by diabetes, neurological disorders, musculoskeletal disorders, GI malformations, or can be idiopathic. She has had an otherwise normal anatomy assessment though the anatomy was limited today by positioning. Of note, she does have a diagnosis of diabetes with unclear control, though her HbA1c is very reasonable and was most recently 5.2% (09/2022). We reviewed that the etiology of the polyhydramnios may be driven by diabetes, though this level of polyhydramnios is not generally associated with diabetes. We discussed that the abnormal fluid may be idiopathic, however ultrasound may not detect all abnormalities that could be causing the polyhydramnios. Polyhydramnios may increase the risk of contractions, PPROM, delivery and malpresentation. We discussed our recommendation for close follow up of growth and wellbeing with surveillance. Of note, severe polyhydramnios has a 20-40% risk of anomalies and a 10% risk of abnormalities. If severe polyhydramnios persists despite better understanding of glycemic control, we would recommend delivery at a tertiary care center due to the high risk of / anomalies. Further, if this is driven by glycemic control the would be at increased risk of hypoglycemia and need for NICU admission for glycemic control. Recommendations [] Anatomy completion in 2 weeks with re-evaluation of fluid measurement [] Growth ultrasounds q4 weeks [] surveillance with twice weekly NST with weekly CESAR [] If severe polyhydramnios persists, would recommend delivery at a tertiary care center Obesity complicating pregnan cy in second trimester 10/18/2022 02/18/2023 Overview (10/19/2022): History Ms. Perez had a pre- BMI 35-39.9. Current BMI is 39.6. Counseling Completed by TRACIE 10/19/2022. Recommendations [x] surveillance based on DM/cHTN problems [x] Low-dose ASA - not taking [x] Recommend weight-neutral to max of ~11 lb weight gain Assessment & Plan (10/19/2022 4:36 PM CDT): History Ms. Perez had a pre- BMI 35-39.9. Current BMI is 39.6. Counseling We discussed the risks associated with obesity, including preeclampsia, gestational diabetes, delivery, growth abnormalities (FGR and macrosomia), and stillbirth. We would recommend a specialized anatomic survey, serial growth assessment, and surveillance. Aspirin 81mg should be started after 12 weeks to decrease the risk of preeclampsia. Recommendations [x] surveillance based on DM/cHTN problems [x] Low-dose ASA - not taking [x] Recommend weight-neutral to max of ~11 lb weight gain Large for gestational age fe tus affecting management of mother 10/18/2022 02/18/2023 Overview (01/04/2023): History Noted to have LGA at scan through primary OB. EFW 1411g (>99%) with AC >99%ile on 10/19/2022. Counseling 10/19/2022 and 01/04/2023 Last growth 12/15/22: EFW 3,125g (96%), AC >99%- last growth <4 weeks between growth and delivery. If inpatient team has concerns for size could consider growth upon admission. Recommendations [x] Continue serial growth ultrasounds q4 weeks [x] surveillance recommended, as above [x] Delivery counseling- Reviewed risks of LGA growth including increased risk for C/S delivery, operative delivery and shoulder dystocia and discussed risks of all three. Reviewed increased risk of hemorrhage and hypoglycemia. Assessment & Plan (10/19/2022 4:43 PM CDT): History Noted to have LGA at scan through primary OB. EFW 1411g (>99%) with AC >99%ile on 10/19/2022. Counseling We briefly discussed that fetuses that are LGA may have increased risk of complications including trauma and risk of shoulder dystocia. There may also be an increased risk of delivery. Given her diagnosis of diabetes in , we would recommend discussion of a delivery if EFW is >4500g at the time of delivery to attempt avoidance of these complications. LGA in the setting of diabetes is also concerning for effects of uncontrolled diabetes, which places her at an increased risk of stillbirth, which was discussed today. Neonates that are LGA are also at increased risk of hypoglycemia and hyperbilirubinemia following delivery. Recommendations [x] Continue serial growth ultrasounds q4 weeks [x] surveillance recommended, as above [] If EFW >4500g at the time of delivery, discuss delivery Chronic hypertension affecting 10/15/2022 02/18/2023 Overview (01/01/2023): History Ms. Perez has a history of hypertension for which she previously has take amlodipine. Previously counseled Current regimen: 12/15/2022 Nifedipine 60mg BID and labetalol 200mg TID BP cuff x2 unable to be validated 12/15/2022, after extensive counseling plan for 2x/weekly BP monitoring in the office with close monitoring of patients symptoms. Recommendations [x] Baseline PIH labs: Plt 314, Cr 0.6, AST 28, ALT 32, 24-hour urine protein 184 [x] Repeat labs at [facility] 11/21: WNL, in the media tab [x] EKG [x] Eye exam - reports has referral, just needs to schedule [x] ASA - not taking, discussed the R/B of initiating at 26w for preeclampsia prevention, will continue to not take [x] Anatomy US - completed - Serial growth US - q4 weeks recommended - surveillance starting at 32 weeks - Delivery at 38 weeks given cHTN with use of antihypertensive agent- MFM RN to arrange Assessment & Plan (01/01/2023 1:31 PM CDT): BP wnl today. Asymptomatic but occasionally has headaches. Will do preE labs today because she is unable to reliably monitor her Bps at home. Continue close survenllence. [facility] precautions reviewed. Assessment & Plan (12/29/2022 1:11 PM CDT): Continue close monitoring. preE precautions reviewed. Assessment & Plan (11/17/2022 3:02 PM CDT): Strict hospital precautions reviewed for symptoms of preE and Bps >150/100. [facility] for r/o preE. Assessment & Plan (11/03/2022 1:33 PM CDT): Normotensive today Assessment & Plan (10/19/2022 4:35 PM CDT): History Ms. Perez has a history of hypertension for which she previously has taken amlodipine. Current regimen: Nifedipine 60mg qD. (10/19/2022) Counseling We discussed the effects of chronic hypertension on including the risk of worsening blood pressures requiring titration of antihypertensive therapy, increased risk of preeclampsia, growth restriction, and need for delivery with associated complications of prematurity. Rates of abruption and stillbirth are also higher in women with chronic hypertension. Specifically, we discussed that hypertension is associated with development of superimposed pre-eclampsia in approximately 25% of patients, which can result in iatrogenic delivery in up to 30% of women with mild chronic hypertension. Baseline pre-eclampsia labs (CBC, creatinine, BUN, AST, ALT, LDH) have already been completed for Ms. Perez. A workup for end organ damage is also recommended, including an EKG and 24-hour urine for protein - she is scheduled for an EKG this week and she has already completed a 24-hour urine protein evaluation. A fundoscopic exam by ophthalmology is recommended as well, if one has not been performed within 12 months; she reports that she has a referral and needs to make an appointment. A low-dose aspirin is recommended at 12 weeks for preeclampsia prophylaxis; Ms Perez has not been taking this medication thusfar. Precautions (headache, scotomata, epigastric pain) were reviewed. We reviewed the natural course of blood pressures in , that usually patients experience a decrease in systemic pressure in the first trimester and a gradual rise starting around 28 weeks back to their baseline by the third trimester. This decline in blood pressure does not always occur in women with chronic hypertension. We also reviewed the goals of antihypertensive therapy in . Specifically, the goal is to avoid severe hypertension which can result in maternal cerebrovascular accidents or coronary events. We generally recommend home blood pressure monitoring to assist with medication titration as well as to monitor her for the development of preeclampsia. We reviewed the relative safety of various antihypertensive classes of medications during , and her current medication nifedipine is considered safe in . Finally, we discussed the recommendation for increased antepartum surveillance in patients with chronic hypertension. Given the increased risk of FGR, serial monthly growth scans are recommended starting at 24-26 weeks, with surveillance starting at 32 weeks. Delivery at 38 weeks is recommended given her use of an antihypertensive agent, although we discussed the possibility of earlier delivery for uncontrolled hypertension or preeclampsia. Recommendations [x] Baseline PIH labs: Plt 314, Cr 0.6, AST 28, ALT 32, 24-hour urine protein 184 [] EKG - has scheduled with primary OB on 10/22/2022 [] Eye exam - reports has referral, just needs to schedule [x] ASA - not taking, discussed the R/B of initiating at 26w for preeclampsia prevention, will continue to not take [] Anatomy US - incomplete 10/19/2022, to return in 2 weeks for completion [] Serial growth US - q4 weeks recommended [] surveillance starting at 32 weeks [] Delivery at 38 weeks given cHTN with use of antihypertensive agent History of pre-eclampsia in prior , currently in second trimester 10/15/2022 1 04/21/2022 Overview (11/17/2022): History Ms. Perez has a history of preeclampsia in both of her prior pregnancies at term. Counseling Completed by Ramonita 10/19/2022. Recommendations [x] Baseline PIH labs: Plt 314, Cr 0.6, AST 28, ALT 32, 24 hour urine protein 184 [x] Low dose ASA - not taking Assessment & Plan (10/19/2022 4:41 PM CDT): History Ms. Perez has a history of preeclampsia in both of her prior pregnancies at term. Counseling We discussed that given her history of preeclampsia in a prior , she is at increased risk of developing preeclampsia in this . We reviewed preeclampsia and associated adverse outcomes including poor growth, hepatic or renal dysfunction, progression to eclampsia, increased risk of PTD (iatrogenic) and need for CS. Some studies have suggested at a daily bASA throughout may modestly decrease the risk of recurrent preeclampsia, especially in those patients with early onset severe preeclampsia. She has already been started on a bASA. She has also had baseline preeclampsia labs including a 24 hr urine protein collection. We would recommend close monitoring of BPs, urine dips and preeclampsia symptoms throughout . Recommendations [x] Baseline PIH labs: Plt 314, Cr 0.6, AST 28, ALT 32, 24 hour urine protein 184 [x] Low dose ASA - not taking [] Monitor closely for s/sx of PIH Rh negative state in antepar tunde period, second trimester 10/15/2022 02/18/2023 Overview (11/17/2022): Recommendations [x] Rhogam at 28 weeks Assessment & Plan (10/19/2022 4:34 PM CDT): Recommendations [] Rhogam at 28 weeks, would like to have with MFM visit 11/02/2022 Supervision of high-risk pre gnancy, second trimester 10/15/2022 02/18/2023 Overview (01/04/2023): [x] Full MFM [x] Blue Team - Email sent for global 12/15.. bnw Referring Provider: Hayden Gonzalez [phone] [] or Medicare Insurance [x] Dating Criteria: LMP 04/16/22 with JESSICA 01/21/23 [x] Labs: Rh [O-], Ab [negative], Rubella [immune], HIV [non-reactive], HepBSAg [non-reactive], RPR [non-reactive], Hep C [non-reactive], Varicella [not done], GC/CT [negative/negative] [x] Genetic Screening: NIPT low risk, Carrier Screen: negative [x] CBC/Hgb 12.5/38.3/plt 323 [x] Early 1hr GTT (if indicated): not indicated, has T2DM vs GDMA2 [x] UCx: 06/04/22 negative [x] Pap: 08/28/21: NILM [x] LD ASA (if indicated) starting at 12 weeks: not taking [] EPDS [ ]; PNB[facility] referral (if indicated) 2nd Tri Labs: [x] Anatomy ultrasound: completed 11/02 [x] CBC/1hr gtt at 24-28wks: 10/26/22: 12.4/40.1/plt 327 [x] Flu Shot (Nov-Feb): 12/15/2022 [x] Tdap (27-36wks): 12/15/2022 [x] Rhogam at 28 wks (if Rh neg): received with primary 3rd Tri Labs: [x] CBC: 11.8/36.0/331K HIV: Reactive- differentiation: NR RPR: NR [x] GBS: POSITIVE [x] surveillance: 2x/weekly testing Counseling [x] MOD: IOL scheduled for 01/06/23 at 2300- letter sent [x] Place of delivery: [facility] [x] Last clinic visit SVE: 1.5/2/-3 [x] IOL start agent: cook + possibly Cytotec [x] Epidural: desires [] Consents signed: upon admission [x] MOC: likely copper IUD [x] Method of feeding: breast [x] Disability Representative: [x] PP Depression Discussed: pt has a history of pp depression with her last delivery. States meds and therapy were not helpful and that is when she eventually started using meth. Will need close follow up pp. Assessment & Plan (10/19/2022 4:44 PM CDT): [x] Co-management vs. [] Full MFM Care; [] Red Team [x] Blue Team Referring Provider: Hayden Gonzalez [phone] [] or Medicare Insurance [x] Dating Criteria: LMP 04/16/22 with JESSICA 01/21/23 [x] Labs: Rh [O-], Ab [negative], Rubella [immune], HIV [non-reactive], HepBSAg [non-reactive], RPR [non-reactive], Hep C [non-reactive], Varicella [not done], GC/CT [negative/negative] [x] Genetic Screening: NIPT low risk, Carrier Screen: negative [x] CBC/Hgb 12.5/38.3/plt 323 [x] Early 1hr GTT (if indicated): not indicated, has T2DM vs GDMA2 [x] UCx: 06/04/22 negative [x] Pap: 08/28/21: NILM [x] LD ASA (if indicated) starting at 12 weeks: not taking [] EPDS [ ]; PNBHS referral (if indicated) 2nd Tri Labs: [] Anatomy ultrasound: incomplete on 10/19/2022 > completion scheduled for 11/02/2022 [] CBC/1hr gtt at 24-28wks: [] Flu Shot (Nov-Feb): [] Tdap (27-36wks): [] Rhogam at 28 wks (if Rh neg): needs on 11/02/2022 3rd Tri Labs: [] CBC/HIV/RPR/T&S: [] GBS: [] GC/CT (if indicated): [x] surveillance: recommended to start at 32 weeks Counseling [] MOD: [] Place of delivery: [] Last clinic visit SVE: [] IOL start agent: [] Epidural: [] Consents signed: [] MOC: [] Method of feeding: [] Disability Representative: [] PP Depression Discussed Gestational diabetes mellitus (GDM) 07/31/2022 02/18/2023 Overview (01/01/2023): 12u NPH am, 16u NPH q- [facility] managing Immunizations Immunization Administration Dates Next Due DTP 01/19/1996 HPV, Quadrivalent 01/11/2009 Hep B, Adolescent or Pediatric 01/19/1996 Influenza, Quadrivalent, Monica l Culture-based MDCK, Preservative Free, Antibiotic Free, Intramuscular 12/15/2022 Influenza, Quadrivalent, Spl it, Preservative Free, Intramuscular 01/24/2015 MMR 01/09/2023(Deferred: No longer needed),01/19/1996 Rho (D) Immune Globulin 04/09/2015,01/24/2015 Tdap 12/15/2022,01/24/2015 Tetanus Toxoid, Unspecified 03/08/2016 Varicella 01/09/2023(Deferred: No longer n eeded) Surgical History Surgery Date Site/Laterality Comments DILATION AND CURETTAGE OF UTERUS 03/08/2017 - 03/07/2018 DILATION AND CURETTAGE OF UTERUS 03/08/2021 - 03/07/2022 Medical History Medical History Date Comments Zabrina's disease Chronic hypertension Obesity (BMI 30-39.9) Gestational diabetes Bipolar 1 disorder (HCC) Herpes genitalis in women Family History Medical History Relation Name Comments Alcohol abuse Maternal Grandmother Depression Maternal Grandmother Drug abuse Maternal Grandmother Rashes / Skin problems Maternal Grandmother ADD / ADHD Mother Alcohol abuse Mother Bipolar disorder Mother Drug abuse Mother Migraines Mother Rheum arthritis Mother Alcohol abuse Sister Depression Sister Drug abuse Sister Migraines Sister Relation Name Status Comments Maternal Grandmother Mother Sister Social History Tobacco Use Types Packs/Day Years Used Date Smoking Tobacco: Former Smokeless Tobacco: Never Tobacco Cessation:Counseling Given: No Alcohol Use Standard Drinks/Week Comments Yes 0 (1 standard drink = 0.6 oz pur e alcohol) Social Connection and Isolation Panel Answer Date Recorded In a typical week, how many times do you talk on the phone with family, friends, or neighbors? More than three times a week 01/08/2023 How often do you get togethe r with friends or relatives? More than three times a week 01/08/2023 How often do you attend chur ch or gnosticist services? More than 4 times per year 01/08/2023 Do you belong to any clubs o r organizations such as synagogue groups, unions, fraternal or athletic groups, or school groups? No 01/08/2023 How often do you attend meet ings of the clubs or organizations you belong to? Never 01/08/2023 Are you , , di vorced, , never , or living with a partner? Never 01/08/2023 AUDIT-C Answer Date Recorded Frequency of Alcohol Consumption Never 12/28/2018 Average Number of Drinks Not on file 019 Frequency of Binge Drinking Not on file 12/07 Overall Financial Resource Strain (CARDIA) Answe r Date Recorded How hard is it for you to pa y for the very basics like food, housing, medical care, and heating? Somewhat hard 01/08/2023 [facility] [place] [facility] - Occupational Stress Questionnaire Answer Date Recorded Do you feel stress - tense, restless, nervous, or anxious, or unable to sleep at night because your mind is troubled all the time - these days? Only a little 11/17/2022 Hunger Vital Sign Answer Date Recorded Within the past 12 months, y ou worried that your food would run out before you got the money to buy more. Never true 01/09/20 23 Within the past 12 months, t he food you bought just didn't last and you didn't have money to get more. Never true 01/08/2023 PRAPARE - Transportation Answer Date Re corded In the past 12 months, has l ack of transportation kept you from medical appointments or from getting medications? No 05/2022 In the past 12 months, has l ack of transportation kept you from meetings, work, or from getting things needed for daily living? No 01/08/2023 Housing Stability Vital Sign Answer Clayton e Recorded In the last 12 months, was t here a time when you were not able to pay the mortgage or rent on time? No 01/08/2023 In the last 12 months, how many places have you lived? 1 01/08/2023 In the last 12 months, was t here a time when you did not have a steady place to sleep or slept in a care home (including now)? Yes 01/08/2023 [place] Depression Scale Answer Date Recorded [place] Depression Scale Total 6 02/18/2023 The thought of harming myself has occurred to me . Never 02/18/2023 Personal Safety Answer Date Recorded Have you ever been in or are you currently in a harmful physical or emotional relationship or is someone making you feel afraid or unsafe? Denies 01/07/2023 Comments Unknown Sex and Gender Information Value Date Recorded Sex Assigned at Not on file Legal Sex Female 8:06 PM [employer] IN[employer] Gender Identity Not on file Sexual Orientation Not on file Obstetrics History Para Term AB IAB SAB Ectopic Multiple Livin g Live Births 6 3 3 3 2 1 0 3 3 Date Outcome GA Total Labor Labor/2nd/3rd Weight Sex Type Anes PTL Fariba A1 A5 Name Clin 2010 SAB 2011 Term 40w 0d 3.487 kg (7 lb 11 oz) Livin g Complications:Pre eclampsia 2015 Term 38w 5d 0h 15m 0h 15m 3.33 kg (7 lb 5.5 oz) F Epidur al Livin g 9 9 Holly sweet MD Delivery Location:[facility] 2017 IAB 2021 IAB 2022 Term 38w 0d 12h 29m 12h 25m/0h 01m/0h 03m 3.48 kg (7 lb 10.8 oz) M Vagina l Epidur al N Livin g 3 6 BONNY CARMEN, Subha Hooper MD Complications:None Delivery Location:[facility] Main C ampus ([facility] L AND D PROCEDURE) Last Filed Vital Signs Vital Sign Reading Time Taken Comments Blood Pressure 120/85 11/05/2023 1:31 PM CDT Pulse 80 11/05/2023 1:31 PM CDT Temperature 36.8 C (98.2 F) 11/05/2023 1:31 PM CDT Respiratory Rate 18 01/09/2023 4:34 AM CDT Oxygen Saturation 97% 02/18/2023 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 Inhaled Oxygen Concentration - - Weight 119.2 kg (262 lb 12.8 oz) 11/05/2023 1:31 PM CDT Height 165.1 cm (5' 5) 11/05/2023 1:31 PM CDT Body Mass Index 43.73 11/05/2023 1:31 PM CDT Plan of Treatment Health Maintenance Due Date Last Done Comments Albumin Creatinine Ratio, Urine 1994 Dilated Eye Exam 1994 Foot Exam 1994 Varicella Vaccines (1 of 2 - 13+ 2-dose series) 06/26/2007 HPV Vaccines (2 - 2-dose series) 07/11/2009 01/12/20 09 Regular Well Visit/Exam 18-64 2012 Pneumococcal vaccine <65 (1 of 2 - PCV) 2013 Cervical Cancer Screening 11/20/2015 11/19/2014 Lipid Panel 08/02/2023 08/01/2022 Depression Screening 02/19/2024 02/18/2023 Hemoglobin A1C 05/05/2024 11/05/2023, 02/05, 09/14/2022, Additional history exists eGFR 06/21/2024 06/22/2023, 10/2022, 01/07/2023, Additional history exists Covid-19 Vaccine (4 - 2024-2 6 season) 2024 08/14/2021, 10/07/2020, 09/09/2020 Influenza Vaccine (#1) 2024 12/15/2022, 2014 DTaP/Tdap/Td Vaccine (4 - Td or Tdap) 12/15/2032 12/15/2022, 01/24/2015, 01/19/1996 Hepatitis B Screening Completed 01/19/1996 Hepatitis C Screening Completed 09/14/2022 Procedures Procedure Name Priority Date/Time Associated Diagnosis Comments POCT HEMOGLOBIN A1C Routine 11/05/2023 1 :40 PM CDT Type 2 diabetes mellitus without complication, without long-term current use of insulin (HCC) EGFR Routine 06/22/2023 3:32 PM CDT Type 2 diabetes mellitus without complication, without long-term current use of insulin (HCC) HEPATITIS C ANTIBODY Routine 09/14/2022 from Last 3 Months or Most Recently Relevant to Health Maintenance Results * POCT hemoglobin A1c (11/05/2023 1:40 PM CDT) Pathologist [facility] Hemoglobin A1C, POC 5.8 4.0 - 5.6 % Blood 11/05/2023 1:40 PM CDT Elvin Welch MD POINT OF CARE TEST ORDERABLES Final Result * eGFR (06/22/2023 3:32 PM CDT) eGFR 82 >=60 mL/min/1. 73 m2 Comment: Interpretive Data Reference Interval Normal >/= 90 mL/min/1.73m2 Mildly decreased* 60 - 89 mL/min/1.73m2 Mildly to moderately decreased 45 - 59 mL/min/1.73m2 Moderately to severely decreased 30 - 44 mL/min/1.73m2 Severely decreased 15 - 29 mL/min/1.73m2 Kidney Failure < 15 mL/min/1.73m2 *Relative to young adult level Estimated glomerular filtration rate is determined by the 2020 CKD-EPI equation recommended by the National Kidney Foundation (A Unifying Approach to GFR Estimation: Recommendations of the NKF-ASK Task Force on Reassessing the Inclusion of Race in Diagnosing Kidney Disease, JASN 2020). The CKD-EPI equation should not be used for patients with unstable renal function and has not been validated in children and those over 70. Current interpretive data was last reviewed 2021. Blood 06/22/2023 3:32 PM CDT 06/22/2023 4:25 PM CDT us Grace Gaming MD LAB BLOOD ORDERABLES Final Result [facility] Department [place] [address] * Hepatitis C antibody (09/14/2022) SCRIBED HCV ab nonreactive Blood us Hayden Gonzalez MD LAB MICROBIOLOGY - GENERAL OR DERABLES Final Result from Last 3 Months or Most Recently Relevant to Health Maintenance Insurance [facility] MEDIC[facility] Advance Directives For more information, please contact: [phone] * Full Code (Latest Code Status on File) Date Activated Date Inactivated Comments 01/08/2023 12:47 AM 01/09/2023 9:17 PM * Full Code Date Activated Date Inactivated Comments 01/06/2023 11:32 PM 01/08/2023 12:47 AM Full CPR i n case of cardiopulmonary arrest Care Teams Pattern Technician Relationship Specialty Start Date End Date No, Physician PCP - General 01/01/23
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
--- OUTSIDE RECORDS SUMMARY | 2025-02-26 09:03 | XMS_ITS | Clinical Summary ---
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 Gender Identity Not on file Sexual Orientation Not on file Plan of Treatment Health Maintenance Due Date Last Done Comments Hepatitis B Vaccines (2 of 3 - 3-dose series) 02/16/1996 01/19/1996 Annual Physical 1997 HPV Vaccines (2 - 2-dose series) 07/11/2009 01/11/2009 Cervical Cancer Screening Pap Smear (Age 30 to 64) Every 3 Years 11/19/2017 11/19/2014 Cervical Cancer Screening Pap with HPV Testing (Age 30 to 64) Every 5 Years 2024 Cervical Cancer Screening with HPV 2024 COVID-19 Vaccine ( season) 2024 08/14/2021, 10/07/2020, 09/09/2020 Influenza Adult (#1) 2024 12/15/2022, 01/25/20 15 DTaP, Tdap and Td Vaccines (5 - Td or Tdap) 12/15/2032 12/15/2022, 03/08/2016, 01/24/2015, Additional history exists Hepatitis C Completed 09/04/2019 Hepatitis A Vaccines Aged Out No long er eligible based on patient's age to complete this topic Meningococcal B Vaccine Aged Out No l onger eligible based on patient's age to complete this topic Meningococcal Vaccine Aged Out No alejandra javier eligible based on patient's age to complete this topic Pneumococcal Vaccine: Pediatrics (0 to 5 Years) and At-Risk Patients (6 to 49 Years) Aged Out No longer eligible based on patient's age to complete this topic RSV Immunizations Under 20 Months Aged Out No longer eligible based on patient's age to complete this topic Insurance [place] MED[place]
--- OUTSIDE RECORDS SUMMARY | 2025-02-26 09:03 | XMS_ITS ---
Author Organization [facility] Address [address] [place] [address] Phone Care Team Providers Care Supervisory Historian Name Role Phone HAYDEN PANCHAL M.D. Primary Care Provider [phone] Problems Includes: Active, inactive, and resolved Problems All Visits Onset Date Resolved Date Provider Condition S tatus Assessment of Previous Colposcopy 07/13/2020 HAYDEN PANCHAL MD Active Last Documented On 1 8:05PM ; [facility] Obesity 07/13/2020 HAYDEN PANCHAL MD Acti ve Last Documented On 1 8:04PM ; [facility] Screening For Unspecified Condition 07/13/2020 HAYDEN PANCHAL MD Active Last Documented On 1 8:04PM ; [facility] Tenosynovitis Left Elbow 01/10/2020 BALJINDER CORRAL TIP PRINTER-C Inactive Last Documented On 0 1:08PM ; [facility] Previous Colposcopy 11/06/2019 RAJENDRA MATHIAS CERTIFIED PEST CONTROL TECHNICIAN-BC Active Last Documented On 11/06/2019 8:28AM ; [facility] Note: [facility] Herpes Simplex 11/06/2019 RAJENDRA MATHIAS NP-BC Active Last Documented On 11/06/2019 8:28AM ; [facility] Note: + type II blood titers at outside clinic Bipolar Disorder Nos 11/01/2019 HAYDEN ROSS MD Active Last Documented On 0 3:18PM ; [facility] Borderline Personality Disorder 11/01/2019 HAYDEN PANCHAL MD Active Last Documented On 11/01/2019 3:19PM ; [facility] Note: reported by patient as diagnosis rashad vasquez her by her therapist at [facility]. Zabrina Thyroiditis (Chronic Lymphocytic) 11/01/2019 HAYDEN PANCHAL MD Activ e Last Documented On 0 3:23PM ; [facility] Dysmenorrhea 11/01/2019 HAYDEN PANCHAL MD Ac tive Last Documented On 0 3:19PM ; [facility] Post-traumatic Stress Disorder 11/01/2019 HAYDEN PANCHAL MD Active Last Documented On 0 3:18PM ; [facility] Plan of Treatment Findings Encounter Date Ordered follow-up visit 3 month CHECK UP with MAIRA PANCHAL MD 10/10/2020 Last Documented On 1 5:35PM ; [facility] Ordered return to the clinic if condition worsens or new symptoms arise CHECK UP with HAYDEN PANCHAL MD 10/10/2020 Last Documented On 1 5:35PM ; [facility] PLAN [Use for s.o.a.p. note free text] CHECK UP with HAYDEN PANCHAL MD 10/10/2020 Last Documented On 1 5:35PM ; [facility] Ordered Clinical summary pro vided to patient PROBLEM VISIT with RAJENDRA BUENO 07/10/2020 Last Documented On 1 9:38AM ; [facility] Ordered follow-up visit 3 month CHECK UP with MAIRA PANCHAL MD 07/09/2020 Last Documented On 1 8:10PM ; [facility] Ordered return to the clinic if condition worsens or new symptoms arise CHECK UP with HAYDEN PANCHAL MD 07/09/2020 Last Documented On 1 8:10PM ; [facility] PLAN [Use for s.o.a.p. note free text] CHECK UP with HAYDEN PANCHAL MD 07/09/2020 Last Documented On 1 8:10PM ; [facility] Ordered Clinical summary pro vided to patient PROBLEM VISIT with RAJENDRA BUENO 05/08/2020 Last Documented On 1 3:44PM ; [facility] Clinical summary provided to patient PRO BLEM VISIT with BALJINDER WINSTON TIP PRINTER-C 02/14/2020 Last Documented On 0 2:15PM ; [facility] Plan of care reviewed and agreed to PROB SHAMIR VISIT with BALJINDER WINSTON TIP PRINTER-C 02/14/2020 Last Documented On 0 2:15PM ; [facility] Clinical summary provided to patient PRO BLEM VISIT with BALJINDER WINSTON TIP PRINTER-C 01/24/2020 Last Documented On 0 1:12PM ; [facility] Plan of care reviewed and agreed to PROB SHAMIR VISIT with BALJINDER WINSTON TIP PRINTER-C 01/24/2020 Last Documented On 0 1:12PM ; [facility] Ordered follow-up visit 3 mo nths, call if not improved with ibuprofen/ aleve PROBLEM VISIT with HAYDEN PANCHAL MD 01/10/2020 Last Documented On 0 3:05PM ; [facility] Ordered return to the clinic if condition worsens or new symptoms arise PROBLEM VISIT with HAYDEN PANCHAL MD 01/10/2020 Last Documented On 0 3:05PM ; [facility] PLAN [Use for s.o.a.p. note free text] PROBLEM VISIT with HAYDEN PANCHAL MD 01/10/2020 Last Documented On 0 3:05PM ; [facility] Ordered follow-up visit 3months CONSULTATION berry PANCHAL MD 11/29/2019 Last Documented On 0 12:05PM ; [facility] Ordered return to the clinic if condition worsens or new symptoms arise CONSULTATION with HAYDEN PANCHAL MD 11/29/2019 Last Documented On 0 12:05PM ; [facility] PLAN [Use for s.o.a.p. note free text] CONSULTATION with HAYDEN PANCHAL MD 11/29/2019 Last Documented On 0 12:05PM ; [facility] Ordered Clinical summary pro vided to patient NEW FRUIT TRIMMER EXAM with RAJENDRA MADSENYOSEF 11/06/2019 Last Documented On 0 8:58AM ; [facility] Ordered follow-up visit 1 yr or as needed NEW PATIENT VISIT with HAYDEN PANCHAL MD 11/01/2019 Last Documented On 0 4:06PM ; [facility] Ordered return to the clinic if condition worsens or new symptoms arise NEW PATIENT VISIT with HAYDEN PANCHAL MD 11/01/2019 Last Documented On 0 4:06PM ; [facility] PLAN [Use for s.o.a.p. 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 Last Documented On 1 3:53PM ; [facility] Instructions to patient Intervention and counseling on cessation of tobacco use Last Documented On 1 10:14AM ; [facility] Instructions for patient : Last Documented On 1 9:20AM ; [facility] Instructions For Patient: pe lvic rest until test results back Last Documented On 1 9:20AM ; [facility] Safe sex counseling Last Documented On 1 9:38AM ; [facility] Intervention and counseling on cessation of tobacco use : Patient recieved smoking cessation handout Last Documented On 1 1:54PM ; [facility] Instructions For Patient: pe lvic rest until test results back Last Documented On 1 3:22PM ; [facility] Safe sex counseling Last Documented On 1 3:43PM ; [facility] Instructions for patient : B reast Self Exam discussed Last Documented On 0 8:25AM ; [facility] Instructions for patient : p atient is to keep a menstrual diary to help with further evaluation and treatment Last Documented On 0 8:41AM ; [facility] Instructions for patient : K eep the area around the vulva dry. Allow the area to have exposure to air. Avoid irritants such as fabric softeners and perfumed soaps.~ Last Documented On 0 8:58AM ; [facility] Return to the clinic if cond ition worsens or new symptoms arise Last Documented On 0 8:41AM ; [facility] Lose weight Last Documented On 0 8:27AM ; [facility] Advised d/c scented bath pro ducts Last Documented On 0 8:58AM ; [facility] ER/ Pain Precautions Last Documented On 0 8:41AM ; [facility] Gardasil information given a nd series encouraged Last Documented On 0 8:27AM ; [facility] Safe sex counseling Last Documented On 0 8:27AM ; [facility] Education and Decision Aids were provided during visit for: Patient education : Last Documented On 1 9:20AM ; [facility] HIV counseling given Last Documented On 1 9:20AM ; [facility] Patient education : Last Documented On 1 3:22PM ; [facility] Patient counseling : STD pre vention. I discussed with the patient that condoms can reduce the chance of getting an STD but not eliminate it. Increased exposure from multiple sex partners also discussed Last Documented On 1 3:22PM ; [facility] HIV counseling given Last Documented On 1 3:22PM ; [facility] Patient Education: Daily alison cium and vitamin D Last Documented On 0 8:25AM ; [facility] Patient Education: weight be aring exercise Last Documented On 0 8:25AM ; [facility] Bacterial Vaginosis Informat ion Sheet Given Last Documented On 0 8:58AM ; [facility] Assessments Includes: Assessments for all patient encounters Findings Encounter Date Trichomoniasis [facility] Last Documented On 1 9:38AM ; [facility] Assessment of previous colposcopy CHECK UP with HAYDEN PANCHAL MD 07/09/2020 Last Documented On 1 8:10PM ; [facility] Bipolar disorder NOS CHECK UP with HAYDEN STRONG MD 07/09/2020 Last Documented On 1 8:10PM ; [facility] Dysmenorrhea CHECK UP with HAYDEN PANCHAL MD 07/09/2020 Last Documented On 1 8:10PM ; [facility] Zabrina thyroiditis CHECK UP with HAYDEN CRUZ MD 07/09/2020 Last Documented On 1 8:10PM ; [facility] Herpes simplex CHECK UP with HAYDEN PANCHAL MD 07/09/2020 Last Documented On 1 8:10PM ; [facility] Post-traumatic stress disorder CHECK UP with OMAR PANCHAL MD 07/09/2020 Last Documented On 1 8:10PM ; [facility] Pain in right arm PROBLEM VISIT with BALJINDER CORRAL TIP PRINTER-C 02/14/2020 Last Documented On 0 2:15PM ; [facility] Right medial epicondylitis PROBLEM VISIT with TIKI WINSTON TIP PRINTER-C 02/14/2020 Last Documented On 0 2:15PM ; [facility] Lateral epicondylitis of right elbow PRO BLEM VISIT with BALJINDER WINSTON TIP PRINTER-C 01/24/2020 Last Documented On 0 1:12PM ; [facility] Tenosynovitis of right elbow PROBLEM VISIT with BALJINDER WINSTON TIP PRINTER-C 01/24/2020 Last Documented On 0 1:12PM ; [facility] Tenosynovitis of left elbow PROBLEM VISIT with Vashti PANCHAL MD 01/10/2020 Last Documented On 0 3:05PM ; [facility] Assessment of previous colposcopy CONSULTATION w paulino PANCHAL MD 11/29/2019 Last Documented On 0 12:05PM ; [facility] Bipolar disorder NOS CONSULTATION with HAYDEN KNIGHT MD 11/29/2019 Last Documented On 0 12:05PM ; [facility] Borderline personality disorder CONSULTATION wit genaro PANCHAL MD 11/29/2019 Last Documented On 0 12:05PM ; [facility] Dysmenorrhea CONSULTATION with HAYDEN EMERY MD 11/29/2019 Last Documented On 0 12:05PM ; [facility] Zabrina thyroiditis CONSULTATION with HAYDEN PANCHAL MD 11/29/2019 Last Documented On 0 12:05PM ; [facility] Post-traumatic stress disorder CONSULTATION with HAYDEN PANCHAL MD 11/29/2019 Last Documented On 0 12:05PM ; [facility] Dysmenorrhea NEW FRUIT TRIMMER EXAM with RAJENDRA BRUNNER- 11/06/2019 Last Documented On 0 8:58AM ; [facility] Bipolar disorder NOS --- Teg retol, Zoloft............specialist Jayne Al at [facility] NEW PATIENT VISIT with HAYDEN PANCHAL MD 11/01/2019 Last Documented On 0 4:06PM ; [facility] Borderline personality disorder [facility] [place] ENT VISIT with HAYDEN PANCHAL MD 11/01/2019 Last Documented On 0 4:06PM ; [facility] Dysmenorrhea NEW PATIENT VISIT with HAYDEN KNIGHT MD 11/01/2019 Last Documented On 0 4:06PM ; [facility] Zabrina thyroiditis --- ? [place] thyroid?.... 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 in [employer] NEW PATIENT VISIT with HAYDEN PANCHAL MD 11/01/2019 Last Documented On 0 4:06PM ; [facility] Post-traumatic stress disorder NEW PATIENT VISIT with HAYDEN PANCHAL MD 11/01/2019 Last Documented On 0 4:06PM ; [facility] Instructions Includes: Instructions for all patient encounters Instructions to patient Intervention and counseling on cessation of tobacco use Last Documented On 1 10:14AM ; [facility] Instructions for patient : Last Documented On 1 9:20AM ; [facility] Instructions For Patient: pe lvic rest until test results back Last Documented On 1 9:20AM ; [facility] Safe sex counseling Last Documented On 1 9:38AM ; [facility] Intervention and counseling on cessation of tobacco use : Patient recieved smoking cessation handout Last Documented On 1 1:54PM ; [facility] Instructions For Patient: pe lvic rest until test results back Last Documented On 1 3:22PM ; [facility] Safe sex counseling Last Documented On 1 3:43PM ; [facility] Instructions for patient : B reast Self Exam discussed Last Documented On 0 8:25AM ; [facility] Instructions for patient : p atient is to keep a menstrual diary to help with further evaluation and treatment Last Documented On 0 8:41AM ; [facility] Instructions for patient : K eep the area around the vulva dry. Allow the area to have exposure to air. Avoid irritants such as fabric softeners and perfumed soaps.~ Last Documented On 0 8:58AM ; [facility] Return to the clinic if cond ition worsens or new symptoms arise Last Documented On 0 8:41AM ; [facility] Lose weight Last Documented On 0 8:27AM ; [facility] Advised d/c scented bath pro ducts Last Documented On 0 8:58AM ; [facility] ER/ Pain Precautions Last Documented On 0 8:41AM ; [facility] Gardasil information given a nd series encouraged Last Documented On 0 8:27AM ; [facility] Safe sex counseling Last Documented On 0 8:27AM ; [facility] Education and Decision Aids were provided during visit for: Patient education : Last Documented On 1 9:20AM ; [facility] HIV counseling given Last Documented On 1 9:20AM ; [facility] Patient education : Last Documented On 1 3:22PM ; [facility] Patient counseling : STD pre vention. I discussed with the patient that condoms can reduce the chance of getting an STD but not eliminate it. Increased exposure from multiple sex partners also discussed Last Documented On 1 3:22PM ; [facility] HIV counseling given Last Documented On 1 3:22PM ; [facility] Patient Education: Daily alison cium and vitamin D Last Documented On 0 8:25AM ; [facility] Patient Education: weight be aring exercise Last Documented On 0 8:25AM ; [facility] Bacterial Vaginosis Informat ion Sheet Given Last Documented On 0 8:58AM ; [facility] Medical Equipment - Implanted Devices Includes: Current and historical Devices No Medical Equipment Recorded Medications Includes: Current and historical Medications Current Medications (continue as prescribed) Topiramate 100 MG Oral Tablet 10/10/2020 Provider: HAYDEN PANCHAL MD Diagnosis: Obesity, unspeci fied TAKE 1 TABLET BY MOUTH TWICE DAILY Last Documented On 1 12:41PM By HAYDEN PANCHAL MD ; [facility] Emporium Thyroid 60 MG Oral Tablet 10/10/2020 Provider: HAYDEN PANCHAL MD Diagnosis: Autoimmune thyro iditis one daily Last Documented On 1 12:41PM By HAYDEN PANCHAL MD ; [facility] Acyclovir 800 MG Oral Tablet 10/10/2020 Provider: HAYDEN PANCHAL MD Diagnosis: One tablet daily Last Documented On 1 12:41PM By HAYDEN PANCHAL MD ; [facility] Acyclovir 800 MG Oral Tablet 07/10/2020 Provider: RAJENDRA BRUNNER-BC Diagnosis: One tablet twice a day Last Documented On 1 9:35AM By RAJENDRA MATHAIS RADHA-BC ; [facility] Abilify 10 MG Oral Tablet 07/09/2020 Provider: Diagnosis: Last Documented On 07/09/2020 1:57PM By Carmita SINGH ; [facility] Topiramate 50 MG Oral Tablet 06/02/2020 Provider: HAYDEN PANCHAL MD Diagnosis: Overweight TAKE 1 TABLET BY MOUTH TWICE DAILY Last Documented On 06/02/2020 9:05AM By HAYDEN PANCHAL MD ; [facility] Flagyl 500 MG Oral Tablet 05/08/2020 Provider: DOMONIQUE MATHIAS RADHA-BC Diagnosis: One tablet twice a day Last Documented On 1 3:41PM By RAJENDRA AMTHIAS [facility] ; [facility] Abilify 5 MG Oral Tablet 05/08/2020 Provider: Diagnosis: Last Documented On 05/08/2020 3:25PM By Racquel Rider MA ; [facility] Zoloft 50 MG Oral Tablet 11/01/2019 Provider: Diagnosis: Last Documented On 0 1:55PM By YANIRA SINGH ; [facility] Paragard Intrauterine Copper Intrauterine device 11/16 Provider: Diagnosis: Last Documented On 11/06/2019 8:42AM By ROBERTO SINGH ; [facility] Past Medications on file Topiramate 100 MG Oral Tablet 08/13/2020 - 10/10/2020 Provider: HAYDEN PANCHAL MD Diagnosis: Obesity, unspeci fied TAKE 1 TABLET BY MOUTH TWICE DAILY Last Documented On 12:41PM By HAYDEN PANCHAL MD ; [facility] Acyclovir 800 MG Oral Tablet 07/10/2020 - 10/10/2020 P isabelvider: RAJENDRA MATHIAS [facility] Diagnosis: One tablet daily Last Documented On 12:41PM By HAYDEN PANCHAL MD ; [facility] Topamax 100 MG Oral Tablet 07/09/2020 - 08/13/2020 Provider: HAYDEN Hansen MD Diagnosis: Obesity, unspeci fied One tablet twice a day Last Documented On 08/13/2020 9:13AM By Carmita SINGH ; [facility] Em[employer]ium Thyroid 60 MG Oral Tablet 07/09/2020 - 10/10/2020 Provider: HAYDEN PANCHAL MD Diagnosis: Autoimmune thyro iditis one daily Last Documented On 12:41PM By HAYDEN PANCHAL MD ; [facility] carBAMazepine ER 400 MG Oral Tablet Extended Release 12 Hour 06/03/2020 - 07/09/2020 Provider: HAYDEN PANCHAL MD Diagnosis: Bipolar disorder , unspecified TAKE 1 TABLET BY MOUTH IN TH E MORNING AND 1 TABLET IN THE EVENING Last Documented On 07/09/2020 1:57PM By Carmita SINGH ; [facility] Topamax 50 MG Oral Tablet 03/06/2020 - 06/02/2020 Prov ider: HAYDEN PANCHAL MD Diagnosis: Overweight One tablet twice a day Last Documented On 06/02/2020 9:05AM By HAYDEN PANCHAL MD ; [facility] TEGretol-XR 400 MG Oral Tablet Extended Release 12 Hour 03/06/2020 - 06/03/2020 Provider: HAYDEN PANCHAL MD Diagnosis: Bipolar disorder , unspecified take one in am and one in pm Last Documented On 06/03/2020 1:10PM By Carmita SINGH ; [facility] predniSONE 20 MG Oral Tablet 02/14/2020 - 05/08/2020 Provider: BALJINDER WINSTON TIP PRINTER-C Diagnosis: Medial epicondyl itis, right elbow One tablet daily Last Documented On 05/08/2020 3:25PM By Racquel Rider MA ; [facility] predniSONE 20 MG Oral Tablet 01/24/2020 - 02/14/2020 Provider: BALJINDER WINSTON TIP PRINTER-C Diagnosis: Lateral epicondylitis, right elbow take 2 tabs daily X 7 days, 1 tab daily X 7 days then stop. Last Documented On 0 1:25PM By DIEGO SINGH ; [facility] Topamax 50 MG Oral Tablet 11/29/2019 - 03/06/2020 Prov ider: HAYDEN PANCHAL MD Diagnosis: Overweight One tablet twice a day Last Documented On 0 10:06AM By Carmita SINGH ; [facility] [employer] Thyroid 60 MG Oral Tablet 11/29/2019 - 07/09/2020 Provider: HAYDEN PANCHAL MD Diagnosis: Autoimmune thyro iditis one daily Last Documented On 07/09/2020 4:23PM By HAYDEN PANCHAL MD ; [facility] TEGretol-XR 400 MG Oral Tablet Extended Release 12 Hour 11/29/2019 - 03/06/2020 Provider: HAYDEN PANCHAL MD Diagnosis: Bipolar disorder , unspecified take one in am and one in pm Last Documented On 0 10:07AM By Carmita SINGH ; [facility] Flagyl 500 MG Oral Tablet 11/06/2019 - 11/29/2019 Prov ider: RAJENDRA MATHIAS [facility]- Diagnosis: One tablet twice a day Last Documented On 11/29/2019 2:39PM By LILLY SINGH ; [facility] TEGretol-XR 400 MG Oral Tabl et Extended Release 12 Hour 11/01/2019 - 11/29/2019 Provider: Diagnosis: take one in am and one in pm Last Documented On 11/29/2019 5:00PM By HAYDEN PANCHAL MD ; [facility] Emporium Thyroid 60 MG Oral Tablet 11/01/2019 - 11/29/19 20 Provider: Diagnosis: one daily Last Documented On 11/29/2019 4:58PM By HAYDEN PANCHAL MD ; [facility] [place]ium Thyroid 30 MG Oral Tablet 11/01/2019 - 11/29/19 20 Provider: Diagnosis: one daily Last Documented On 11/29/2019 4:58PM By HAYDEN PANCHAL MD ; [facility] Paragard Intrauterine Copper Intrauterine device 11/16/2017 - 11/06/2019 Provider: Diagnosis: Last Documented On 11/06/2019 8:42AM By ROBERTO SINGH ; [facility] Paragard Intrauterine Copper Intrauterine device 11/16/2017 - 11/06/2019 Provider: Diagnosis: Inserted at [facility] Last Documented On 0 8:39AM By RAJENDRA MATHIAS [facility] ; [facility] Medications Administered Includes: Administered Medications in patient's chart No Administered Medications Recorded Results Includes: Results from 02/27/2024 through 02/26/2025 No Results Recorded For Specified Dates History of Present Illness History of Present Illness not supported for this document type No History of Present Illness Recorded Social History Description Last Updated Current nonsmoker 07/10/2020 Last Documented On 1 9:38AM ; [facility] Good exercise habits 07/10/2020 Last Documented On 1 9:38AM ; [facility] In monogamous relationship 07/10/2020 Last Documented On 1 9:38AM ; [facility] No caffeine use 07/10/2020 Last Documented On 1 9:38AM ; [facility] No family problems 07/10/2020 Last Documented On 1 9:38AM ; [facility] No interpersonal problems 07/10/2020 Last Documented On 1 9:38AM ; [facility] [facility] No job change 07/10/2020 Last Documented On 1 9:38AM ; [facility] No physical disability 07/10/2020 Last Documented On 1 9:38AM ; [facility] No recent financial changes 07/10/2020 Last Documented On 1 9:38AM ; [facility] No recent legal problems 07/10/2020 Last Documented On 1 9:38AM ; [facility] No work-related circumstances 07/10/2020 Last Documented On 1 9:38AM ; [facility] Non-smoker 07/10/2020 Last Documented On 1 9:38AM ; [facility] Not a current smoker 07/10/2020 Last Documented On 1 9:38AM ; [facility] Not using alcohol 07/10/2020 Last Documented On 1 9:38AM ; [facility] Not using drugs 07/10/2020 Last Documented On 1 9:38AM ; [facility] Sexually active with 50 partners in the last year 07/10/2020 Last Documented On 1 9:38AM ; [facility] Smoking status : Former smoker Last Documented On 1 9:38AM ; [facility] Procedures and Surgical History Surgical History Last Updated Dilation + Curettage 2018 07/10/2020 Last Documented On 1 9:38AM ; [facility] Medical History Includes: Medical History in patient's chart Description Last Updated Last pap smear date 04/04/2019 03/24/2021 Last Documented On 2 11:35AM ; [facility] Aborta 2 07/10/2020 Last Documented On 1 9:38AM ; [facility] Contraception: paragard 11-16-17 07/11/19 Last Documented On 1 9:38AM ; [facility] 4 07/10/2020 Last Documented On 1 9:38AM ; [facility] History of depression Pt is bi polar 07/2020 Last Documented On 1 9:38AM ; [facility] History of Pap smear done 2019 1 Last Documented On 1 9:38AM ; [facility] History of thyroid disorder Hoshimotos 0 07/10/2020 Last Documented On 1 9:38AM ; [facility] LMP: 04/27/2020 07/10/2020 Last Documented On 1 9:38AM ; [facility] Para 2 07/10/2020 Last Documented On 1 9:38AM ; [facility] Result: normal 07/10/2020 Last Documented On 1 9:38AM ; [facility] Sexually active 07/10/2020 Last Documented On 1 9:38AM ; [facility] Family History Includes: Family History in patient's chart Description Last Updated Fraternal history of diabetes mellitus 1 /2 brother 11/06/2019 Last Documented On 0 8:58AM ; [facility] Maternal history of hypertension parents 11/06/2019 Last Documented On 0 8:58AM ; [facility] Maternal history of pure hypercholestero lemia parents 11/06/2019 Last Documented On 0 8:58AM ; [facility] Review of Systems Review of Systems not supported for this document type No Review of Systems Recorded Mental Status No Mental Status Recorded Functional Status No Functional Status Recorded Physical Exam Physical Exam not supported for this document type No Physical Exam Recorded Allergies Includes: Active, inactive, and resolved Allergies No Known Allergies Insurance Includes: Active Insurance Policies Plan Name Member ID Group # Subscriber Relationship Effect akbar Dates 1 - [facility] [id number] LUZ Fox Clinical Notes Includes: Signed Clinical Notes starting from 03/27/2022 No Clinical Notes Recorded
--- OUTSIDE RECORDS SUMMARY | 2025-02-26 09:04 | XMS_ITS ---
Care Plan - [facility] Created on: February 26, 2025 LUZ RENO : 1995 Sex: Female Author Organization [facility] Address [address] [place] [address] Phone Care Team Providers Care Radial Drill Operator Name Role Phone HAYDEN PANCHAL M.D. Primary Care Provider [phone]
--- OUTSIDE RECORDS SUMMARY | 2025-02-26 09:04 | XMS_ITS | Clinical Summary ---
Author Organization [facility] Address [address] [place] [address] Phone Care Team Providers Care Medical Education Manager Name Role Phone HAYDEN PANCHAL M.D. Primary Care Provider [phone] Reason for Visit and Chief Complaint NO SHOW Problems Includes: Problems addressed during this encounter and other active Problems All Visits Onset Date Resolved Date Provider Condition S tatus Assessment of Previous Colposcopy 07/13/2020 HAYDEN PANCHAL MD Active Last Documented On 1 8:05PM ; [facility] Obesity 07/13/2020 HAYDEN PANCHAL MD Acti ve Last Documented On 1 8:04PM ; [facility] Screening For Unspecified Condition 07/13/2020 HAYDEN PANCHAL MD Active Last Documented On 1 8:04PM ; [facility] Previous Colposcopy 11/06/[address] LAB TECHNICIAN-BC Active Last Documented On 11/06/2019 8:28AM ; [facility] Note: [facility] Herpes Simplex 11/06/2019 RAJENDRA MATHIAS NP-BC Active Last Documented On 11/06/2019 8:28AM ; [facility] Note: + type II blood titers at outside clinic Bipolar Disorder Nos 11/01/2019 HAYDEN ROSS MD Active Last Documented On 0 3:18PM ; [facility] Borderline Personality Disorder 11/01/2019 HAYDEN PANCHAL MD Active Last Documented On 11/01/2019 3:19PM ; [facility] Note: reported by patient as diagnosis rashad vasquez her by her therapist at [facility] in [place]. [place]rina Thyroiditis (Chronic Lymphocytic) 11/01/2019 HAYDEN PANCHAL MD Activ e Last Documented On 0 3:23PM ; [facility] Dysmenorrhea 11/01/2019 HAYDEN PANCHAL MD Ac tive Last Documented On 0 3:19PM ; [facility] Post-traumatic Stress Disorder 11/01/2019 HAYDEN PANCHAL MD Active Last Documented On 0 3:18PM ; [facility] Plan of Treatment No [...] 1 12:41PM By HAYDEN PANCHAL MD ; [facility] [place] Thyroid 60 MG Oral Tablet 10/10/2020 Provider: HAYDEN PANCHAL MD Diagnosis: Autoimmune thyro iditis one daily Last Documented On 1 12:41PM By HAYDEN PANCHAL MD ; [facility] Acyclovir 800 MG Oral Tablet 10/10/2020 Provider: HAYDEN PANCHAL MD Diagnosis: One tablet daily Last Documented On 12:41PM By HAYDEN PANCHAL MD ; [facility] Acyclovir 800 MG Oral Tablet 07/10/2020 Provider: RAJENDRA BUENO Diagnosis: One tablet twice a day Last Documented On 1 9:35AM By RAJENDRA BUENO ; [facility] Abilify 10 MG Oral Tablet 07/09/2020 Provider: Diagnosis: Last Documented On 07/09/2020 1:57PM By Carmita SINGH ; [facility] Topiramate 50 MG Oral Tablet 06/02/2020 Provider: HAYDEN PANCHAL MD Diagnosis: Overweight TAKE 1 TABLET BY MOUTH TWICE DAILY Last Documented On 06/02/2020 9:05AM By HAYDEN PANCHAL MD ; [facility] Flagyl 500 MG Oral Tablet 05/08/2020 Provider: DOMONIQUE MATHIAS YESENIA Diagnosis: One tablet twice a day Last Documented On 1 3:41PM By RAJENDRA MATHIAS VELIA ; [facility] Abilify 5 MG Oral Tablet 05/08/2020 Provider: Diagnosis: Last Documented On 05/08/2020 3:25PM By Racquel Rider MA ; [facility] Zoloft 50 MG Oral Tablet 11/01/2019 Provider: Diagnosis: Last Documented On 0 1:55PM By YANIRA SINGH ; [facility] Paragard Intrauterine Copper Intrauterine device 11/16 Provider: Diagnosis: Last Documented On 11/06/2019 8:42AM By ROBERTO SINGH ; [facility] Medications Administered Includes: Administered Medications from [...] Check-Out Time Diagnosis NO SHOW RAJENDRA BUENO [facility] 10/09/2020 8:06AM 11:59PM Insurance Includes: Active Insurance Policies Plan Name Member ID Group # Subscriber Relationship Effect akbar Dates 1 - [facility] [id number] LUZ Fox Clinical Notes Includes: Clinical Notes from this encounter No Clinical Notes Recorded
--- OUTSIDE RECORDS SUMMARY | 2025-02-26 09:04 | XMS_ITS | Encounter Summary ---
Author Organization [facility] Address [address] [place] [address] Care Team Providers Care Food Service Worker Name Role Phone Catina Garcia MD Primary Care Provider [phone] No, Physician Primary Care Provider [phone] Encounter Details Date Type Department Care Team (Late st Contact Info) Description 12/21/2022 Treatment [facility] [address] [address] Pankaj Omer DO [address] [facility] [id number] [place] [address] Social History Tobacco Use Types Packs/Day Years Used Date Smoking Tobacco: Former Smokeless Tobacco: Never Alcohol Use Standard Drinks/Week Comments Yes 0 (1 standard drink = 0.6 oz pur e alcohol) AUDIT-C Answer Date Recorded Frequency of Alcohol Consumption Never 12/28/2018 Average Number of Drinks Not on file 019 Frequency of Binge Drinking Not on file 12/07 [facility] - Occupational Stress Questionnaire Answer Date Recorded Do you feel stress - tense, restless, nervous, or anxious, or unable to sleep at night because your mind is troubled all the time - these days? 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 woman () at 34w4d with complicated by cHTN, GDM, obesity, hypothyroidism, HSV, asthma, bipolar, polyhydramnios, and history of pre-eclampsia. Testing Information: The antibody screen was positive. Antibody identification demonstrated antibodies against the D antigen in the patient's plasma. Additional testing was not performed. Detection of anti-D in this patient's plasma is consistent with the patient's known history of RhIgadministration on 11/15/22 and is therefore categorized as a passive anti-D. All other common, clinically significant antibodies have been ruled out. Clinical Relevance: RhIg is a biologic prepared from human plasma that consists of concentrated antibodies directed against the D antigen on red blood cells. Anti-D antibodies may be implicated in hemolytic transfusion reactions with extravascular hemolysis and hemolytic disease of the fetus and . Therefore, anti-D antibodies attributable to RhIg administration may generally be considered clinically significant as long as the passively acquired anti-D is present in the patient's plasma. Therapeutic Relevance: ABO/Rh and crossmatch compatible red blood cell units will be provided for future transfusions. Contact Information: Please contact the [facility] Blood Bank with any questions. This report has been prepared by: Pankaj Omer DO Cosigned by Ascencion Meneses MD at 12/25/2022 6:06 PM CDT Associated attestation - Ascencion Meneses MD - 12/25/2022 6:06 PM CDT Attestation: I have personally reviewed the antibody result and agree with the interpretation contained in this written blood bank report. Ascencion Meneses MD documented in this encounter Plan of Treatment Not on file documented as of this encounter Visit Diagnoses Not on filedocumented in this encounter Care Teams Food Service Worker Relationship Specialty Start Date End Date Catina Garcia MD [address] [place] [id number] PCP - General 11/19/19 12/31/22 No, Physician PCP - General 01/01/23 documented as of this encounter
--- OUTSIDE RECORDS SUMMARY | 2025-02-26 09:04 | XMS_ITS | Clinical Summary ---
Author Organization [facility] Address [address] [place] [address] Phone Care Team Providers Care Computer Consultant Name Role Phone HAYDEN PANCHAL M.D. Primary Care Provider [phone] Reason for Visit and Chief Complaint The Chief Complaint is: Pt is here to discuss a return to work slip Problems Includes: Problems addressed during this encounter and other active Problems All Visits Onset Date Resolved Date Provider Condition S tatus Assessment of Previous Colposcopy 07/13/2020 HAYDEN PANCHAL MD Active Last Documented On 1 8:05PM ; [facility] Obesity 07/13/2020 HAYDEN PANCHAL MD Acti ve Last Documented On 1 8:04PM ; [facility] Screening For Unspecified Condition 07/13/2020 HAYDEN PANCHAL MD Active Last Documented On 1 8:04PM ; [facility] Previous Colposcopy 11/06/2019 RAJENDRA MATHIAS DATABASE SECURITY ADMINISTRATOR-BC Active Last Documented On 11/06/2019 8:28AM ; [facility] Note: [facility] Herpes Simplex 11/06/2019 RAJENDRA MATHIAS RADHA-BC Active Last Documented On 11/06/2019 8:28AM ; [facility] Note: + type II blood titers at outside clinic Bipolar Disorder Nos 11/01/2019 HAYDEN ROSS MD Active Last Documented On 0 3:18PM ; [facility] Borderline Personality Disorder 11/01/2019 HAYDEN PANCHAL MD Active Last Documented On 11/01/2019 3:19PM ; [facility] Note: reported by patient as diagnosis rashad vasquez her by her therapist at [place] in [place]. Zabrina Thyroiditis (Chronic Lymphocytic) 11/01/2019 HAYDEN PANCHAL MD Activ e Last Documented On 0 3:23PM ; [facility] Dysmenorrhea 11/01/2019 HAYDEN PANCHAL MD Ac tive Last Documented On 0 3:19PM ; [facility] Post-traumatic Stress Disorder 11/01/2019 HAYDEN PANCHAL MD Active Last Documented On 0 3:18PM ; [facility] Plan of Treatment - Return to the clinic if condition worsens or new symptoms arise - Last Documented On 10/20/2020 5:35PM ; [facility] - Follow-up visit 3 month - Last Documented On 10/20/2020 5:35PM ; [facility] PLAN [Use for s.o.a.p. note free text]. - Last Documented On 10/20/2020 5:35PM ; [facility] Instructions to patient Intervention and counseling on cessation of tobacco use Last Documented On 1 10:14AM ; [facility] Assessments Includes: Assessments from this encounter No Assessments Recorded Instructions Includes: Instructions from this encounter Instructions to patient Intervention and counseling on cessation of tobacco use Last Documented On 1 10:14AM ; [facility] Medical Equipment - Implanted Devices Includes: Current Devices No Medical Equipment Recorded Medications Includes: Medications discussed during this encounter and other current Medications New / Renewed during this visit HAYDEN PANCHAL MD on 10/10/2020 Topiramate 100 MG Oral Tablet Provider: HAYDEN PANCHAL MD 30 day supply: 60 tablet, 3 refills Diagnosis: Obesity, unspecified TAKE 1 TABLET BY MOUTH TWICE DAILY Pharmacy: [facility]) - [address] [facility] [facility], [id number] - Last Documented On 1 12:41PM By HAYDEN PANCHAL MD ; [facility] Gordon Thyroid 60 MG Oral Tablet Provider: HAYDEN PANCHAL MD 30 day supply: 30 tablet, 3 refills Diagnosis: Autoimmune thyroiditis one daily Pharmacy: [facility]) - [address] [facility] [facility], [id number] - Last Documented On 12:41PM By HAYDEN PANCHAL MD ; [facility] Acyclovir 800 MG Oral Tablet Provider: HAYDEN PANCHAL MD 30 day supply: 30 tablet, 4 refills Diagnosis: One tablet daily Pharmacy: [facility]) - [address] [facility] [facility], [id number] - Last Documented On 12:41PM By HAYDEN PANCHAL MD ; [facility] Current Medications (continue as prescribed) Acyclovir 800 MG Oral Tablet 07/10/2020 Provider: RAJENDRA BUENO Diagnosis: One tablet twice a day Last Documented On 9:35AM By RAJENDRA BUENO ; [facility] Abilify 10 MG Oral Tablet 07/09/2020 Provider: Diagnosis: Last Documented On 07/09/2020 1:57PM By Carmita SINGH ; [facility] Topiramate 50 MG Oral Tablet 06/02/2020 Provider: HAYDEN PANCHAL MD Diagnosis: Overweight TAKE 1 TABLET BY MOUTH TWICE DAILY Last Documented On 06/02/2020 9:05AM By HAYDEN PANCHAL MD ; [facility] Flagyl 500 MG Oral Tablet 05/08/2020 Provider: DOMONIQUE BUENO Diagnosis: One tablet twice a day Last Documented On 1 3:41PM By RAJENDRA BUENO ; [facility] Abilify 5 MG Oral Tablet 05/08/2020 Provider: Diagnosis: Last Documented On 05/08/2020 3:25PM By Racquel Rider MA ; [facility] Zoloft 50 MG Oral Tablet 11/01/2019 Provider: Diagnosis: Last Documented On 0 1:55PM By YANIRA SINGH ; [facility] Paragard Intrauterine Copper Intrauterine device 11/16 Provider: Diagnosis: Last Documented On 11/06/2019 8:42AM By ROBERTO SINGH ; [facility] Medications Administered Includes: Administered Medications from this encounter No Administered Medications Recorded Vital Signs Includes: Vital Signs from this encounter Vital Name 10/10/2020 10:13A Blood Pressure Sitting R 136/80 BP Cuff Size Regular Pulse Rate-Sitting (bpm) 58 Pulse Rhythm Regular Respiration Rate (breaths/min) 18 Height (in) 65 Weight (lb) 222 Body Mass Index (kg/m2) 36.9 Body Surface Area (m2) 2.1 Oxygen Saturation (%) 97 Last Documented: On 10/10/2020 10:14A M ; [facility] Results Includes: Results discussed during this encounter No Results Recorded For Specified Dates History of Present Illness Includes: History of Present Illness from this encounter CHEO RENO is a 25 year old female. - Allergy list reviewed - Problem list reviewed - Medication reconciliation performed see scanned notes. Social History Description Last Updated Current nonsmoker 07/10/2020 Last Documented On 1 10:13AM ; [facility] Good exercise habits 07/10/2020 Last Documented On 1 10:13AM ; [facility] In monogamous relationship 07/10/2020 Last Documented On 1 10:13AM ; [facility] No caffeine use 07/10/2020 Last Documented On 1 10:13AM ; [facility] No family problems 07/10/2020 Last Documented On 1 10:13AM ; [facility] No interpersonal problems 07/10/2020 Last Documented On 1 10:13AM ; [facility] No job change 07/10/2020 Last Documented On 1 10:13AM ; [facility] No physical disability 07/10/2020 Last Documented On 1 10:13AM ; [facility] No recent financial changes 07/10/2020 Last Documented On 1 10:13AM ; [facility] No recent legal problems 07/10/2020 Last Documented On 1 10:13AM ; [facility] No work-related circumstances 07/10/2020 Last Documented On 10:13AM ; [facility] Non-smoker 07/10/2020 Last Documented On 1 10:13AM ; [facility] Not a current smoker 07/10/2020 Last Documented On 10:13AM ; [facility] Not using alcohol 07/10/2020 Last Documented On 1 10:13AM ; [facility] Not using drugs 07/10/2020 Last Documented On 1 10:13AM ; [facility] Sexually active with 50 partners in the last year 07/10/2020 Last Documented On 1 10:13AM ; [facility] Smoking status : Former smoker Last Documented On 10:13AM ; [facility] Procedures and Surgical History Includes: Procedures from this encounter Procedures Code Diagnosis Performing Provider Service L ocation Service Date continue current medication Last Documented On 5:34PM ; [facility] plan of care reviewed and agreed to Last Documented On 5:34PM ; [facility] intervention and counseling on cessation of 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 account executive use 4000F Last Documented On 1 10:14AM ; [facility] use of tobacco assessment performed 1000F Last Documented On 1 10:14AM ; [facility] patient screened for future fall risk 3288F Last Documented On 10:14AM ; [facility] Clinical summary provided to patient Last Documented On 5:34PM ; [facility] Surgical History Last Updated Dilation + Curettage 201707/10/2020 Last Documented On 1 10:13AM ; [facility] Medical History Includes: Medical History addressed during this encounter Description Last Updated Aborta 2 07/10/2020 Last Documented On 1 10:13AM ; [facility] Contraception: paragard 9-18 07/11/19 21 Last Documented On 1 10:13AM ; [facility] 4 07/10/2020 Last Documented On 1 10:13AM ; [facility] History of depression Pt is bi polar 07/2020 Last Documented On 10:13AM ; [facility] History of Pap smear done 2018 1 Last Documented On 1 10:13AM ; [facility] History of thyroid disorder Hoshimotos 0 07/10/2020 Last Documented On 1 10:13AM ; [facility] LMP: 04/27/2020 07/10/2020 Last Documented On 1 10:13AM ; [facility] Para 2 07/10/2020 Last Documented On 1 10:13AM ; [facility] Result: normal 07/10/2020 Last Documented On 1 10:13AM ; [facility] Sexually active 07/10/2020 Last Documented On 1 10:13AM ; [facility] Family History Includes: Family History addressed during this encounter Description Last Updated Fraternal history of diabetes mellitus 1 /2 brother 11/06/2019 Last Documented On 1 10:13AM ; [facility] Maternal history of hypertension parents 11/06/2019 Last Documented On 1 10:13AM ; [facility] Maternal history of pure hypercholestero lemia parents 11/06/2019 Last Documented On 1 10:13AM ; [facility] Review of Systems Includes: Review of Systems from this encounter Systemic: No fever, no chills, and no night sweats. Head: No headache and no sinus pain. Eyes: No vision problems and no itching of the eyes. Otolaryngeal: No earache, no nasal discharge, no hoarseness, and no sore throat. Cardiovascular: No chest pain or discomfort, no palpitations, and the heart rate was not fast. Pulmonary: No dyspnea, no cough, and no wheezing. Gastrointestinal: No heartburn. No nausea, no vomiting, and no diarrhea. Neurological: No ataxia. Psychological: No fear of falling. Past Medical: No fall in the past 6 months. Mental Status Includes: Mental Status from this encounter No Mental Status Recorded Functional Status Includes: Functional Status from this encounter No Functional Status Recorded Physical Exam Includes: Physical Exam from this encounter Allergies Includes: Active Allergies No Known Allergies Encounters Encounter Provider Location Date Check-In Time Check-Out Time Diagnosis CHECK UP HAYDEN PANCHAL MD [facility]- 1 10:05AM 10:46AM Insurance Includes: Active Insurance Policies Plan Name Member ID Group # Subscriber Relationship Effect akbar Dates 1 - [facility] [id number] LUZ Fox Clinical Notes Includes: Clinical Notes from this encounter No Clinical Notes Recorded
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
[2025-03-19 11:24] VITALS: BMI 33.9
== END 2025-02-27 10:03 | disposition home or self-care (01) ==
PROVIDERS: PCP Internal Medicine; Visit Provider Internal Medicine
DX: G47.30 Sleep apnea, unspecified (principal); Z72.821 Inadequate sleep hygiene
CPT/HCPCS: 95800

== ENCOUNTER 2025-03-02 08:29 | Emergency (ER) | payer MEDICARE, MEDICAID, SELFPAY ==
[2025-03-02 08:41] VITALS: BP 112/73; PULSE 102; RESP 16; TEMP 36.3; O2SAT 99
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
[2025-03-02 08:58] LABS: EDSTREPNEGPOS1 Positive (Negative)
== END 2025-03-02 09:05 | disposition home or self-care (01) ==
PROVIDERS: Emergency Provider Nurse Practitioner Family; PCP Internal Medicine
DX: J02.0 Streptococcal pharyngitis (principal); B37.0 Candidal stomatitis; E03.9 Hypothyroidism, unspecified; I10 Essential (primary) hypertension; Z87.891 Personal history of nicotine dependence
CPT/HCPCS: 87880; 99213; G0463